=== PATIENT | male | born 1965 | race Two or more races ===

== ENCOUNTER 2020-08-16 08:38 | Inpatient (IN) | payer MEDICAID ==
[~2020-08-16] VITALS: Ht 167.6 cm; Wt 64.8 kg
[2020-08-16 09:05] VITALS: BP 152/80
--- NOTE | 2020-08-16 09:10 | NUR ---
ED Nurse Note: Patient walked in to ER c/o bilateral blurry vision with discharge after unknown powder susbstance got into his eyes 3 days ago, pt had difficulty walking starting yesterday. Patient5 is alcoholik, had 4 beers prior arrival. Fever 100.3 on arrival, tachycardic 111 on arrival. Patient AAO x4, skin is hot to touch.
--- NOTE | 2020-08-16 09:34 | NUR ---
ED Nurse Note: IV line was established on left AC 20 ga, blood collected sent to lab
[2020-08-16 09:50] LABS: HEMATOCRIT 36.5 % (42.0-52.0); HEMOGLOBIN 13.5 G/DL (14.2-18.0); MEAN CORPUSCULAR VOLUME 95 FL (80-99); PLATELET COUNT 78 K/UL (150-450); RED BLOOD COUNT 3.84 M/UL (4.70-6.10); RED CELL DISTRIBUTION WIDTH 11.5 % (11.6-14.8)
[2020-08-16 09:55] LABS: WHITE BLOOD COUNT 22.4 K/UL (4.8-10.8)
[2020-08-16] MEDS ORDERED: cefTRIAXone 2 GM in NS 55 ML IVPB ONE (10:00)
[2020-08-16] MEDS ORDERED: chlordiazePOXIDE 25mg Cap ORAL ONE (10:00)
[2020-08-16 10:08] LABS: ANION GAP 12 mmol/L (5-15); BLOOD UREA NITROGEN 11 mg/dL (7-18); CALCIUM 8.1 MG/DL (8.5-10.1); CARBON DIOXIDE 27 MMOL/L (21-32); CHLORIDE 88 MMOL/L (98-107); POTASSIUM 3.1 MMOL/L (3.5-5.1); SODIUM 127 MMOL/L (136-145)
[2020-08-16 10:11] LABS: ALANINE AMINOTRANSFERASE 61 U/L (12-78); ALBUMIN 3.1 G/DL (3.4-5.0); ALBUMIN/GLOBULIN RATIO 0.6 (1.0-2.7); ALKALINE PHOSPHATASE 130 U/L (46-116); ASPARTATE AMINO TRANSFERASE 158 U/L (15-37); BILIRUBIN,TOTAL 5.1 MG/DL (0.2-1.0)
[2020-08-16 10:25] LABS: BILIRUBIN,DIRECT 3.4 MG/DL (0.0-0.3)
[2020-08-16 10:55] VITALS: BP 148/80
--- NOTE | 2020-08-16 10:56 | NUR ---
ED Nurse Note: Patient is going through alcohol withdrawal, become shaky, anxious, VSS at this time.
--- NOTE | 2020-08-16 10:57 | Emergency Room Report ---
History of Present Illness General Chief Complaint: Eye Problems Source: Patient, Family Member Present Illness HPI Patient is an alcoholic. Patient lives on the streets. Patient has a family. He does not live with the family because he would prefer to be drinking. Patient apparently was not feeling well and return to the family yesterday. Patient was noted to have discharge around the eyes. He was also noted to be slightly febrile appear to be withdrawing from alcohol with some shakes and was was brought to the emergency department for further evaluation. Patient actually drank 4 beers before he arrived. Symptoms are more stable. He denies any chest pain or shortness of breath. However states that he does not feel well. Patient is a poor historian. He does complain of some mild blurry vision because of all of the discharge and crusting around his eyes which could be secondary to conjunctivitis. But he is able to see fingers and does see clearly when we are able to clear his eyes up some. He denies any photophobia. Denies any trauma. No other complaints are noted. Symptoms noted to be moderate to severe. No other modifying factors. No other associated signs and symptoms. No other complaints were noted. Allergies: Coded Allergies: No Known Allergies (Unverified , 08/16/20) COVID-19 Screening Contact w/high risk pt: No Experienced COVID-19 symptoms?: No COVID-19 Testing performed APPLICATIONS TRAINER: No COVID-19 Screening: PUI COVID-19 Patient History Past Medical History: none Past Surgical History: none Social History: Reports: alcohol use - Alcohol abuse. Social History Narrative Patient is homeless. Reviewed Nursing Documentation: PMH: Agreed; PSxH: Agreed Nursing Documentation-PM Past Medical History: No History, Except For Hx Diabetes: Yes - prediabetic, no meds Review of Systems All Other Systems: negative except mentioned in HPI Physical Exam Vital Signs Date Time Temp Pulse Resp B/P (MAP) Pulse Ox O2 Delivery O2 Flow Rate FiO2 08/16/20 08:50 100.2 111 20 152/80 (104) 97 Room Air Sp02 EP Interpretation: reviewed, normal General Appearance: alert, moderate distress, thin Head: atraumatic Eyes: bilateral eye normal inspection - Large amount of discharge consistent with conjunctivitis., bilateral eye PERRL, bilateral eye EOMI, bilateral eye photophobia - Negative for photophobia., bilateral eye visual acuity - Complains of blurry vision but able to read fingers., bilateral eye Scleral Injection - Injected sclera bilaterally. ENT: normal ENT inspection, hearing grossly normal, normal voice Neck: normal inspection, full range of motion, supple, no bony tend Respiratory: normal inspection, lungs clear, normal breath sounds, no respiratory distress, no retraction, no wheezing Cardiovascular #1: no edema, tachycardia Gastrointestinal: normal inspection, normal bowel sounds, non tender, soft, no guarding, no hernia Genitourinary: no CVA tenderness Musculoskeletal: normal inspection, back normal, normal range of motion Neurologic: alert, responsive, speech normal, normal inspection Psychiatric: depressed affect, anxious Skin: no rash Procedures Critical Care Time Critical Care Time Patient had a critical medical condition which untreated could potentially result in life or limb threatening injury. Total critical care time excluding procedures was approximately 45 minutes. Medical Decision Making Diagnostic Impression: Primary Impression: Severe sepsis Additional Impressions: Leukocytosis Alcohol withdrawal Conjunctivitis Fever ER Course Patient presents emergency department today with fever body aches conjunctivitis and alcohol withdrawal. Differential diagnosis is broad and includes those previously stated complaints. Other considerations include sepsis. Given the severity of the patient's presentation I felt this is a highly complex patient. This patient required extensive workup. Patient's laboratory work-up shows elevated white blood cell count elevated lactic acid level and in light of patient's low-grade temperature and this is concerning for infection. However I am uncertain of the source. Therefore we will start broad-spectrum IV antibiotics. This was initiated after blood cultures were obtained. Patient was also given 30 cc/kg fluid bolus. Given the lactic acid level is elevated we will repeat lactic acid level. Focused sepsis exam was performed by myself and completed at 11:00. Case was discussed with Dr. Gentry Marino who is on-call for admissions. Patient will be admitted to the service for further evaluation and treatment. Labs Test 08/16/20 09:25 White Blood Count 22.4 K/UL (4.8-10.8) Red Blood Count 3.84 M/UL (4.70-6.10) Hemoglobin 13.5 G/DL (14.2-18.0) Hematocrit 36.5 % (42.0-52.0) Mean Corpuscular Volume 95 FL (80-99) Mean Corpuscular Hemoglobin 35.2 PG (27.0-31.0) Mean Corpuscular Hemoglobin Concent 37.0 G/DL (32.0-36.0) Red Cell Distribution Width 11.5 % (11.6-14.8) Platelet Count 78 K/UL (150-450) Mean Platelet Volume 10.8 FL (6.5-10.1) Neutrophils (%) (Auto) % (45.0-75.0) Lymphocytes (%) (Auto) % (20.0-45.0) Monocytes (%) (Auto) % (1.0-10.0) Eosinophils (%) (Auto) % (0.0-3.0) Basophils (%) (Auto) % (0.0-2.0) Differential Total Cells Counted 100 Neutrophils % (Manual) 81 % (45-75) Lymphocytes % (Manual) 9 % (20-45) Monocytes % (Manual) 10 % (1-10) Eosinophils % (Manual) 0 % (0-3) Basophils % (Manual) 0 % (0-2) Band Neutrophils 0 % (0-8) Platelet Estimate Decreased Platelet Morphology Normal Red Blood Cell Morphology Normal Sodium Level 127 MMOL/L (136-145) Potassium Level 3.1 MMOL/L (3.5-5.1) Chloride Level 88 MMOL/L (98-107) Carbon Dioxide Level 27 MMOL/L (21-32) Anion Gap 12 mmol/L (5-15) Blood Urea Nitrogen 11 mg/dL (7-18) Creatinine 1.0 MG/DL (0.55-1.30) Estimat Glomerular Filtration Rate > 60 mL/min (>60) Glucose Level 177 MG/DL (74-106) Lactic Acid Level 2.70 mmol/L (0.4-2.0) Calcium Level 8.1 MG/DL (8.5-10.1) Total Bilirubin 5.1 MG/DL (0.2-1.0) Direct Bilirubin 3.4 MG/DL (0.0-0.3) Aspartate Amino Transf (AST/SGOT) 158 U/L (15-37) Alanine Aminotransferase (ALT/SGPT) 61 U/L (12-78) Alkaline Phosphatase 130 U/L (46-116) Total Protein 8.7 G/DL (6.4-8.2) Albumin 3.1 G/DL (3.4-5.0) Globulin 5.6 g/dL Albumin/Globulin Ratio 0.6 (1.0-2.7) EKG Diagnostic Results Rate: normal Rhythm: NSR ST Segments: no acute changes Rhythm Strip Diag. Results EP Interpretation: yes Rate: 90's Rhythm: NSR, no PVC's, no ectopy Chest X-Ray Diagnostic Results Chest X-Ray Diagnostic Results : Chest X-Ray Ordered: Yes # of Views/Limited/Complete: 1 View Indication: Other - Sepsis EP Interpretation: Yes Interpretation: no consolidation, no effusion, no pneumothorax, no acute cardiopulmonary disease Impression: No acute disease Electronically Signed by: Electronically signed by Shimon Mendez MD Last Vital Signs Date Time Temp Pulse Resp B/P (MAP) Pulse Ox O2 Delivery O2 Flow Rate FiO2 08/16/20 09:05 100.2 20 152/80 97 Room Air 08/16/20 08:50 111 Status: improved Disposition: ADMITTED INPATIENT Condition: Serious Scripts No Active Prescriptions or Reported Meds Referrals: NOT CHOSEN IPA/,REFERRING (PCP) Shimon Mendez MD Aug 16, 2020 10:57
--- NOTE | 2020-08-16 11:25 | Diagnostic Imaging Report ---
Indication: Cough Technique: One view of the chest Comparison: none Findings: Lungs and pleural spaces are clear. Heart size is normal. Impression: No acute process
[2020-08-16] MEDS ORDERED: LORazepam Inj 2mg/ml 1ml IV PRN ×2 (11:30→12:04)
[2020-08-16] MEDS ORDERED: Miralax 17gm pkt ORAL PRN (11:30)
[2020-08-16] MEDS ORDERED: Zolpidem 5mg tab ORAL PRN (11:30)
[2020-08-16] MEDS ORDERED: chlordiazePOXIDE 25mg Cap ORAL PRN (11:30)
--- NOTE | 2020-08-16 11:34 | Consultation ---
History of Present Illness General Date patient seen: Aug 16, 2020 Chief Complaint: Eye Problems Present Illness HPI 54 year old male with hx of alcohol dependency, homeless presented to ER with CC of . fever, withdrawing from alcohol with some shakes. Patient actually drank 4 beers before he arrived. Patient is a poor historian. He does complain of some mild blurry vision because of all of the discharge and crusting around his eyes. . Denies any trauma. No other complaints are noted. Allergies: Coded Allergies: No Known Allergies (Unverified , 08/16/20) Medication History No Active Prescriptions or Reported Meds Patient History Healthcare decision maker Resuscitation status Advanced Directive on File Past Medical/Surgical History Past Medical/Surgical History: (1) ETOH abuse Review of Systems All Other Systems: negative except mentioned in HPI Physical Exam General Appearance: WD/WN Lines, tubes and drains: peripheral HEENT: normocephalic Neck: non-tender, supple Respiratory/Chest: chest wall non-tender, normal breath sounds Breasts: no masses Genitourinary/Rectal: normal genital exam Extremities: normal range of motion Last 24 Hour Vital Signs Date Time Temp Pulse Resp B/P (MAP) Pulse Ox O2 Delivery O2 Flow Rate FiO2 08/16/20 10:55 99.9 92 20 148/80 97 Room Air 08/16/20 09:05 100.2 20 152/80 97 Room Air 08/16/20 08:50 100.2 111 20 152/80 (104) 97 Room Air Laboratory Tests Test 08/16/20 09:25 08/16/20 11:11 White Blood Count 22.4 K/UL (4.8-10.8) *H Red Blood Count 3.84 M/UL (4.70-6.10) L Hemoglobin 13.5 G/DL (14.2-18.0) L Hematocrit 36.5 % (42.0-52.0) L Mean Corpuscular Volume 95 FL (80-99) Mean Corpuscular Hemoglobin 35.2 PG (27.0-31.0) H Mean Corpuscular Hemoglobin Concent 37.0 G/DL (32.0-36.0) H Red Cell Distribution Width 11.5 % (11.6-14.8) L Platelet Count 78 K/UL (150-450) L Mean Platelet Volume 10.8 FL (6.5-10.1) H Neutrophils (%) (Auto) % (45.0-75.0) Lymphocytes (%) (Auto) % (20.0-45.0) Monocytes (%) (Auto) % (1.0-10.0) Eosinophils (%) (Auto) % (0.0-3.0) Basophils (%) (Auto) % (0.0-2.0) Differential Total Cells Counted 100 Neutrophils % (Manual) 81 % (45-75) H Lymphocytes % (Manual) 9 % (20-45) L Monocytes % (Manual) 10 % (1-10) Eosinophils % (Manual) 0 % (0-3) Basophils % (Manual) 0 % (0-2) Band Neutrophils 0 % (0-8) Platelet Estimate Decreased L Platelet Morphology Normal Red Blood Cell Morphology Normal Sodium Level 127 MMOL/L (136-145) L Potassium Level 3.1 MMOL/L (3.5-5.1) L Chloride Level 88 MMOL/L (98-107) L Carbon Dioxide Level 27 MMOL/L (21-32) Anion Gap 12 mmol/L (5-15) Blood Urea Nitrogen 11 mg/dL (7-18) Creatinine 1.0 MG/DL (0.55-1.30) Estimat Glomerular Filtration Rate > 60 mL/min (>60) Glucose Level 177 MG/DL (74-106) H Lactic Acid Level 2.70 mmol/L (0.4-2.0) H Pending Calcium Level 8.1 MG/DL (8.5-10.1) L Total Bilirubin 5.1 MG/DL (0.2-1.0) H Direct Bilirubin 3.4 MG/DL (0.0-0.3) H Aspartate Amino Transf (AST/SGOT) 158 U/L (15-37) H Alanine Aminotransferase (ALT/SGPT) 61 U/L (12-78) Alkaline Phosphatase 130 U/L (46-116) H Total Protein 8.7 G/DL (6.4-8.2) H Albumin 3.1 G/DL (3.4-5.0) L Globulin 5.6 g/dL Albumin/Globulin Ratio 0.6 (1.0-2.7) L Serum Alcohol < 3 mg/dL Height (Feet): 5 Height (Inches): 6.00 Weight (Pounds): 150 Medications Current Medications Medications (Trade) Dose Ordered Sig/Shaun Route PRN Reason Start Time Stop Time Status Last Admin Dose Admin Acetaminophen (Tylenol) 650 mg Q4H PRN ORAL fever 08/16/20 11:30 09/15/20 11:29 UNV Chlordiazepoxide (Librium) 25 mg Q6H PRN ORAL Agitation 08/16/20 11:30 08/23/20 11:29 UNV Dextrose (Dextrose 50%) 25 ml Q30M PRN IV Hypoglycemia 08/16/20 11:30 11/14/20 11:29 UNV Dextrose (Dextrose 50%) 50 ml Q30M PRN IV Hypoglycemia 08/16/20 11:30 11/14/20 11:29 UNV Heparin Sodium (Porcine) (Heparin 5000 units/ml) 5,000 units EVERY 12 HOURS SUBQ 08/16/20 21:00 09/30/20 20:59 UNV Lorazepam (Ativan 2mg/ml 1ml) 1 mg EVERY 4 HOURS PRN IV agitation, tachy>100 08/16/20 11:30 08/23/20 11:29 UNV Ondansetron HCl (Zofran) 4 mg Q6H PRN IVP Nausea & Vomiting 08/16/20 11:30 09/15/20 11:29 UNV Polyethylene Glycol (Miralax) 17 gm HSPRN PRN ORAL Constipation 08/16/20 11:30 09/15/20 11:29 UNV Thiamine HCl 100 mg/Folic Acid 1 mg/Magnesium Sulfate 2000 mg/ Multivitamins 10 ml/Potassium Chloride/Sodium Chloride 1,015.2 ml @ 125 mls/ hr Q24H IV 08/16/20 11:30 09/15/20 11:29 UNV Zolpidem Tartrate (Ambien) 5 mg HSPRN PRN ORAL Insomnia 08/16/20 11:30 08/23/20 11:29 UNV Assessment/Plan Problem List: (1) Alcohol withdrawal ICD Codes: F10.239 - Alcohol dependence with withdrawal, unspecified SNOMED: 304731902, 794105988 (2) Fever ICD Codes: R50.9 - Fever, unspecified SNOMED: 943502301 (3) Conjunctivitis ICD Codes: H10.9 - Unspecified conjunctivitis SNOMED: 7703478 Assessment/Plan: iv fluids banana bag Librium and ativan prn ID to see An culture b/o leukocytosis Ty Alexandre MD Aug 16, 2020 11:34
--- NOTE | 2020-08-16 12:08 | NUR ---
ED Nurse Note: Urine sent to lab.
[2020-08-16 12:38] LABS: APPEARANCE,URINE CLEAR; BILIRUBIN, URINE 1+ (NEGATIVE); COLOR,URINE BROWN; GLUCOSE, URINE (UA) NEGATIVE (NEGATIVE); KETONES,URINE NEGATIVE (NEGATIVE); LEUKOCYTE ESTERASE ,URINE 1+ (NEGATIVE); NITRITE,URINE NEGATIVE (NEGATIVE); PH,URINE 5 (4.5-8.0); PROTEIN,URINE 2+ (NEGATIVE); UROBILINOGEN,URINE 4 MG/DL (0.0-1.0)
--- NOTE | 2020-08-16 13:00 | NUR ---
NURSE NOTES:RECEIVED TELEPHONE REPORT FRON ANGEL RIVERA STAFF OF ED DPT. PT WAS ADMITTED THIS AM . PT CAME TO ED DPT ACCOMPANIED WITH DAUGHTER. PT IS HOMELS ABD ADMITTED WITH DX OF SEPSIS,ALCOHOL WITHDRAWAL. PT HAS BEEN SEEN BY DR PINA.Mamadou .PT HAS A HX OF ETOH ABUSE AND PRE-DIABETIC. COVID-19 RAPID DELONTE DONE AND RESULT IS NEGATIVE. A WAITING FOR THE PT TO COME AT [facility].
--- NOTE | 2020-08-16 13:30 | NUR ---
NURSE NOTES: RECEIVED PT VIA [facility] ACCOMPANIED WITH ANGEL RIVERA AND TRANSPORTER STAFF OF ED DPT. PT IS AWAKE AND ALERT ORIENTED X4,DENIES CP OR SOB AT THIS TIME. H.L G# 20 ON RT AC. FULL BODY ASSESSMENT DONE, SKIN INTACT ,GREENISH DISCHARGE ON BILAT EYES NOTED.PT HAS DX OF CONJUNCTIVITIS. PLACED A TELEPHONE CALL TO DR PINA AND MADE AWARE AND NOTIFIED THAT PT IS IN [facility] ROOM 241 BED 1.NO ACUTE DISTRESS NOTED AT THIS TIME . WILL CONT TO MONITOR.
[2020-08-16 14:00] VITALS: BP 134/78
--- NOTE | 2020-08-16 14:17 | NUR ---
ED Nurse Note: Patient was admited to TELE due to severe alcohol withdrawal, weaknes, sevefre conjunctivitis. Patient was transfered to the unit via gurney by ACLS protocol, with all belongings. Patient AAO x4, VSS at this time, skin is warm to touch.
[2020-08-16 16:00] VITALS: BP 130/72
--- NOTE | 2020-08-16 17:14 | History & Physical ---
History and Physical History & Physicial Dictated for Int Med-DR Marino no. [id number] Marquez Trevino MD Aug 16, 2020 17:14
--- NOTE | 2020-08-16 17:30 | NUR ---
NURSE NOTES:Caitlyn CESAR CAME TO SEE THE PT AND MADE AWARE AND NOTIFIED REGARDING PT K+ 3.1 SINCE THIS AM IN ED DPT,BUT PT IS RECEIVING BANANA BAG ALSO PT WITH HIGH TEMP 100.8 ORALLY. PT MEDICATED WITH TYLENOL 650MG P.O PER Caitlyn ORDERS. WILL CONT TO MONITOR.
[2020-08-16] MEDS: Folic Acid 1 MG, Magnesium Sulfate 2,000 MG, Multivitamin - 12 Injection 10 ML in NS w/... IV SCH (17:42)
[2020-08-16] MEDS: Thiamine 100mg in D5W 55ml IVPB SCH (17:43)
[2020-08-16] MEDS: chlordiazePOXIDE 25mg Cap ORAL SCH ×2 (17:44→23:30)
[2020-08-16] MEDS: Tobramycin Op Soln 0.3% 5ml BOTH EYES SCH (17:59)
--- NOTE | 2020-08-16 19:00 | History and Physical Report ---
DATE OF ADMISSION: 08/16/2020 CHIEF COMPLAINT: The patient is a 54-year-old male who presents with a chief complaint of acute alcohol intoxication. HISTORY OF PRESENT ILLNESS: The patient apparently binge drinks. The patient does have a family; however, he has been living on the streets. The patient apparently binge drinks on beer. The patient apparently drank 4 beers prior to presenting to the emergency room. The patient presented to [facility] emergency room complaining of not feeling well. The patient is extremely somnolent secondary to alcohol; however, he states that he has had drainage from both eyes for approximately 2 days. The patient also feels subjective fevers and chills. The patient was admitted for acute alcohol withdrawal, bilateral conjunctivitis, and fever. REVIEW OF SYSTEMS: CONSTITUTIONAL: The patient denies weight loss or weight gain. The patient denies or chills. HEENT: The patient denies ear or throat pain. The patient complains of bilateral eye discharge as above. CARDIOVASCULAR: The patient denies palpitations or chest pain. CHEST: The patient denies wheeze or shortness of breath. ABDOMEN: The patient denies nausea, vomiting, diarrhea, or constipation. GENITOURINARY: The patient denies dysuria or increased frequency of urination. NEUROMUSCULAR: The patient denies seizures or generalized weakness. PAST MEDICAL HISTORY: Significant for alcohol abuse. PAST SURGICAL HISTORY: The patient denies. CURRENT MEDICATIONS: The patient denies. ALLERGIES: No known drug allergies. SOCIAL HISTORY: The patient is single and is currently homeless. The patient denies tobacco use. The patient admits to alcohol use as above. PHYSICAL EXAMINATION: VITAL SIGNS: Temperature 100.2 degrees Fahrenheit, pulse 111, respiratory rate 20, blood pressure 152/80, pulse ox 97% on room air. GENERAL: The patient is well-developed and well-nourished male, who is somnolent but arousable. HEENT: Eyes with crusty discharge bilaterally and conjunctival erythema. NECK: Supple without lymphadenopathy. CHEST: Lungs are clear to auscultation bilaterally without wheezes or rales. CARDIOVASCULAR: Regular rhythm and rate. S1, S2 normal without murmurs, rubs, or gallops. ABDOMEN: Soft, nontender, nondistended. Positive bowel sounds. No evidence of hepatosplenomegaly. Currently, no rebound or guarding noted. EXTREMITIES: Negative for clubbing, cyanosis, or edema. RECTAL/GENITAL: Not performed. NEUROLOGICAL: Cranial nerves II through XII are grossly intact without focal deficits. Motor strength is 5/5 bilaterally. Deep tendon reflexes are 2+ plantar. LABORATORY STUDIES: WBC 22.4, hemoglobin 13.5, hematocrit 36.5 platelets 78,000. Sodium 127, potassium 3.1, chloride 88, CO2 27, BUN 11, creatinine 1.0, glucose 177. Total bilirubin 5.1, direct bilirubin 3.4, AST 158, alkaline phosphatase 130. toxicology revealed serum alcohol level less than 3. Urine drug screen was negative. Chest x-ray was reported as no acute disease. ASSESSMENT: This is a 54-year-old male: 1. Alcohol abuse. 2. Acute alcohol withdrawal. 3. Bilateral conjunctivitis. 4. Elevated liver function tests. TREATMENT: 1. Alcohol dependence/withdrawal. The patient has been placed on Librium and Ativan as needed for alcohol withdrawal symptoms. Gabapentin has been added for withdrawal seizure precaution. 2. Conjunctivitis. The patient has been started on tobramycin eye drops every 6 hours. 3. Elevated liver function tests is probably secondary to chronic alcoholism. Marquez Trevino M.D. DR: Jose JOB#: [id number] CC:
--- NOTE | 2020-08-16 19:05 | NUR ---
NURSE NOTES: Received report from MIGUEL Alejandre.Pt asleep in bed, afebrile and no respiratory distress noted. On RA saturating at 98-99%. With Right AC 20g Iv line intact, patent and asymptomatic.With condom catheter to urine bag in place draining well. Needs were attended. Call light within reach. Bed rails are up. Bed wheels are locked. HOB elevated. Continue plan of care
--- NOTE | 2020-08-16 19:10 | NUR ---
HAND-OFF: Report given to Chris RIVERA
[2020-08-16 20:00] VITALS: BP 104/55
--- NOTE | 2020-08-16 20:00 | NUR ---
TRANSFER TO FLOOR: Patient transferred to 2E, per DR templeton. Report given to MIGUEL Huynh. Belongings and medications given to MIGUEL Huynh. Family and or S/O informed of transfer.
--- NOTE | 2020-08-16 20:39 | NUR ---
NURSE NOTES: Received patient report from MIGUEL VAZQUEZ from SDU. Patient shows no signs of distress or pain at the time. Patient is heavily sleeping, unable to assess neuro but per GEORGE, RN patient is AO x4 german speaking. IV is intact and patent. Running banana bag. Patient is on room air and saturating at 96% with no signs of respiratory distress noted. Bed is in the lowest position, call light is within reach, side rails up x3. Daughter is at bed side. Will continue to monitor.
[2020-08-16] MEDS: Heparin 5000 units/ml inj SUBQ SCH (21:00)
[2020-08-17] VITALS: BP 116/68
[2020-08-17] MEDS: Tobramycin Op Soln 0.3% 5ml BOTH EYES SCH ×4 (00:31→17:49)
[2020-08-17 04:00] VITALS: BP 107/66
[2020-08-17] MEDS: chlordiazePOXIDE 25mg Cap ORAL SCH ×4 (05:55→23:30)
[2020-08-17 07:36] LABS: HEMATOCRIT 33.1 % (42.0-52.0); HEMOGLOBIN 12.2 G/DL (14.2-18.0); MEAN CORPUSCULAR VOLUME 97 FL (80-99); PLATELET COUNT 65 K/UL (150-450); RED BLOOD COUNT 3.41 M/UL (4.70-6.10); RED CELL DISTRIBUTION WIDTH 11.8 % (11.6-14.8); WHITE BLOOD COUNT 16.1 K/UL (4.8-10.8)
[2020-08-17 07:41] LABS: ALANINE AMINOTRANSFERASE 46 U/L (12-78); ALBUMIN 2.3 G/DL (3.4-5.0); ALBUMIN/GLOBULIN RATIO 0.5 (1.0-2.7); ALKALINE PHOSPHATASE 101 U/L (46-116); ANION GAP 9 mmol/L (5-15); ASPARTATE AMINO TRANSFERASE 112 U/L (15-37); BILIRUBIN,TOTAL 4.8 MG/DL (0.2-1.0); BLOOD UREA NITROGEN 10 mg/dL (7-18); CALCIUM 7.5 MG/DL (8.5-10.1); CARBON DIOXIDE 24 MMOL/L (21-32); CHLORIDE 99 MMOL/L (98-107); CREATININE 0.7 MG/DL (0.55-1.30); SODIUM 132 MMOL/L (136-145)
--- NOTE | 2020-08-17 07:45 | NUR ---
NURSE NOTES: Received report from MIGUEL Huynh. Pt is stable and sleeping in bed. Pt has a RAC 20g Sl asymptomatic and intact. Pt skin intact. Bed low and locked, call light in reach and bed alarm on. No s/s or complaint of distress at this time.
--- NOTE | 2020-08-17 07:47 | NUR ---
NURSE HAND-OFF REPORT: Important Events on Shift:[NA] Patient Status: [Full code] Diet: []Regular Pending Orders: [NA] Pending Results/Labs:[NA] Pending MD notification:NA[] Latest Vital Signs: Temperature 100.6 , Pulse 63 , B/P 107 /66 , Respiratory Rate 20 , O2 SAT 98 , Room Air, O2 Flow Rate . Vital Sign Comment: []NA EKG Rhythm: Sinus Rhythm Rhythm change?: N MD Notified?: Rik Marino MD Response: Latest Acosta Fall Score: 45 Fall Risk: High Risk Safety Measures: Call light Within Reach, Bed Alarm Zone 2, Side Rails Side Rails x3, Bed position Low and Locked. Fall Precautions: Yellow Socks Yellow Gown Patient Fall Education Report given to [MIGUEL Gayle].
[2020-08-17 08:00] VITALS: BP 106/58
[2020-08-17] MEDS: Heparin 5000 units/ml inj SUBQ SCH ×2 (08:00→21:00)
--- NOTE | 2020-08-17 08:11 | NUR ---
NURSE NOTES: Plt 65. held heparin. Ned notified, awaiting response.
[2020-08-17] MEDS: cefTRIAXone 1 GM in D5W 55 ML IVPB SCH (10:01)
--- NOTE | 2020-08-17 10:31 | Consultation ---
History of Present Illness General Date patient seen: Aug 17, 2020 Chief Complaint: Eye Problems Reason for Consultation: Sepsis Present Illness HPI Mr. Leos is a 54 yo male with PMHx of EtOH abuse who presented to the ED yesterday with acute alcohol intoxication. He is a homeless male who reports subjective fevers and chills with 4 days of eye discharge. He denies vission problems, N/V/D and abd pain. In the ED he was febrile with WBCs of 22. He was started on ceftraxone and his WBCs are now improving. ID was consulted sepsis PMHx/PSHx None SocHx EtOH abuse FamHx Not contributory Allergies: Coded Allergies: No Known Allergies (Unverified , 08/16/20) Medication History No Active Prescriptions or Reported Meds Patient History Healthcare decision maker Resuscitation status Advanced Directive on File Review of Systems ROS Narrative 12 point ROS negative except as noted in the HPI Physical Exam Last 24 Hour Vital Signs Date Time Temp Pulse Resp B/P (MAP) Pulse Ox O2 Delivery O2 Flow Rate FiO2 08/17/20 09:00 Room Air 08/17/20 08:00 101.8 75 20 106/58 (74) 98 08/17/20 08:00 72 08/17/20 04:00 100.6 77 20 107/66 (80) 98 08/17/20 04:00 63 08/17/20 01:01 100.8 08/17/20 00:00 101.0 69 20 116/68 (84) 98 08/17/20 00:00 63 08/16/20 21:00 Room Air 08/16/20 20:00 70 08/16/20 20:00 97.1 70 20 104/55 (71) 96 08/16/20 18:14 99.5 08/16/20 16:00 91 08/16/20 16:00 100.8 92 22 130/72 (91) 97 08/16/20 14:56 Room Air 08/16/20 14:00 99.7 88 23 134/78 (96) 98 08/16/20 14:00 85 08/16/20 13:30 99.9 92 20 148/80 97 Room Air 08/16/20 10:55 99.9 92 20 148/80 97 Room Air Intake and Output 08/16/20 08/17/20 19:00 07:00 Intake Total 250 ml 200 ml Output Total 700 ml Balance 250 ml -500 ml Intake Oral 250 ml 200 ml Output Urine Total 700 ml # Voids 1 # Bowel Movements 2 2 Laboratory Tests Test 08/16/20 11:11 08/16/20 12:06 08/17/20 06:00 Lactic Acid Level 1.50 mmol/L (0.66-2.22) Urine Color Brown Urine Appearance Clear Urine pH 5 (4.5-8.0) Urine Specific [place] 1.015 (1.005-1.035) Urine Protein 2+ (NEGATIVE) H Urine Glucose (UA) Negative (NEGATIVE) Urine Ketones Negative (NEGATIVE) Urine Blood 4+ (NEGATIVE) H Urine Nitrite Negative (NEGATIVE) Urine Bilirubin 1+ (NEGATIVE) H Urine Ictotest Negative (NEGATIVE) Urine Urobilinogen 4 MG/DL (0.0-1.0) H Urine Leukocyte Esterase 1+ (NEGATIVE) H Urine RBC 2-4 /HPF (0 - 0) H Urine WBC 2-4 /HPF (0 - 0) Urine Squamous Epithelial Cells Occasional /LPF Urine Bacteria Occasional /HPF (NONE) Urine Granular Casts 0-2 /LPF (NONE) H Urine Opiates Screen Negative (NEGATIVE) Urine Barbiturates Screen Negative (NEGATIVE) Phencyclidine (PCP) Screen Negative (NEGATIVE) Urine Amphetamines Screen Negative (NEGATIVE) Urine Benzodiazepines Screen Negative (NEGATIVE) Urine Cocaine Screen Negative (NEGATIVE) Urine Marijuana (THC) Screen Negative (NEGATIVE) White Blood Count 16.1 K/UL (4.8-10.8) H Red Blood Count 3.41 M/UL (4.70-6.10) L Hemoglobin 12.2 G/DL (14.2-18.0) L Hematocrit 33.1 % (42.0-52.0) L Mean Corpuscular Volume 97 FL (80-99) Mean Corpuscular Hemoglobin 35.8 PG (27.0-31.0) H Mean Corpuscular Hemoglobin Concent 36.9 G/DL (32.0-36.0) H Red Cell Distribution Width 11.8 % (11.6-14.8) Platelet Count 65 K/UL (150-450) L Mean Platelet Volume 12.5 FL (6.5-10.1) H Neutrophils (%) (Auto) % (45.0-75.0) Lymphocytes (%) (Auto) % (20.0-45.0) Monocytes (%) (Auto) % (1.0-10.0) Eosinophils (%) (Auto) % (0.0-3.0) Basophils (%) (Auto) % (0.0-2.0) Neutrophils % (Manual) Pending Lymphocytes % (Manual) Pending Platelet Estimate Pending Platelet Morphology Pending Sodium Level 132 MMOL/L (136-145) L Potassium Level 3.0 MMOL/L (3.5-5.1) L Chloride Level 99 MMOL/L (98-107) Carbon Dioxide Level 24 MMOL/L (21-32) Anion Gap 9 mmol/L (5-15) Blood Urea Nitrogen 10 mg/dL (7-18) Creatinine 0.7 MG/DL (0.55-1.30) Estimat Glomerular Filtration Rate > 60 mL/min (>60) Glucose Level 115 MG/DL (74-106) H Calcium Level 7.5 MG/DL (8.5-10.1) L Total Bilirubin 4.8 MG/DL (0.2-1.0) H Direct Bilirubin 3.0 MG/DL (0.0-0.3) H Aspartate Amino Transf (AST/SGOT) 112 U/L (15-37) H Alanine Aminotransferase (ALT/SGPT) 46 U/L (12-78) Alkaline Phosphatase 101 U/L (46-116) Total Protein 6.8 G/DL (6.4-8.2) Albumin 2.3 G/DL (3.4-5.0) L Globulin 4.5 g/dL Albumin/Globulin Ratio 0.5 (1.0-2.7) L Microbiology Date/Time Source Procedure Growth Status 08/16/20 11:11 Nasal Nares - Final Complete 08/16/20 11:11 Nasal Nares - Final Complete Height (Feet): 5 Height (Inches): 6.00 Weight (Pounds): 150 Medications Current Medications Medications (Trade) Dose Ordered Sig/Shaun Route PRN Reason Start Time Stop Time Status Last Admin Dose Admin Acetaminophen (Tylenol) 650 mg Q4H PRN ORAL Temp >100.5 08/16/20 17:00 09/15/20 16:59 08/17/20 10:02 Ceftriaxone Sodium 1 gm/ Dextrose 55 ml @ 110 mls/hr Q24H IVPB 08/17/20 10:00 08/24/20 09:59 08/17/20 10:01 Chlordiazepoxide (Librium) 25 mg Q6H ORAL 08/16/20 17:30 08/23/20 11:29 08/17/20 05:55 Dextrose (Dextrose 50%) 25 ml Q30M PRN IV Hypoglycemia 08/16/20 11:30 11/14/20 11:29 Dextrose (Dextrose 50%) 50 ml Q30M PRN IV Hypoglycemia 08/16/20 11:30 11/14/20 11:29 Folic Acid 1 mg/ Magnesium Sulfate 2000 mg/ Multivitamins 10 ml/Potassium Chloride/Sodium Chloride 1,014.2 ml @ 124.876 mls/hr Q24H IV 08/16/20 15:00 09/15/20 14:59 08/16/20 17:42 Gabapentin (Neurontin) 300 mg THREE TIMES A DAY ORAL 08/16/20 18:00 09/15/20 17:59 08/17/20 08:13 Heparin Sodium (Porcine) (Heparin 5000 units/ml) 5,000 units EVERY 12 HOURS SUBQ 08/16/20 21:00 09/30/20 20:59 Lorazepam (Ativan 2mg/ml 1ml) 1 mg Q4H PRN IV agitation 08/16/20 11:30 08/23/20 11:29 Lorazepam (Ativan 2mg/ml 1ml) 1 mg Q4H PRN IV tachy HR>100 08/16/20 12:04 08/23/20 12:03 Ondansetron HCl (Zofran) 4 mg Q6H PRN IVP Nausea & Vomiting 08/16/20 11:30 09/15/20 11:29 Polyethylene Glycol (Miralax) 17 gm HSPRN PRN ORAL Constipation 08/16/20 11:30 09/15/20 11:29 Thiamine HCl 100 mg/Dextrose 56 ml @ 112 mls/hr Q24H IVPB 08/16/20 15:00 09/15/20 14:59 08/16/20 17:43 Tobramycin Sulfate (Tobramycin Opth Soln) 1 drop Q6HR BOTH EYES 10/1/20 18:00 08/23/20 17:59 08/17/20 05:55 Zolpidem Tartrate (Ambien) 5 mg HSPRN PRN ORAL Insomnia 08/16/20 11:30 08/23/20 11:29 Objective Narrative GEN: NAD on RA HEENT: NCAT, MMM, EOMI, No scleral icterus, Eyes with mild conjunctivitis B/L Neck: Supple no LAD HEART: RRR, S1, S2 PULM: CTAB, No W ABD: Soft NT, ND, +BS EXT: No C/C/E NEURO: A/O x 3 No focal deficits Assessment/Plan Assessment/Plan: 54 yo male with PMHx of EtOH abuse who presented to the ED yesterday with acute alcohol intoxication. B/L Conjuntivitits - EOMI intact no vision problems no significant pain Viral Vs bacterial Sepsis Fever Leukocytosis PLAN - Continue tobramycin Eye drops - Continue Ceftriaxone #2 - Start IV Vancomcyin #1 Pending Cx - f/u Cultures - Monitor CBC and Temps Thank you for this consult. [facility] will continue to follow Ms. Granados with you during her hospitalization. Aden Rice MD Aug 17, 2020 10:31
--- NOTE | 2020-08-17 11:25 | Pulmonology Progress Note ---
Subjective ROS Limited/Unobtainable: Yes Constitutional: Reports: no symptoms Allergies: Coded Allergies: No Known Allergies (Unverified , 08/16/20) Objective Last 24 Hour Vital Signs Date Time Temp Pulse Resp B/P (MAP) Pulse Ox O2 Delivery O2 Flow Rate FiO2 08/17/20 09:00 Room Air 08/17/20 08:00 101.8 75 20 106/58 (74) 98 08/17/20 08:00 72 08/17/20 04:00 100.6 77 20 107/66 (80) 98 08/17/20 04:00 63 08/17/20 01:01 100.8 08/17/20 00:00 101.0 69 20 116/68 (84) 98 08/17/20 00:00 63 08/16/20 21:00 Room Air 08/16/20 20:00 70 08/16/20 20:00 97.1 70 20 104/55 (71) 96 08/16/20 18:14 99.5 08/16/20 16:00 91 08/16/20 16:00 100.8 92 22 130/72 (91) 97 08/16/20 14:56 Room Air 08/16/20 14:00 99.7 88 23 134/78 (96) 98 08/16/20 14:00 85 08/16/20 13:30 99.9 92 20 148/80 97 Room Air Intake and Output 08/16/20 08/17/20 19:00 07:00 Intake Total 250 ml 200 ml Output Total 700 ml Balance 250 ml -500 ml Intake Oral 250 ml 200 ml Output Urine Total 700 ml # Voids 1 # Bowel Movements 2 2 General Appearance: WD/WN Respiratory: chest wall non-tender, lungs clear Cardiovascular: normal peripheral pulses, regularly irregular Abdomen: normal bowel sounds, non distended Genitourinary: normal external genitalia Skin: no lesions Microbiology Date/Time Source Procedure Growth Status 08/16/20 11:11 Nasal Nares - Final Complete 08/16/20 11:11 Nasal Nares - Final Complete 08/16/20 10:25 Nasopharynx SARS-CoV-2 RdRp Gene Assay - Final Complete 08/16/20 00:00 Urine,Clean Catch Urine Culture - Preliminary NO GROWTH Resulted Laboratory Tests 08/16/20 12:06: Urine Color Brown, Urine Appearance Clear, Urine pH 5, Urine Specific [place] 1.015, Urine Protein 2+H, Urine Glucose (UA) Negative, Urine Ketones Negative, Urine Blood 4+H, Urine Nitrite Negative, Urine Bilirubin 1+H, Urine Ictotest Negative, Urine Urobilinogen 4H, Urine Leukocyte Esterase 1+H, Urine RBC 2-4H, Urine WBC 2-4, Urine Squamous Epithelial Cells Occasional, Urine Bacteria Occasi onal, Urine Granular Casts 0-2H, Urine Opiates Screen Negative, Urine Barbiturates Screen Negative, Phencyclidine (PCP) Screen Negative, Urine Amphetamines Screen Negative, Urine Benzodiazepines Screen Negative, Urine Cocaine Screen Negative, Urine Marijuana (THC) Screen Negative 08/17/20 06:00: White Blood Count 16.1H, Red Blood Count 3.41L, Hemoglobin 12.2L, Hematocrit 33.1L, Mean Corpuscular Volume 97, Mean Corpuscular Hemoglobin 35.8H, Mean Corpuscular Hemoglobin Concent 36.9H, Red Cell Distribution Width 11.8, Platelet Count 65L, Mean Platelet Volume 12.5H, Neutrophils (%) (Auto) , Lymphocytes (%) (Auto) , Monocytes (%) (Auto) , Eosinophils (%) (Auto) , Basophils (%) (Auto) , Differential Total Cells Counted 100, Neutrophils % (Manual) 88H, Lymphocytes % (Manual) 2L, Monocytes % (Manual) 8, Eosinophils % (Manual) 1, Basophils % (Manual) 1, Band Neutrophils 0, Platelet Estimate DecreasedL, Platelet Morphology Normal, Red Blood Cell Morphology Normal, Sodium Level 132L, [place] m Level 3.0L, Chloride Level 99, Carbon Dioxide Level 24, Anion Gap 9, Blood Urea Nitrogen 10, Creatinine 0.7, Estimat Glomerular Filtration Rate > 60, Glucose Level 115H, Calcium Level 7.5L, Total Bilirubin 4.8H, Direct Bilirubin 3.0H, Aspartate Amino Transf (AST/SGOT) 112H, Alanine Aminotransferase (ALT/SGPT) 46, Alkaline Phosphatase 101, Total Protein 6.8, Albumin 2.3L, Globulin 4.5, Albumin/Globulin Ratio 0.5L Current Medications Medications (Trade) Dose Ordered Sig/Shaun Route PRN Reason Start Time Stop Time Status Last Admin Dose Admin Acetaminophen (Tylenol) 650 mg Q4H PRN ORAL Temp >100.5 08/16/20 17:00 09/15/20 16:59 08/17/20 10:02 Ceftriaxone Sodium 1 gm/ Dextrose 55 ml @ 110 mls/hr Q24H IVPB 08/17/20 10:00 08/24/20 09:59 08/17/20 10:01 Chlordiazepoxide (Librium) 25 mg Q6H ORAL 08/16/20 17:30 08/23/20 11:29 08/17/20 05:55 Dextrose (Dextrose 50%) 25 ml Q30M PRN IV Hypoglycemia 08/16/20 11:30 11/14/20 11:29 Dextrose (Dextrose 50%) 50 ml Q30M PRN IV Hypoglycemia 08/16/20 11:30 11/14/20 11:29 Folic Acid 1 mg/ Magnesium Sulfate 2000 mg/ Multivitamins 10 ml/Potassium Chloride/Sodium Chloride 1,014.2 ml @ 124.876 mls/hr Q24H IV 08/16/20 15:00 09/15/20 14:59 08/16/20 17:42 Gabapentin (Neurontin) 300 mg THREE TIMES A DAY ORAL 08/16/20 18:00 09/15/20 17:59 08/17/20 08:13 Heparin Sodium (Porcine) (Heparin 5000 units/ml) 5,000 units EVERY 12 HOURS SUBQ 08/16/20 21:00 09/30/20 20:59 Lorazepam (Ativan 2mg/ml 1ml) 1 mg Q4H PRN IV agitation 08/16/20 11:30 08/23/20 11:29 Lorazepam (Ativan 2mg/ml 1ml) 1 mg Q4H PRN IV tachy HR>100 08/16/20 12:04 08/23/20 12:03 Ondansetron HCl (Zofran) 4 mg Q6H PRN IVP Nausea & Vomiting 08/16/20 11:30 09/15/20 11:29 Polyethylene Glycol (Miralax) 17 gm HSPRN PRN ORAL Constipation 08/16/20 11:30 09/15/20 11:29 Thiamine HCl 100 mg/Dextrose 56 ml @ 112 mls/hr Q24H IVPB 08/16/20 15:00 09/15/20 14:59 08/16/20 17:43 Tobramycin Sulfate (Tobramycin Opth Soln) 1 drop Q6HR BOTH EYES 08/16/20 18:00 08/23/20 17:59 08/17/20 05:55 Zolpidem Tartrate (Ambien) 5 mg HSPRN PRN ORAL Insomnia 08/16/20 11:30 08/23/20 11:29 Assessment/Plan Problems: (1) Alcohol withdrawal (2) Fever (3) Conjunctivitis Assessment/Plan feeling better iv fluids banana bag Librium and ativan prn ID to see An culture b/o leukocytosis Ty Alexandre MD Aug 17, 2020 11:25
[2020-08-17 12:00] VITALS: BP 97/54
--- NOTE | 2020-08-17 14:04 | NUR ---
CASE MANAGEMENT:REVIEW WALKED IN TO ER CC; BLURRY VISION. EYE DISCHARGE. DIFFICULTY WALKING. FEVER 100.3 SI: SEPSIS. CONJUNCTIVITIS. ETOH WITHDRAWAL 100.3 11 20 152/80 97% ON RA WBC+22.4 IS: 1L NS BOLUSX2 500CC NS BOLUS IV ROCEPHIN LIBRIUM PO : TO TELEMETRY
[2020-08-17] MEDS: Folic Acid 1 MG, Magnesium Sulfate 2,000 MG, Multivitamin - 12 Injection 10 ML in NS w/... IV SCH (15:16)
[2020-08-17] MEDS: Thiamine 100mg in D5W 55ml IVPB SCH (15:17)
[2020-08-17 16:00] VITALS: BP 101/56
--- NOTE | 2020-08-17 16:20 | Internal Med Progress Note ---
Subjective Physician Name Gentry Marino Attending Physician Gentry Marino MD Current Medications Medications (Trade) Dose Ordered Sig/Shaun Route PRN Reason Start Time Stop Time Status Last Admin Dose Admin Acetaminophen (Tylenol) 650 mg Q4H PRN ORAL Temp >100.5 08/16/20 17:00 09/15/20 16:59 08/17/20 13:55 Ceftriaxone Sodium 1 gm/ Dextrose 55 ml @ 110 mls/hr Q24H IVPB 08/17/20 10:00 08/24/20 09:59 08/17/20 10:01 Chlordiazepoxide (Librium) 25 mg Q6H ORAL 08/16/20 17:30 08/23/20 11:29 08/17/20 11:37 Dextrose (Dextrose 50%) 25 ml Q30M PRN IV Hypoglycemia 08/16/20 11:30 11/14/20 11:29 Dextrose (Dextrose 50%) 50 ml Q30M PRN IV Hypoglycemia 08/16/20 11:30 11/14/20 11:29 Folic Acid 1 mg/ Magnesium Sulfate 2000 mg/ Multivitamins 10 ml/Potassium Chloride/Sodium Chloride 1,014.2 ml @ 124.876 mls/hr Q24H IV 08/16/20 15:00 09/15/20 14:59 08/17/20 15:16 Gabapentin (Neurontin) 300 mg THREE TIMES A DAY ORAL 08/16/20 18:00 09/15/20 17:59 08/17/20 12:23 Heparin Sodium (Porcine) (Heparin 5000 units/ml) 5,000 units EVERY 12 HOURS SUBQ 08/16/20 21:00 09/30/20 20:59 Ibuprofen (Advil) 400 mg ONCE ORAL 08/17/20 14:45 08/17/20 17:00 08/17/20 15:16 Lorazepam (Ativan 2mg/ml 1ml) 1 mg Q4H PRN IV agitation 08/16/20 11:30 08/23/20 11:29 Lorazepam (Ativan 2mg/ml 1ml) 1 mg Q4H PRN IV tachy HR>100 08/16/20 12:04 08/23/20 12:03 Ondansetron HCl (Zofran) 4 mg Q6H PRN IVP Nausea & Vomiting 08/16/20 11:30 09/15/20 11:29 Polyethylene Glycol (Miralax) 17 gm HSPRN PRN ORAL Constipation 08/16/20 11:30 09/15/20 11:29 Thiamine HCl 100 mg/Dextrose 56 ml @ 112 mls/hr Q24H IVPB 08/16/20 15:00 09/15/20 14:59 08/17/20 15:17 Tobramycin Sulfate (Tobramycin Opth Soln) 1 drop Q6HR BOTH EYES 08/16/20 18:00 08/23/20 17:59 08/17/20 12:23 Vancomycin HCl ([facility] pharmacy to dose) 1 ea DAILY PRN MISC Per rx protocol 08/17/20 16:15 09/16/20 16:14 Vancomycin HCl 1 gm/Sodium Chloride 275 ml @ 183.708 mls/hr Q12HR@0600,1800 IVPB 08/17/20 18:00 08/22/20 17:59 Zolpidem Tartrate (Ambien) 5 mg HSPRN PRN ORAL Insomnia 08/16/20 11:30 08/23/20 11:29 Allergies: Coded Allergies: No Known Allergies (Unverified , 08/16/20) Subjective await, alert, responsive, no acute distress. Objective Last Vital Signs Date Time Temp Pulse Resp B/P (MAP) Pulse Ox O2 Delivery O2 Flow Rate FiO2 08/17/20 15:45 98.6 08/17/20 12:00 72 08/17/20 12:00 19 97/54 (68) 97 08/17/20 09:00 Room Air Laboratory Tests Test 08/17/20 06:00 White Blood Count 16.1 K/UL (4.8-10.8) H Red Blood Count 3.41 M/UL (4.70-6.10) L Hemoglobin 12.2 G/DL (14.2-18.0) L Hematocrit 33.1 % (42.0-52.0) L Mean Corpuscular Volume 97 FL (80-99) Mean Corpuscular Hemoglobin 35.8 PG (27.0-31.0) H Mean Corpuscular Hemoglobin Concent 36.9 G/DL (32.0-36.0) H Red Cell Distribution Width 11.8 % (11.6-14.8) Platelet Count 65 K/UL (150-450) L Mean Platelet Volume 12.5 FL (6.5-10.1) H Neutrophils (%) (Auto) % (45.0-75.0) Lymphocytes (%) (Auto) % (20.0-45.0) Monocytes (%) (Auto) % (1.0-10.0) Eosinophils (%) (Auto) % (0.0-3.0) Basophils (%) (Auto) % (0.0-2.0) Differential Total Cells Counted 100 Neutrophils % (Manual) 88 % (45-75) H Lymphocytes % (Manual) 2 % (20-45) L Monocytes % (Manual) 8 % (1-10) Eosinophils % (Manual) 1 % (0-3) Basophils % (Manual) 1 % (0-2) Band Neutrophils 0 % (0-8) Platelet Estimate Decreased L Platelet Morphology Normal Red Blood Cell Morphology Normal Sodium Level 132 MMOL/L (136-145) L Potassium Level 3.0 MMOL/L (3.5-5.1) L Chloride Level 99 MMOL/L (98-107) Carbon Dioxide Level 24 MMOL/L (21-32) Anion Gap 9 mmol/L (5-15) Blood Urea Nitrogen 10 mg/dL (7-18) Creatinine 0.7 MG/DL (0.55-1.30) Estimat Glomerular Filtration Rate > 60 mL/min (>60) Glucose Level 115 MG/DL (74-106) H Calcium Level 7.5 MG/DL (8.5-10.1) L Total Bilirubin 4.8 MG/DL (0.2-1.0) H Direct Bilirubin 3.0 MG/DL (0.0-0.3) H Aspartate Amino Transf (AST/SGOT) 112 U/L (15-37) H Alanine Aminotransferase (ALT/SGPT) 46 U/L (12-78) Alkaline Phosphatase 101 U/L (46-116) Total Protein 6.8 G/DL (6.4-8.2) Albumin 2.3 G/DL (3.4-5.0) L Globulin 4.5 g/dL Albumin/Globulin Ratio 0.5 (1.0-2.7) L Microbiology Date/Time Source Procedure Growth Status 08/16/20 11:11 Nasal Nares - Final Complete 08/16/20 11:11 Nasal Nares - Final Complete 08/16/20 10:25 Nasopharynx SARS-CoV-2 RdRp Gene Assay - Final Complete 08/16/20 00:00 Urine,Clean Catch Urine Culture - Preliminary NO GROWTH Resulted Intake and Output 08/16/20 08/17/20 19:00 07:00 Intake Total 250 ml 200 ml Output Total 700 ml Balance 250 ml -500 ml Intake Oral 250 ml 200 ml Output Urine Total 700 ml # Voids 1 # Bowel Movements 2 2 Objective General: No acute distress, awake and alert HEENT: NCAT, sclera anicteric, PERRL, EOMI. Neck: Supple, no significant jugular venous distention, Lungs: Good inspiratory effort, clear to auscultation bilaterally, no Wheeze or Rales. Heart: Regular rate and rhythm, normal S1/S2, no murmurs/gallops Abdomen: soft, nontender, nondistended. Normoactive bowel sounds. / Rectal: Refused and deferred. Extremities: No Cyanosis , clubbing or edema. Neuro: A&O x 3, Able to move all extremities Skin: warm, no rashes or lesions Psych: Normal mood and affect Assessment/Plan Assessment/Plan 1. Alcohol abuse. 2. Acute alcohol withdrawal. 3. Bilateral conjunctivitis. 4. Elevated liver function tests. TREATMENT: 1. Alcohol dependence/withdrawal. The patient has been placed on Librium and Ativan as needed for alcohol withdrawal symptoms. Gabapentin has been added for withdrawal seizure precaution. 2. Conjunctivitis. The patient has been started on tobramycin eye drops every 6 hours. 3. Elevated liver function tests is probably secondary to chronic alcoholism. Abx: vancomycin IV, Rocephin IV, tobramycin eyedrop Gentry Marino MD Aug 17, 2020 16:20
--- NOTE | 2020-08-17 16:54 | NUR ---
BAR STEWARD NOTE SW attempted to meet w/ pt to discuss homelessness 3x at 12pm, 3pm, and 4pm. PT was resting w/ closed eyes and did not respond to this SW. SW will continue to F/U. Per chart review, there is an address on the facesheet and reported ETOH abuse. RUDS all negative. Emergency contact listed as Yani Torres (child) [phone].
[2020-08-17] MEDS: Vancomycin 1 GM in NS 275 ML IVPB SCH (17:41)
[2020-08-17 20:00] VITALS: BP 90/51
--- NOTE | 2020-08-17 20:02 | NUR ---
NURSE HAND-OFF REPORT: Important Events on Shift: pt fever 101.1, 102.0, not alleviated by Tylenol, PRN for motrin. // Patient Status: fc, stable Diet: regular diet Pending Orders: UA Pending Results/Labs: Pt need a stool collection Pending notification: Latest Vital Signs: Temperature 98.6 , Pulse 64 , B/P 101 /56 , Respiratory Rate 18 , O2 SAT 97 , Room Air, O2 Flow Rate . Vital Sign Comment: EKG Rhythm: Sinus Rhythm Rhythm change?: N Notified?: Rik Marino MD Response: Latest Acosta Fall Score: 45 Fall Risk: High Risk Safety Measures: Call light Within Reach, Bed Alarm Zone 2, Side Rails Side Rails x3, Bed position Low and Locked. Fall Precautions: Yellow Socks Yellow Gown Patient Fall Education Report given to Brittney RIVERA.
--- NOTE | 2020-08-17 20:10 | NUR ---
NURSE NOTES: Patient received from MIGUEL Gayle. Patient is sleeping. He is oriented x 3. Patient has an IV on his Right AC, patent and running. Patient is not showing any signs of distress. Bed is in the lowest position, call light within reach. Will continue to monitor.
[2020-08-18] VITALS: BP 90/54
[2020-08-18] MEDS: Tobramycin Op Soln 0.3% 5ml BOTH EYES SCH ×5 (00:54→23:39)
[2020-08-18 04:00] VITALS: BP 104/60
[2020-08-18] MEDS: Vancomycin 1 GM in NS 275 ML IVPB SCH ×2 (05:58→17:57)
[2020-08-18] MEDS: chlordiazePOXIDE 25mg Cap ORAL SCH (05:59)
[2020-08-18 08:00] VITALS: BP 99/57
--- NOTE | 2020-08-18 08:10 | NUR ---
NURSE HAND-OFF REPORT: Important Events on Shift:[Episode of Bradycardia of 52] Patient Status: [Stable] Diet: [] Pending Orders: [] Pending Results/Labs:[] Pending MD notification:[] Latest Vital Signs: Temperature 97.7 , Pulse 68 , B/P 104 /60 , Respiratory Rate 19 , O2 SAT 95 , Room Air, O2 Flow Rate . Vital Sign Comment: [] EKG Rhythm: Sinus Rhythm Rhythm change?: Y MD Notified?: N -Dr. Ned LOYD Response: Latest Acosta Fall Score: 45 Fall Risk: High Risk Safety Measures: Call light Within Reach, Bed Alarm Zone 2, Side Rails Side Rails x3, Bed position Low and Locked. Fall Precautions: Yellow Socks Yellow Gown Patient Fall Education Report given to [Essence, RN].
--- NOTE | 2020-08-18 08:11 | NUR ---
NURSE NOTES: Received patient in bed asleep. No SOB or acute distress. IV line intact and patent. Condom catheter intact, draining dark orange urine. HOB elevated. Bed locked in low position. Call light within reach. Will continue plan of care.
--- NOTE | 2020-08-18 08:52 | Infectious Diseases Prog Note ---
Assessment/Plan 54 yo male with PMHx of EtOH abuse who presented to the ED yesterday with acute alcohol intoxication. B/L Conjuntivitits - EOMI intact no vision problems no significant pain Viral Vs bacterial Sepsis Fever Leukocytosis PLAN - Continue tobramycin #3/7 Eye drops - Continue Ceftriaxone #3 - Start IV Vancomcyin #2 Pending Cx - f/u Cultures - Monitor CBC and Temps Thank you for this consult. [facility] will continue to follow Ms. Granados with you during her hospitalization. Subjective Allergies: Coded Allergies: No Known Allergies (Unverified , 08/16/20) Single low grade temps No labs back yet Conjunctivitis improving Objective Last 24 Hour Vital Signs Date Time Temp Pulse Resp B/P (MAP) Pulse Ox O2 Delivery O2 Flow Rate FiO2 08/18/20 08:00 100.6 67 20 99/57 (71) 94 08/18/20 04:00 68 08/18/20 04:00 97.7 70 19 104/60 (75) 95 08/18/20 00:00 53 08/18/20 00:00 96.8 69 20 90/54 (66) 95 08/17/20 21:00 Room Air 08/17/20 20:00 52 08/17/20 20:00 97.1 70 20 90/51 (64) 99 08/17/20 16:00 98.6 64 18 101/56 (71) 97 08/17/20 16:00 84 08/17/20 15:45 98.6 08/17/20 14:25 100.0 08/17/20 12:00 72 08/17/20 12:00 101.7 76 19 97/54 (68) 97 08/17/20 10:30 101.2 08/17/20 09:00 Room Air Height (Feet): 5 Height (Inches): 6.00 Weight (Pounds): 150 GEN: NAD on RA HEENT: NCAT, MMM, EOMI, No scleral icterus, Eyes with mild conjunctivitis B/L CHEST Equal rise and fall B/L ABD: Soft NT Microbiology Date/Time Source Procedure Growth Status 08/17/20 06:00 Urine,Clean Catch Urine Culture - Preliminary NO GROWTH AFTER 24 HOURS Resulted 08/16/20 11:56 Rectum VRE Culture - Final NO VANCOMYCIN RESISTANT ENTEROCOCCUS ... Complete 08/16/20 11:56 Nasal Nares MRSA Culture - Final NO METHICILLIN RESISTANT STAPH AUREUS... Complete 08/16/20 11:11 Nasal Nares - Final Complete 08/16/20 11:11 Nasal Nares - Final Complete 08/16/20 10:25 Nasopharynx SARS-CoV-2 RdRp Gene Assay - Final Complete 08/16/20 09:25 Blood Blood Culture - Preliminary NO GROWTH AFTER 24 HOURS Resulted 08/16/20 09:05 Blood Blood Culture - Preliminary NO GROWTH AFTER 24 HOURS Resulted 08/16/20 00:00 Urine,Clean Catch Urine Culture - Preliminary NO GROWTH AFTER 24 HOURS Resulted Laboratory Tests Test 08/17/20 17:57 POC Whole Blood Glucose 126 MG/DL (74-106) H Current Medications Medications (Trade) Dose Ordered Sig/Shaun Route PRN Reason Start Time Stop Time Status Last Admin Dose Admin Acetaminophen (Tylenol) 650 mg Q4H PRN ORAL Temp >100.5 08/16/20 17:00 09/15/20 16:59 08/18/20 08:47 Ceftriaxone Sodium 1 gm/ Dextrose 55 ml @ 110 mls/hr Q24H IVPB 08/17/20 10:00 08/24/20 09:59 08/17/20 10:01 Chlordiazepoxide (Librium) 25 mg Q6H ORAL 08/16/20 17:30 08/23/20 11:29 08/18/20 05:59 Dextrose (Dextrose 50%) 25 ml Q30M PRN IV Hypoglycemia 08/16/20 11:30 11/14/20 11:29 Dextrose (Dextrose 50%) 50 ml Q30M PRN IV Hypoglycemia 08/16/20 11:30 11/14/20 11:29 Folic Acid 1 mg/ Magnesium Sulfate 2000 mg/ Multivitamins 10 ml/Potassium Chloride/Sodium Chloride 1,014.2 ml @ 124.876 mls/hr Q24H IV 08/16/20 15:00 09/15/20 14:59 08/17/20 15:16 Gabapentin (Neurontin) 300 mg THREE TIMES A DAY ORAL 08/16/20 18:00 09/15/20 17:59 08/18/20 08:46 Heparin Sodium (Porcine) (Heparin 5000 units/ml) 5,000 units EVERY 12 HOURS SUBQ 08/16/20 21:00 09/30/20 20:59 Lorazepam (Ativan 2mg/ml 1ml) 1 mg Q4H PRN IV agitation 08/16/20 11:30 08/23/20 11:29 Lorazepam (Ativan 2mg/ml 1ml) 1 mg Q4H PRN IV tachy HR>100 08/16/20 12:04 08/23/20 12:03 Ondansetron HCl (Zofran) 4 mg Q6H PRN IVP Nausea & Vomiting 08/16/20 11:30 09/15/20 11:29 Polyethylene Glycol (Miralax) 17 gm HSPRN PRN ORAL Constipation 08/16/20 11:30 09/15/20 11:29 Thiamine HCl 100 mg/Dextrose 56 ml @ 112 mls/hr Q24H IVPB 08/16/20 15:00 09/15/20 14:59 08/17/20 15:17 Tobramycin Sulfate (Tobramycin Opth Soln) 1 drop Q6HR BOTH EYES 08/16/20 18:00 08/23/20 17:59 08/18/20 05:58 Vancomycin HCl ([facility] pharmacy to dose) 1 ea DAILY PRN MISC Per rx protocol 08/17/20 16:15 09/16/20 16:14 Vancomycin HCl 1 gm/Sodium Chloride 275 ml @ 183.708 mls/hr Q12HR@0600,1800 IVPB 08/17/20 18:00 08/22/20 17:59 08/18/20 05:58 Zolpidem Tartrate (Ambien) 5 mg HSPRN PRN ORAL Insomnia 08/16/20 11:30 08/23/20 11:29 Aden Rice MD Aug 18, 2020 08:52
--- NOTE | 2020-08-18 08:52 | NUR ---
NURSE NOTES: Ice pack administered.
[2020-08-18] MEDS: Heparin 5000 units/ml inj SUBQ SCH ×2 (09:00→20:46)
[2020-08-18 09:13] LABS: HEMOGLOBIN 11.7 G/DL (14.2-18.0); MEAN CORPUSCULAR VOLUME 100 FL (80-99); PLATELET COUNT 52 K/UL (150-450); RED BLOOD COUNT 3.32 M/UL (4.70-6.10)
[2020-08-18 09:30] LABS: AMMONIA 23 umol/L (11-32)
[2020-08-18 10:02] LABS: ALANINE AMINOTRANSFERASE 46 U/L (12-78); ALBUMIN 2.1 G/DL (3.4-5.0); ALBUMIN/GLOBULIN RATIO 0.5 (1.0-2.7); ALKALINE PHOSPHATASE 98 U/L (46-116); ANION GAP 9 mmol/L (5-15); ASPARTATE AMINO TRANSFERASE 106 U/L (15-37); BILIRUBIN,TOTAL 5.5 MG/DL (0.2-1.0); BLOOD UREA NITROGEN 10 mg/dL (7-18); CALCIUM 7.4 MG/DL (8.5-10.1); CARBON DIOXIDE 24 MMOL/L (21-32); CHLORIDE 102 MMOL/L (98-107); CHOLESTEROL < 50 MG/DL (< 200); CREATININE 0.6 MG/DL (0.55-1.30); FERRITIN 1315 NG/ML (8-388); GAMMA GLUTAMYL TRANSPEPTIDASE 745 U/L (5-85); HDL CHOLESTEROL 7 MG/DL (40-60); PHOSPHORUS 1.9 MG/DL (2.5-4.9); POTASSIUM 3.4 MMOL/L (3.5-5.1); SODIUM 134 MMOL/L (136-145); TRIGLYCERIDES 114 MG/DL (30-150)
[2020-08-18 10:32] LABS: % IRON SATURATION 131 % (15-50); IRON 119 ug/dL (50-175); TOTAL IRON BINDING CAPACITY 91 ug/dL (250-450)
[2020-08-18] MEDS: cefTRIAXone 1 GM in D5W 55 ML IVPB SCH (10:38)
--- NOTE | 2020-08-18 11:30 | NUR ---
NURSE NOTES: Pt transferred from tele via bed. Received report from MIGUEL Lowry. All belongings were accounted. Pt awake, alert and oriented, [place] Leonean speaking. No acute distress noted. Denies any pain at this time. Skin intact. IV line intact and patent. Condom catheter intact, draining dark orange urine. Bed locked in low position. Call light within reach. Will continue plan of care.
--- NOTE | 2020-08-18 11:36 | NUR ---
NURSE NOTES: [id number], report given to Vianca. Belongings accounted for. Still febrile at 102.6F.
--- NOTE | 2020-08-18 11:43 | Internal Med Progress Note ---
Subjective Date of Service: Aug 18, 2020 Physician Name Marquez Trevino Attending Physician Gentry Marino MD Current Medications Medications (Trade) Dose Ordered Sig/Shaun Route PRN Reason Start Time Stop Time Status Last Admin Dose Admin Acetaminophen (Tylenol) 650 mg Q4H PRN ORAL Temp >100.5 08/16/20 17:00 09/15/20 16:59 08/18/20 08:47 Ceftriaxone Sodium 1 gm/ Dextrose 55 ml @ 110 mls/hr Q24H IVPB 08/17/20 10:00 08/24/20 09:59 08/18/20 10:38 Chlordiazepoxide (Librium) 25 mg Q6H PRN ORAL For Anxiety 08/18/20 11:45 08/23/20 11:29 UNV Dextrose (Dextrose 50%) 25 ml Q30M PRN IV Hypoglycemia 08/16/20 11:30 11/14/20 11:29 Dextrose (Dextrose 50%) 50 ml Q30M PRN IV Hypoglycemia 08/16/20 11:30 11/14/20 11:29 Folic Acid 1 mg/ Magnesium Sulfate 2000 mg/ Multivitamins 10 ml/Potassium Chloride/Sodium Chloride 1,014.2 ml @ 124.876 mls/hr Q24H IV 08/16/20 15:00 09/15/20 14:59 08/17/20 15:16 Gabapentin (Neurontin) 300 mg THREE TIMES A DAY ORAL 08/16/20 18:00 09/15/20 17:59 08/18/20 08:46 Heparin Sodium (Porcine) (Heparin 5000 units/ml) 5,000 units EVERY 12 HOURS SUBQ 08/16/20 21:00 09/30/20 20:59 Lorazepam (Ativan 2mg/ml 1ml) 1 mg Q4H PRN IV agitation 08/16/20 11:30 08/23/20 11:29 Lorazepam (Ativan 2mg/ml 1ml) 1 mg Q4H PRN IV tachy HR>100 08/16/20 12:04 08/23/20 12:03 Ondansetron HCl (Zofran) 4 mg Q6H PRN IVP Nausea & Vomiting 08/16/20 11:30 09/15/20 11:29 Polyethylene Glycol (Miralax) 17 gm HSPRN PRN ORAL Constipation 08/16/20 11:30 09/15/20 11:29 Thiamine HCl 100 mg/Dextrose 56 ml @ 112 mls/hr Q24H IVPB 08/16/20 15:00 09/15/20 14:59 08/17/20 15:17 Tobramycin Sulfate (Tobramycin Opth Soln) 1 drop Q6HR BOTH EYES 08/16/20 18:00 08/23/20 17:59 08/18/20 05:58 Vancomycin HCl (Vanco pharmacy to dose) 1 ea DAILY PRN MISC Per rx protocol 08/17/20 16:15 09/16/20 16:14 Vancomycin HCl 1 gm/Sodium Chloride 275 ml @ 183.708 mls/hr Q12HR@0600,1800 IVPB 08/17/20 18:00 08/22/20 17:59 08/18/20 05:58 Zolpidem Tartrate (Ambien) 5 mg HSPRN PRN ORAL Insomnia 08/16/20 11:30 08/23/20 11:29 Allergies: Coded Allergies: No Known Allergies (Unverified , 08/16/20) ROS Limited/Unobtainable: No Constitutional: Reports: no symptoms HEENT: Reports: eye pain Cardiovascular: Reports: no symptoms Respiratory: Reports: no symptoms Gastrointestinal/Abdominal: Reports: no symptoms Genitourinary: Reports: no symptoms Neurologic/Psychiatric: Reports: no symptoms Subjective 54 YO M admitted with alcohol intoxication. Now alcohol withdrawal and conjunctivitis. Cover for Int Johnathon-DR Marino Objective Last Vital Signs Date Time Temp Pulse Resp B/P (MAP) Pulse Ox O2 Delivery O2 Flow Rate FiO2 08/18/20 08:00 100.6 67 20 99/57 (71) 94 08/17/20 21:00 Room Air Laboratory Tests Test 08/17/20 17:57 08/18/20 08:15 POC Whole Blood Glucose 126 MG/DL (74-106) H White Blood Count 11.0 K/UL (4.8-10.8) H Red Blood Count 3.32 M/UL (4.70-6.10) L Hemoglobin 11.7 G/DL (14.2-18.0) L Hematocrit 33.0 % (42.0-52.0) L Mean Corpuscular Volume 100 FL (80-99) H Mean Corpuscular Hemoglobin 35.2 PG (27.0-31.0) H Mean Corpuscular Hemoglobin Concent 35.3 G/DL (32.0-36.0) Red Cell Distribution Width 12.0 % (11.6-14.8) Platelet Count 52 K/UL (150-450) L Mean Platelet Volume 14.8 FL (6.5-10.1) H Neutrophils (%) (Auto) % (45.0-75.0) Lymphocytes (%) (Auto) % (20.0-45.0) Monocytes (%) (Auto) % (1.0-10.0) Eosinophils (%) (Auto) % (0.0-3.0) Basophils (%) (Auto) % (0.0-2.0) Differential Total Cells Counted 100 Neutrophils % (Manual) 77 % (45-75) H Lymphocytes % (Manual) 6 % (20-45) L Monocytes % (Manual) 10 % (1-10) Eosinophils % (Manual) 2 % (0-3) Basophils % (Manual) 0 % (0-2) Band Neutrophils 5 % (0-8) Nucleated Red Blood Cells 1 /100 WBC Platelet Estimate Decreased L Platelet Morphology Normal Macrocytosis 1+ Sodium Level 134 MMOL/L (136-145) L Potassium Level 3.4 MMOL/L (3.5-5.1) L Chloride Level 102 MMOL/L (98-107) Carbon Dioxide Level 24 MMOL/L (21-32) Anion Gap 9 mmol/L (5-15) Blood Urea Nitrogen 10 mg/dL (7-18) Creatinine 0.6 MG/DL (0.55-1.30) Estimat Glomerular Filtration Rate > 60 mL/min (>60) Glucose Level 94 MG/DL (74-106) Hemoglobin A1c 6.7 % (4.3-6.0) H Uric Acid 2.7 MG/DL (2.6-7.2) Calcium Level 7.4 MG/DL (8.5-10.1) L Phosphorus Level 1.9 MG/DL (2.5-4.9) L Magnesium Level 2.3 MG/DL (1.8-2.4) Iron Level 119 ug/dL (50-175) Total Iron Binding Capacity 91 ug/dL (250-450) L Percent Iron Saturation 131 % (15-50) H Unsaturated Iron Binding -28 ug/dL (112-346) L Ferritin 1315 NG/ML (8-388) H Total Bilirubin 5.5 MG/DL (0.2-1.0) H Direct Bilirubin 4.0 MG/DL (0.0-0.3) H Gamma Glutamyl Transpeptidase 745 U/L (5-85) H Aspartate Amino Transf (AST/SGOT) 106 U/L (15-37) H Alanine Aminotransferase (ALT/SGPT) 46 U/L (12-78) Alkaline Phosphatase 98 U/L (46-116) Ammonia 23 umol/L (11-32) C-Reactive Protein, Quantitative 2.5 mg/dL (0.00-0.90) H Pro-B-Type Natriuretic Peptide 358 pg/mL (0-125) H Total Protein 6.5 G/DL (6.4-8.2) Albumin 2.1 G/DL (3.4-5.0) L Globulin 4.4 g/dL Albumin/Globulin Ratio 0.5 (1.0-2.7) L Triglycerides Level 114 MG/DL (30-150) Cholesterol Level < 50 MG/DL (< 200) LDL Cholesterol 26 mg/dL (<100) HDL Cholesterol 7 MG/DL (40-60) L Cholesterol/HDL Ratio 7.1 (3.3-4.4) H Vitamin B12 Level > 2000 PG/ML (193-986) H Folate 17.4 NG/ML (8.6-58.9) Thyroid Stimulating Hormone (TSH) 6.296 uiU/mL (0.358-3.740) Microbiology Date/Time Source Procedure Growth Status 08/17/20 06:00 Urine,Clean Catch Urine Culture - Preliminary NO GROWTH AFTER 24 HOURS Resulted 08/16/20 11:56 Rectum VRE Culture - Final NO VANCOMYCIN RESISTANT ENTEROCOCCUS ... Complete 08/16/20 11:56 Nasal Nares MRSA Culture - Final NO METHICILLIN RESISTANT STAPH AUREUS... Complete 08/16/20 11:11 Nasal Nares - Final Complete 08/16/20 11:11 Nasal Nares - Final Complete 08/16/20 10:25 Nasopharynx SARS-CoV-2 RdRp Gene Assay - Final Complete 08/16/20 09:25 Blood Blood Culture - Preliminary NO GROWTH AFTER 24 HOURS Resulted 08/16/20 09:05 Blood Blood Culture - Preliminary NO GROWTH AFTER 24 HOURS Resulted 08/16/20 00:00 Urine,Clean Catch Urine Culture - Preliminary NO GROWTH AFTER 24 HOURS Resulted Intake and Output 08/17/20 08/18/20 19:00 07:00 Intake Total 1400 ml 250 ml Output Total 600 ml Balance 800 ml 250 ml Intake Oral 600 ml 250 ml Other 800 ml Output Urine Total 600 ml # Bowel Movements 3 2 Objective PHYSICAL EXAMINATION: GENERAL: The patient is well-developed and well-nourished male, who is somnolent but arousable. HEENT: Eyes with crusty discharge bilaterally and conjunctival erythema. NECK: Supple without lymphadenopathy. CHEST: Lungs are clear to auscultation bilaterally without wheezes or rales. CARDIOVASCULAR: Regular rhythm and rate. S1, S2 normal without murmurs, rubs, or gallops. ABDOMEN: Soft, nontender, nondistended. Positive bowel sounds. No evidence of hepatosplenomegaly. Currently, no rebound or guarding noted. EXTREMITIES: Negative for clubbing, cyanosis, or edema. RECTAL/GENITAL: Not performed. NEUROLOGICAL: Cranial nerves II through XII are grossly intact without focal deficits. Motor strength is 5/5 bilaterally. Deep tendon reflexes are 2+ plantar. Assessment/Plan Assessment/Plan ASSESSMENT: This is a 54-year-old male: 1. Alcohol abuse. 2. Acute alcohol withdrawal. 3. Bilateral conjunctivitis. 4. Elevated liver function tests. 5. Low grade fever TREATMENT: 1. Alcohol dependence/withdrawal. The patient has been placed on Librium and Ativan as needed for alcohol withdrawal symptoms. Gabapentin has been added for withdrawal seizure precaution. 2. Conjunctivitis. The patient has been started on tobramycin eye drops every 6 hours. 3. Elevated liver function tests is probably secondary to chronic alcoholism. 4. Urine and blood culture = no growth; Continue vanco and ceftriaxone per ID=Dr Rice. Marquez Trevino MD Aug 18, 2020 11:43
[2020-08-18] MEDS ORDERED: chlordiazePOXIDE 25mg Cap ORAL PRN (11:45)
[2020-08-18 12:00] VITALS: BP 93/58
[2020-08-18] MEDS ORDERED: NS 275ml ONE (12:53)
--- NOTE | 2020-08-18 13:49 | Consultation ---
Consult Note Consult Note I am asked to evaluate the patient for fluid and electrolyte management Allergies: No Known Allergies (Unverified , 08/16/20) COVID-19 Screening Contact w/high risk pt: No Experienced COVID-19 symptoms?: No COVID-19 Testing performed WAD IMPREGNATOR: No COVID-19 Screening: PUI COVID-19 Social History: Reports: alcohol use - Alcohol abuse. Social History Narrative Patient is homeless. Past Medical History: No History, Except For Hx Diabetes: Yes - prediabetic, no meds HISTORY OF PRESENT ILLNESS: The patient apparently binge drinks. The patient does have a family; however, he has been living on the streets. The patient apparently binge drinks on beer. The patient apparently drank 4 beers prior to presenting to the emergency room. The patient presented to [facility] emergency room complaining of not feeling well. The patient is extremely somnolent secondary to alcohol; however, he states that he has had drainage from both eyes for approximately 2 days. The patient also feels subjective fevers and chills. The patient was admitted for acute alcohol withdrawal, bilateral conjunctivitis, and fever. VITAL SIGNS: Temperature 100.2 degrees Fahrenheit, pulse 111, respiratory rate 20, blood pressure 152/80, pulse ox 97% on room air. GENERAL: The patient is well-nourished male, who is somnolent but arousable. HEENT: Eyes with crusty discharge bilaterally and conjunctival erythema. NECK: Supple without lymphadenopathy. CHEST: Lungs are clear to auscultation bilaterally without wheezes or rales. CARDIOVASCULAR: Regular rhythm and rate. Tachycardic at times. S1, S2 normal without murmurs, rubs, or gallops. ABDOMEN: Soft, nontender, somewhat distended. Positive bowel sounds. No evidence of hepatosplenomegaly. Currently, no rebound or guarding noted. EXTREMITIES: Negative for clubbing, cyanosis, or edema. RECTAL/GENITAL: Not performed. . Assessment/Plan Imp: Abnormal electrolytes Alcohol withdrawal Alcoholic liver disease Fever, sepsis Plan: IV supplements of electrolyte deficits Thiamine Hydration Per orders Yves Otero MD Aug 18, 2020 13:49
[2020-08-18] MEDS ORDERED: Potassium Phosphate 21 MM in NS 275 ML IV ONE (15:00)
--- NOTE | 2020-08-18 15:02 | Pulmonology Progress Note ---
Subjective ROS Limited/Unobtainable: No Constitutional: Reports: no symptoms HEENT: Repors: no symptoms Respiratory: Reports: no symptoms Allergies: Coded Allergies: No Known Allergies (Unverified , 08/16/20) Objective Last 24 Hour Vital Signs Date Time Temp Pulse Resp B/P (MAP) Pulse Ox O2 Delivery O2 Flow Rate FiO2 08/18/20 12:00 98.6 77 18 93/58 (70) 98 08/18/20 09:17 102.6 08/18/20 09:00 Room Air 08/18/20 08:00 100.6 67 20 99/57 (71) 94 08/18/20 08:00 65 08/18/20 04:00 68 08/18/20 04:00 97.7 70 19 104/60 (75) 95 08/18/20 00:00 53 08/18/20 00:00 96.8 69 20 90/54 (66) 95 08/17/20 21:00 Room Air 08/17/20 20:00 52 08/17/20 20:00 97.1 70 20 90/51 (64) 99 08/17/20 16:00 98.6 64 18 101/56 (71) 97 08/17/20 16:00 84 08/17/20 15:45 98.6 Intake and Output 08/17/20 08/18/20 19:00 07:00 Intake Total 1400 ml 250 ml Output Total 600 ml Balance 800 ml 250 ml Intake Oral 600 ml 250 ml Other 800 ml Output Urine Total 600 ml # Bowel Movements 3 2 General Appearance: WD/WN Respiratory: chest wall non-tender, lungs clear Cardiovascular: normal peripheral pulses, regularly irregular Abdomen: normal bowel sounds, non distended Genitourinary: normal external genitalia Skin: no lesions Microbiology Date/Time Source Procedure Growth Status 08/17/20 06:00 Urine,Clean Catch Urine Culture - Preliminary NO GROWTH AFTER 24 HOURS Resulted 08/16/20 11:56 Rectum VRE Culture - Final NO VANCOMYCIN RESISTANT ENTEROCOCCUS ... Complete 08/16/20 11:56 Nasal Nares MRSA Culture - Final NO METHICILLIN RESISTANT STAPH AUREUS... Complete 08/16/20 11:11 Nasal Nares - Final Complete 08/16/20 11:11 Nasal Nares - Final Complete 08/16/20 10:25 Nasopharynx SARS-CoV-2 RdRp Gene Assay - Final Complete 08/16/20 09:25 Blood Blood Culture - Preliminary NO GROWTH AFTER 24 HOURS Resulted 08/16/20 09:05 Blood Blood Culture - Preliminary NO GROWTH AFTER 24 HOURS Resulted 08/16/20 00:00 Urine,Clean Catch Urine Culture - Preliminary NO GROWTH AFTER 24 HOURS Resulted Laboratory Tests 08/17/20 17:57: POC Whole Blood Glucose 126H 08/18/20 08:15: White Blood Count 11.0H, Red Blood Count 3.32L, Hemoglobin 11.7L, Hematocrit 33.0L, Mean Corpuscular Volume 100H, Mean Corpuscular Hemoglobin 35.2H, Mean Cor puscular Hemoglobin Concent 35.3, Red Cell Distribution Width 12.0, Platelet Count 52L, Mean Platelet Volume 14.8H, Neutrophils (%) (Auto) , Lymphocytes (%) (Auto) , Monocytes (%) (Auto) , Eosinophils (%) (Auto) , Basophils (%) (Auto) , Differential Total Cells Counted 100, Neutrophils % (Manual) 77H, Lymphocytes % (Manual) 6L, Monocytes % (Manual) 10, Eosinophils % (Manual) 2, Basophils % (Manual) 0, Band Neutrophils 5, Nucleated Red Blood Cells 1, Platelet Estimate DecreasedL, Platelet Morphology Normal, Macrocytosis 1+, Sodium Level 134L, Potassium Level 3.4L, Chloride Level 102, Carbon Dioxide Level 24, Anion Gap 9, Blood Urea Nitrogen 10, Creatinine 0.6, Estimat Glomerular Filtration Rate > 60, Glucose Level 94, Hemoglobin A1c 6.7H, Uric Acid 2.7, Calcium Level 7.4L, Phosphorus Level 1.9L, Magnesium Level 2.3, Iron Level 119, Total Iron Binding Capacity 91L, Percent Iron Saturation 131H, Unsaturated Iron Binding -28L, Ferritin 1315H, Total Bilirubin 5.5H, Direct Bilirubin 4.0H, Gamma Glutamyl Transpeptidase 745H, Aspartate Amino Transf (AST/SGOT) 106H, Alanine Aminotransferase (ALT/SGPT) 46, Alkaline Phosphatase 98, Ammonia 23, C-Reactive Protein, Quantitative 2.5H, Pro-B-Type Natriuretic Peptide 358H, Total Protein 6.5, Albumin 2.1L, Globulin 4.4, Albumin/Globulin Ratio 0.5L, Triglycerides Level 114, Cholesterol Level < 50, LDL Cholesterol 26, HDL Cholesterol 7L, Cholesterol/HDL Ratio 7.1H, Vitamin B12 Level > 2000H, Folate 17.4, Thyroid Stimulating Hormone (TSH) 6.296H Current Medications Medications (Trade) Dose Ordered Sig/Shaun Route PRN Reason Start Time Stop Time Status Last Admin Dose Admin Acetaminophen (Tylenol) 650 mg Q4H PRN ORAL Temp >100.5 08/16/20 17:00 09/15/20 16:59 08/18/20 08:47 Ceftriaxone Sodium 1 gm/ Dextrose 55 ml @ 110 mls/hr Q24H IVPB 08/17/20 10:00 08/24/20 09:59 08/18/20 10:38 Chlordiazepoxide (Librium) 25 mg Q6H PRN ORAL For Anxiety 08/18/20 11:45 08/23/20 11:29 Dextrose (Dextrose 50%) 25 ml Q30M PRN IV Hypoglycemia 08/16/20 11:30 11/14/20 11:29 Dextrose (Dextrose 50%) 50 ml Q30M PRN IV Hypoglycemia 08/16/20 11:30 11/14/20 11:29 Dextrose/ Electrolytes 1,000 ml @ 75 mls/hr [id number] IV 08/18/20 15:00 09/17/20 14:59 Heparin Sodium (Porcine) (Heparin 5000 units/ml) 5,000 units EVERY 12 HOURS SUBQ 08/16/20 21:00 09/30/20 20:59 Lorazepam (Ativan 2mg/ml 1ml) 1 mg Q4H PRN IV agitation 08/16/20 11:30 08/23/20 11:29 Lorazepam (Ativan 2mg/ml 1ml) 1 mg Q4H PRN IV tachy HR>100 08/16/20 12:04 08/23/20 12:03 Ondansetron HCl (Zofran) 4 mg Q6H PRN IVP Nausea & Vomiting 08/16/20 11:30 09/15/20 11:29 Polyethylene Glycol (Miralax) 17 gm HSPRN PRN ORAL Constipation 08/16/20 11:30 09/15/20 11:29 Potassium Phosphate 21 mm/ Sodium Chloride 282 ml @ 47 mls/hr ONCE ONCE IV 08/18/20 15:00 08/18/20 20:59 Thiamine HCl 100 mg/Dextrose 56 ml @ 112 mls/hr Q24H IVPB 08/16/20 15:00 09/15/20 14:59 08/17/20 15:17 Tobramycin Sulfate (Tobramycin Opth Soln) 1 drop Q6HR BOTH EYES 08/16/20 18:00 08/23/20 17:59 08/18/20 12:00 Vancomycin HCl (Vanco pharmacy to dose) 1 ea DAILY PRN MISC Per rx protocol 08/17/20 16:15 09/16/20 16:14 Vancomycin HCl 1 gm/Sodium Chloride 275 ml @ 183.708 mls/hr Q12HR@0600,1800 IVPB 08/17/20 18:00 08/22/20 17:59 08/18/20 05:58 Zolpidem Tartrate (Ambien) 5 mg HSPRN PRN ORAL Insomnia 08/16/20 11:30 08/23/20 11:29 Assessment/Plan Problems: (1) Alcohol withdrawal (2) Fever (3) Conjunctivitis Assessment/Plan eating well feeling better iv fluids banana bag Librium and ativan prn all cultures negative An culture b/o leukocytosis Ty Alexandre MD Aug 18, 2020 15:02
[2020-08-18] MEDS: Thiamine 100mg in D5W 55ml IVPB SCH (15:23)
[2020-08-18 16:00] VITALS: BP 111/57
--- NOTE | 2020-08-18 19:16 | NUR ---
NURSE HAND-OFF: Important Events on Shift:[Transfer] Patient Status: [stable] Diet: [CCHO] Pending Orders: [] Pending Results/Labs:[] Pending MD notification:[] Latest Vital Signs: Temperature 99.0 , Pulse 72 , B/P 111 /57 , Respiratory Rate 18 , O2 SAT 98 , Room Air, O2 Flow Rate . Vital Sign Comment: [stable] Latest Acosta Fall Score: 45 Fall Risk: High Risk Safety Measures: Call light Within Reach, Bed Alarm Zone 2, Side Rails Side Rails x3, Bed position Low and Locked. Fall Precautions: Yellow Socks Yellow Gown Patient Fall Education Report given to [Fransico,RN].
--- NOTE | 2020-08-18 19:20 | NUR ---
NURSE NOTES: Received report from MIGUEL Coley. Patient asleep.
[2020-08-18 20:00] VITALS: BP 97/59
--- NOTE | 2020-08-18 21:49 | NUR ---
NURSE NOTES: Patient lethargic and sleeping. Able to arouse by name. Patient primarily speaks Divehi and little bit of Polish. Breathing unlabored on room air without distress or discomfort. Denies pain at this time. IV noted on right antecubital intact and patent. Condom cath placed per patient preference due to physical weakness to ambulate to the restroom. Bed placed at the lowest with HOB elevated. Bed alarm, brake, and siderails on for patient safety. Call light placed within reach. Will continue to monitor.
[2020-08-19] VITALS (7 sets, daily range): BP systolic 99–125; BP diastolic 60–73
--- NOTE | 2020-08-19 02:33 | NUR ---
NURSE NOTES: Confirmed order for vancomycin trough scheduled at 0500 with laboratory.
[2020-08-19] MEDS: Tobramycin Op Soln 0.3% 5ml BOTH EYES SCH ×4 (05:14→23:26)
[2020-08-19 05:47] LABS: HEMATOCRIT 32.3 % (42.0-52.0); HEMOGLOBIN 11.4 G/DL (14.2-18.0); MEAN CORPUSCULAR VOLUME 100 FL (80-99); PLATELET COUNT 63 K/UL (150-450); RED BLOOD COUNT 3.24 M/UL (4.70-6.10); WHITE BLOOD COUNT 10.2 K/UL (4.8-10.8)
[2020-08-19 06:16] LABS: ALANINE AMINOTRANSFERASE 49 U/L (12-78); ALBUMIN 2.1 G/DL (3.4-5.0); ALBUMIN/GLOBULIN RATIO 0.5 (1.0-2.7); ALKALINE PHOSPHATASE 110 U/L (46-116); ANION GAP 4 mmol/L (5-15); ASPARTATE AMINO TRANSFERASE 103 U/L (15-37); BILIRUBIN,TOTAL 4.3 MG/DL (0.2-1.0); BLOOD UREA NITROGEN 7 mg/dL (7-18); CALCIUM 7.3 MG/DL (8.5-10.1); CARBON DIOXIDE 27 MMOL/L (21-32); CHLORIDE 101 MMOL/L (98-107); CHOLESTEROL < 50 MG/DL (< 200); CREATININE 0.7 MG/DL (0.55-1.30); HDL CHOLESTEROL 7 MG/DL (40-60); POTASSIUM 3.5 MMOL/L (3.5-5.1); SODIUM 131 MMOL/L (136-145); TRIGLYCERIDES 96 MG/DL (30-150)
--- NOTE | 2020-08-19 06:39 | NUR ---
NURSE NOTES: Patient's total output is 50 mls. Bladder scan showed 71 mls. No bladder distention noted during the assessment. Patient denies discomfort or pain. Patient states that he does not feel like urinating at this time. Patient's morning lab BUN is 7 and creatinine is 0.7. Reached Dr. Otero regarding the patient's condition. Left a message. Awaiting for a call back for any new orders. Will continue to monitor.
[2020-08-19 06:43] LABS: BILIRUBIN,DIRECT 3.4 MG/DL (0.0-0.3)
--- NOTE | 2020-08-19 06:50 | NUR ---
NURSE NOTES: Spoke with Nadia pharmacist from [facility] [place] regarding patient's vancomycin trough level. Given order to keep the 0600 dosage as is and adjustment will be made for future doses. Will carry out the order as given by the pharmacist.
[2020-08-19] MEDS: Vancomycin 1 GM in NS 275 ML IVPB SCH (06:56)
--- NOTE | 2020-08-19 07:29 | NUR ---
NURSE HAND-OFF: Important Events on Shift:Urine output measuring 50mls and bladder scan showed 71mls of residual til 0600. Informed receiving RN. When rounding with receiving RN after report, patient urinated 700 mls urine through condom cath. Patient Status:Stable Diet:CCHO (Medium) Pending Orders:None Pending Results/Labs:None Pending MD notification:Reached about the urine output and low sodium level prior to patient urinating 700mls. Left a message. Awaiting for any new orders for patient's condition. Urine output event resolved. Latest Vital Signs: Temperature 97.4 , Pulse 64 , B/P 99 /62 , Respiratory Rate 21 , O2 SAT 95 , Room Air, O2 Flow Rate . Vital Sign Comment: Stable. One episode of fever in the beginning of the shift. Provided pharamacological and nonpharamacological management. Currently afebrile and stable. Latest Acosta Fall Score: 45 Fall Risk: High Risk Safety Measures: Call light Within Reach, Bed Alarm Zone 2, Side Rails Side Rails x3, Bed position Low and Locked. Fall Precautions: Yellow Socks Yellow Gown Patient Fall Education Report given to MIGUEL Coley.
--- NOTE | 2020-08-19 07:34 | NUR ---
NURSE NOTES: Received report from Minserasmo, RN. Pt awake in bed on RA, alert and oriented, Palestinian speaking. No respiratory distress noted. Denies any pain at this time. Endorsed by night nurse urine output 50cc. During round, 700cc urine output , dark orange in condom cath urine bag. IV intact and patent. Call light within reach. Will continue to monitor.
[2020-08-19] MEDS: Heparin 5000 units/ml inj SUBQ SCH ×2 (08:17→20:21)
[2020-08-19] MEDS: cefTRIAXone 1 GM in D5W 55 ML IVPB SCH (09:09)
[2020-08-19] MEDS ORDERED: Potassium Phosphate 20 MM in NS 275 ML IV ONE (11:00)
--- NOTE | 2020-08-19 11:58 | Nephrology Progress Note ---
Assessment/Plan Problem List: (1) Electrolyte imbalance (2) Dehydration (3) Alcohol withdrawal (4) Leukocytosis (5) Fever Assessment Abnormal electrolytes Alcohol withdrawal Alcoholic liver disease Fever, sepsis Plan IV supplements of electrolyte deficits Thiamine Hydration Per orders Subjective ROS Limited/Unobtainable: No Constitutional: Reports: malaise Objective Objective Last 24 Hour Vital Signs Date Time Temp Pulse Resp B/P (MAP) Pulse Ox O2 Delivery O2 Flow Rate FiO2 08/19/20 09:00 Room Air 08/19/20 08:00 98.4 66 14 105/60 (75) 99 08/19/20 04:00 97.4 64 21 99/62 (74) 95 08/19/20 00:00 99.1 77 21 99/61 (74) 96 08/18/20 21:00 Room Air 08/18/20 20:46 99.4 08/18/20 20:00 101.1 81 21 97/59 (72) 96 08/18/20 16:00 99.0 72 18 111/57 (75) 98 08/18/20 12:00 98.6 77 18 93/58 (70) 98 Intake and Output 08/18/20 08/19/20 19:00 07:00 Intake Total 740 ml 1866.292 ml Output Total 700 ml 50 ml Balance 40 ml 1816.292 ml Intake Oral 740 ml 800 ml IV Total 1066.292 ml Output Urine Total 700 ml 50 ml # Voids 1 # Bowel Movements 1 Laboratory Tests 08/19/20 04:50: White Blood Count 10.2, Red Blood Count 3.24L, Hemoglobin 11.4L, Hematocrit 32.3 L, Mean Corpuscular Volume 100H, Mean Corpuscular Hemoglobin 35.2H, Mean Cor puscular Hemoglobin Concent 35.3, Red Cell Distribution Width 12.0, Platelet Count 63L, Mean Platelet Volume 11.5H, Neutrophils (%) (Auto) , Lymphocytes (%) (Auto) , Monocytes (%) (Auto) , Eosinophils (%) (Auto) , Basophils (%) (Auto) , Neutrophils % (Manual) [Pending], Lymphocytes % (Manual) [Pending], Platelet Estimate [Pending], Platelet Morphology [Pending], Sodium Level 131L, Potassium Level 3.5, Chloride Level 101, Carbon Dioxide Level 27, Anion Gap 4L, Blood Urea Nitrogen 7, Creatinine 0.7, Estimat Glomerular Filtration Rate > 60, Glucose Level 152H, Uric Acid 2.4L, Calcium Level 7.3L, Phosphorus Level 2.0L, Magnesium Level 1.9, Total Bilirubin 4.3H, Direct Bilirubin 3.4H, Gamma Glutamyl Transpeptidase 689H, Aspartate Amino Transf (AST/SGOT) 103H, Alanine Aminotransferase (ALT/SGPT) 49, Alkaline Phosphatase 110, Ammonia 19, C-Reactive Protein, Quantitative 2.6H, Pro-B-Type Natriuretic Peptide 217H, Total Protein 6.5, Albumin 2.1L, Globulin 4.4, Albumin/Globulin Ratio 0.5L, Triglycerides Level 96, Cholesterol Level < 50, LDL Cholesterol 28, HDL Cholesterol 7L, Cholesterol/HDL Ratio 7.1H, Vancomycin Level Trough 6.3 Height (Feet): 5 Height (Inches): 6.00 Weight (Pounds): 150 General Appearance: no apparent distress Yves Otero MD Aug 19, 2020 11:58
--- NOTE | 2020-08-19 13:05 | Pulmonology Progress Note ---
Subjective ROS Limited/Unobtainable: No Constitutional: Reports: no symptoms HEENT: Repors: no symptoms Respiratory: Reports: no symptoms Allergies: Coded Allergies: No Known Allergies (Unverified , 08/16/20) Objective Last 24 Hour Vital Signs Date Time Temp Pulse Resp B/P (MAP) Pulse Ox O2 Delivery O2 Flow Rate FiO2 08/19/20 12:00 98.5 68 14 125/73 (90) 98 08/19/20 09:00 Room Air 08/19/20 08:00 98.4 66 14 105/60 (75) 99 08/19/20 04:00 97.4 64 21 99/62 (74) 95 08/19/20 00:00 99.1 77 21 99/61 (74) 96 08/18/20 21:00 Room Air 08/18/20 20:46 99.4 08/18/20 20:00 101.1 81 21 97/59 (72) 96 08/18/20 16:00 99.0 72 18 111/57 (75) 98 Intake and Output 08/18/20 08/19/20 19:00 07:00 Intake Total 740 ml 1866.292 ml Output Total 700 ml 50 ml Balance 40 ml 1816.292 ml Intake Oral 740 ml 800 ml IV Total 1066.292 ml Output Urine Total 700 ml 50 ml # Voids 1 # Bowel Movements 1 General Appearance: WD/WN Respiratory: chest wall non-tender, lungs clear Cardiovascular: normal peripheral pulses, regularly irregular Abdomen: normal bowel sounds, non distended Genitourinary: normal external genitalia Skin: no lesions Microbiology Date/Time Source Procedure Growth Status 08/17/20 06:00 Urine,Clean Catch Urine Culture - Preliminary NO GROWTH AFTER 24 HOURS Resulted Laboratory Tests 08/19/20 04:50: White Blood Count 10.2, Red Blood Count 3.24L, Hemoglobin 11.4L, Hematocrit 32.3L, Mean Corpuscular Volume 100H, Mean Corpuscular Hemoglobin 35.2H, Mean Corpuscular Hemoglobin Concent 35.3, Red Cell Distribution Width 12.0, Platelet Count 63L, Mean Platelet Volume 11.5H, Neutrophils (%) (Auto) , Lymphocytes (%) (Auto) , Monocytes (%) (Auto) , Eosinophils (%) (Auto) , Basophils (%) (Auto) , Neutrophils % (Manual) [Pending], Lymphocytes % (Manual) [Pending], Platelet Estimate [Pending], Platelet Morphology [Pending], Sodium Level 131L, Potassium Level 3.5, Chloride Level 101, Carbon Dioxide Level 27, Anion Gap 4L, Blood Urea Nitrogen 7, Creatinine 0.7, Estimat Glomerular Filtration Rate > 60, Glucose Level 152H, Uric Acid 2.4L, Calcium Level 7.3L, Phosphorus Level 2.0L, Magnesium Level 1.9, Total Bilirubin 4.3H, Direct Bilirubin 3.4H, Gamma Glutamyl Transpeptidase 689H, Aspartate Amino Transf (AST/SGOT) 103H, Alanine Aminotransferase (ALT/SGPT) 49, Alkaline Phosphatase 110, Ammonia 19, C-Reactive Protein, Quantitative 2.6H, Pro-B-Type Natriuretic Peptide 217H, Total Protein 6.5, Albumin 2.1L, Globulin 4.4, Albumin/Globulin Ratio 0.5L, Triglycerides Level 96, Cholesterol Level < 50, LDL Cholesterol 28, HDL Cholesterol 7L, Cholesterol/HDL Ratio 7.1H, Vancomycin Level Trough 6.3 Current Medications Medications (Trade) Dose Ordered Sig/Shaun Route PRN Reason Start Time Stop Time Status Last Admin Dose Admin Acetaminophen (Tylenol) 650 mg Q4H PRN ORAL Temp >100.5 08/16/20 17:00 09/15/20 16:59 08/18/20 19:55 Ceftriaxone Sodium 1 gm/ Dextrose 55 ml @ 110 mls/hr Q24H IVPB 08/17/20 10:00 08/24/20 09:59 08/19/20 09:09 Chlordiazepoxide (Librium) 25 mg Q6H PRN ORAL For Anxiety 08/18/20 11:45 08/23/20 11:29 Dextrose (Dextrose 50%) 25 ml Q30M PRN IV Hypoglycemia 08/16/20 11:30 11/14/20 11:29 Dextrose (Dextrose 50%) 50 ml Q30M PRN IV Hypoglycemia 08/16/20 11:30 11/14/20 11:29 Heparin Sodium (Porcine) (Heparin 5000 units/ml) 5,000 units EVERY 12 HOURS SUBQ 08/16/20 21:00 09/30/20 20:59 Lorazepam (Ativan 2mg/ml 1ml) 1 mg Q4H PRN IV agitation 08/16/20 11:30 08/23/20 11:29 Lorazepam (Ativan 2mg/ml 1ml) 1 mg Q4H PRN IV tachy HR>100 08/16/20 12:04 08/23/20 12:03 Ondansetron HCl (Zofran) 4 mg Q6H PRN IVP Nausea & Vomiting 08/16/20 11:30 09/15/20 11:29 Polyethylene Glycol (Miralax) 17 gm HSPRN PRN ORAL Constipation 08/16/20 11:30 09/15/20 11:29 Potassium Phosphate 20 mm/ Sodium Chloride 281.6667 ml @ 46.944 m... ONCE ONCE IV 08/19/20 11:00 08/19/20 16:59 08/19/20 11:09 Thiamine HCl 100 mg/Dextrose 56 ml @ 112 mls/hr Q24H IVPB 08/16/20 15:00 09/15/20 14:59 08/18/20 15:23 Tobramycin Sulfate (Tobramycin Opth Soln) 1 drop Q6HR BOTH EYES 08/16/20 18:00 08/23/20 17:59 08/19/20 12:04 Vancomycin HCl (Vanco pharmacy to dose) 1 ea DAILY PRN MISC Per rx protocol 08/17/20 16:15 09/16/20 16:14 Vancomycin/Sodium Chloride 275 ml @ 183.333 mls/hr Q8HR IVPB 08/19/20 14:00 08/24/20 13:59 Zolpidem Tartrate (Ambien) 5 mg HSPRN PRN ORAL Insomnia 08/16/20 11:30 08/23/20 11:29 Assessment/Plan Problems: (1) Alcohol withdrawal (2) Fever (3) Conjunctivitis Assessment/Plan afebrile wbc within normal level eating well feeling better iv fluids banana bag Librium and ativan prn all cultures negative An culture b/o leukocytosis Ty Alexandre MD Aug 19, 2020 13:05
[2020-08-19] MEDS: Vancomycin 1.25gm/NS Premix IVPB SCH ×2 (14:43→21:28)
[2020-08-19] MEDS: Thiamine 100mg in D5W 55ml IVPB SCH (15:00)
--- NOTE | 2020-08-19 16:00 | NUR ---
NURSE NOTES: Spoke to pt's daughter, Nicolette. Informed that daughter will take pt to her house when pt is discharged. Dr. Trevino aware. Daughter wanted to be notified when discharge order given. Will endorsed to the next shift.
--- NOTE | 2020-08-19 16:02 | NUR ---
PT Note PT eval completed, treatment initiated. Patient's daughter was present all throughout eval/tx. Patient has muscle weakness with poor standing/sitting balance, requiring extensive assist in mobility and gait. Patient needs physical therapy to increase his muscle strength and balance to improve his safety in mobility and gait. Addendum: 08/19/20 at 1603 by MARCELINA NAM PT Amended: Links added.
--- NOTE | 2020-08-19 17:34 | Internal Med Progress Note ---
Subjective Date of Service: Aug 19, 2020 Physician Name BelindaMarquez Attending Physician Gentry Marino MD Current Medications Medications (Trade) Dose Ordered Sig/Shaun Route PRN Reason Start Time Stop Time Status Last Admin Dose Admin Acetaminophen (Tylenol) 650 mg Q4H PRN ORAL Temp >100.5 08/16/20 17:00 09/15/20 16:59 08/18/20 19:55 Ceftriaxone Sodium 1 gm/ Dextrose 55 ml @ 110 mls/hr Q24H IVPB 08/17/20 10:00 08/24/20 09:59 08/19/20 09:09 Chlordiazepoxide (Librium) 25 mg Q6H PRN ORAL For Anxiety 08/18/20 11:45 08/23/20 11:29 Dextrose (Dextrose 50%) 25 ml Q30M PRN IV Hypoglycemia 08/16/20 11:30 11/14/20 11:29 Dextrose (Dextrose 50%) 50 ml Q30M PRN IV Hypoglycemia 08/16/20 11:30 11/14/20 11:29 Heparin Sodium (Porcine) (Heparin 5000 units/ml) 5,000 units EVERY 12 HOURS SUBQ 08/16/20 21:00 09/30/20 20:59 Lorazepam (Ativan 2mg/ml 1ml) 1 mg Q4H PRN IV agitation 08/16/20 11:30 08/23/20 11:29 Lorazepam (Ativan 2mg/ml 1ml) 1 mg Q4H PRN IV tachy HR>100 08/16/20 12:04 08/23/20 12:03 Ondansetron HCl (Zofran) 4 mg Q6H PRN IVP Nausea & Vomiting 08/16/20 11:30 09/15/20 11:29 Polyethylene Glycol (Miralax) 17 gm HSPRN PRN ORAL Constipation 08/16/20 11:30 09/15/20 11:29 Thiamine HCl 100 mg/Dextrose 56 ml @ 112 mls/hr Q24H IVPB 08/16/20 15:00 09/15/20 14:59 08/19/20 15:00 Tobramycin Sulfate (Tobramycin Opth Soln) 1 drop Q6HR BOTH EYES 08/16/20 18:00 08/23/20 17:59 08/19/20 12:04 Vancomycin HCl (Vanco pharmacy to dose) 1 ea DAILY PRN MISC Per rx protocol 08/17/20 16:15 09/16/20 16:14 Vancomycin/Sodium Chloride 275 ml @ 183.333 mls/hr Q8HR IVPB 08/19/20 14:00 08/24/20 13:59 08/19/20 14:43 Zolpidem Tartrate (Ambien) 5 mg HSPRN PRN ORAL Insomnia 08/16/20 11:30 08/23/20 11:29 Allergies: Coded Allergies: No Known Allergies (Unverified , 08/16/20) ROS Limited/Unobtainable: No Constitutional: Reports: no symptoms HEENT: Reports: no symptoms Cardiovascular: Reports: no symptoms Respiratory: Reports: no symptoms Gastrointestinal/Abdominal: Reports: no symptoms Genitourinary: Reports: no symptoms Neurologic/Psychiatric: Reports: no symptoms Subjective 54 YO M admitted with alcohol intoxication. Now alcohol withdrawal and conjun ctivitis. Cover for Int Johnathon-DR Marino Objective Last Vital Signs Date Time Temp Pulse Resp B/P (MAP) Pulse Ox O2 Delivery O2 Flow Rate FiO2 08/19/20 16:00 98.6 72 16 117/69 (85) 98 08/19/20 09:00 Room Air Laboratory Tests Test 08/19/20 04:50 White Blood Count 10.2 K/UL (4.8-10.8) Red Blood Count 3.24 M/UL (4.70-6.10) L Hemoglobin 11.4 G/DL (14.2-18.0) L Hematocrit 32.3 % (42.0-52.0) L Mean Corpuscular Volume 100 FL (80-99) H Mean Corpuscular Hemoglobin 35.2 PG (27.0-31.0) H Mean Corpuscular Hemoglobin Concent 35.3 G/DL (32.0-36.0) Red Cell Distribution Width 12.0 % (11.6-14.8) Platelet Count 63 K/UL (150-450) L Mean Platelet Volume 11.5 FL (6.5-10.1) H Neutrophils (%) (Auto) % (45.0-75.0) Lymphocytes (%) (Auto) % (20.0-45.0) Monocytes (%) (Auto) % (1.0-10.0) Eosinophils (%) (Auto) % (0.0-3.0) Basophils (%) (Auto) % (0.0-2.0) Differential Total Cells Counted 100 Neutrophils % (Manual) 69 % (45-75) Lymphocytes % (Manual) 10 % (20-45) L Monocytes % (Manual) 13 % (1-10) H Eosinophils % (Manual) 6 % (0-3) H Basophils % (Manual) 2 % (0-2) Band Neutrophils 0 % (0-8) Platelet Estimate Decreased L Platelet Morphology Normal Hypochromasia 1+ Anisocytosis 1+ Sodium Level 131 MMOL/L (136-145) L Potassium Level 3.5 MMOL/L (3.5-5.1) Chloride Level 101 MMOL/L (98-107) Carbon Dioxide Level 27 MMOL/L (21-32) Anion Gap 4 mmol/L (5-15) L Blood Urea Nitrogen 7 mg/dL (7-18) Creatinine 0.7 MG/DL (0.55-1.30) Estimat Glomerular Filtration Rate > 60 mL/min (>60) Glucose Level 152 MG/DL (74-106) H Uric Acid 2.4 MG/DL (2.6-7.2) L Calcium Level 7.3 MG/DL (8.5-10.1) L Phosphorus Level 2.0 MG/DL (2.5-4.9) L Magnesium Level 1.9 MG/DL (1.8-2.4) Total Bilirubin 4.3 MG/DL (0.2-1.0) H Direct Bilirubin 3.4 MG/DL (0.0-0.3) H Gamma Glutamyl Transpeptidase 689 U/L (5-85) H Aspartate Amino Transf (AST/SGOT) 103 U/L (15-37) H Alanine Aminotransferase (ALT/SGPT) 49 U/L (12-78) Alkaline Phosphatase 110 U/L (46-116) Ammonia 19 umol/L (11-32) C-Reactive Protein, Quantitative 2.6 mg/dL (0.00-0.90) H Pro-B-Type Natriuretic Peptide 217 pg/mL (0-125) H Total Protein 6.5 G/DL (6.4-8.2) Albumin 2.1 G/DL (3.4-5.0) L Globulin 4.4 g/dL Albumin/Globulin Ratio 0.5 (1.0-2.7) L Triglycerides Level 96 MG/DL (30-150) Cholesterol Level < 50 MG/DL (< 200) LDL Cholesterol 28 mg/dL (<100) HDL Cholesterol 7 MG/DL (40-60) L Cholesterol/HDL Ratio 7.1 (3.3-4.4) H Vancomycin Level Trough 6.3 ug/mL (5.0-12.0) Microbiology Date/Time Source Procedure Growth Status 08/17/20 06:00 Urine,Clean Catch Urine Culture - Preliminary NO GROWTH AFTER 24 HOURS Resulted Intake and Output 08/18/20 08/19/20 19:00 07:00 Intake Total 740 ml 1866.292 ml Output Total 700 ml 50 ml Balance 40 ml 1816.292 ml Intake Oral 740 ml 800 ml IV Total 1066.292 ml Output Urine Total 700 ml 50 ml # Voids 1 # Bowel Movements 1 Objective PHYSICAL EXAMINATION: GENERAL: The patient is well-developed and well-nourished male, who is somnolent but arousable. HEENT: Eyes with crusty discharge bilaterally and conjunctival erythema. NECK: Supple without lymphadenopathy. CHEST: Lungs are clear to auscultation bilaterally without wheezes or rales. CARDIOVASCULAR: Regular rhythm and rate. S1, S2 normal without murmurs, rubs, or gallops. ABDOMEN: Soft, nontender, nondistended. Positive bowel sounds. No evidence of hepatosplenomegaly. Currently, no rebound or guarding noted. EXTREMITIES: Negative for clubbing, cyanosis, or edema. RECTAL/GENITAL: Not performed. NEUROLOGICAL: Cranial nerves II through XII are grossly intact without focal deficits. Motor strength is 5/5 bilaterally. Deep tendon reflexes are 2+ plantar. Assessment/Plan Assessment/Plan ASSESSMENT: This is a 54-year-old male: 1. Alcohol abuse. 2. Acute alcohol withdrawal. 3. Bilateral conjunctivitis. 4. Elevated liver function tests. 5. Low grade fever TREATMENT: 1. Alcohol dependence/withdrawal. The patient has been placed on Librium and Ativan as needed for alcohol withdrawal symptoms. Gabapentin has been added for withdrawal seizure precaution. 2. Conjunctivitis. The patient has been started on tobramycin eye drops every 6 hours. 3. Elevated liver function tests is probably secondary to chronic alcoholism. 4. Urine and blood culture = no growth; Continue vanco and ceftriaxone per ID=Dr Rice. Marquez Trevino MD Aug 19, 2020 17:34
--- NOTE | 2020-08-19 19:21 | NUR ---
NURSE HAND-OFF: Important Events on Shift:[PT eval. DC IVF, IV ATB given] Patient Status: [stable] Diet: [CCHO] Pending Orders: [] Pending Results/Labs:[] Pending MD notification:[] Latest Vital Signs: Temperature 98.6 , Pulse 72 , B/P 117 /69 , Respiratory Rate 16 , O2 SAT 98 , Room Air, O2 Flow Rate . Vital Sign Comment: [stable] Latest Acosta Fall Score: 45 Fall Risk: High Risk Safety Measures: Call light Within Reach, Bed Alarm Zone 2, Side Rails Side Rails x3, Bed position Low and Locked. Fall Precautions: Yellow Socks Yellow Gown Patient Fall Education Report given to [MIGUEL [place]].
[2020-08-20 04:00] VITALS: BP 111/69
[2020-08-20] MEDS: Vancomycin 1.25gm/NS Premix IVPB SCH (05:19)
[2020-08-20] MEDS: Tobramycin Op Soln 0.3% 5ml BOTH EYES SCH ×4 (05:20→23:00)
--- NOTE | 2020-08-20 05:38 | NUR ---
NURSE HAND-OFF: Important Events on Shift: No significant changes noted this shift. No incidents of falls, injuries, trauma, new skin issues or ETOH withdrawal symptoms reported. No complaints of pain, SOB or any distress. patient is withdrawn but cooperative. condom cath on; tea-colored urine noted but with good UOP. all due meds given; sleeping at this time; stable. will continue to monitor. Diet: see orderschart Pending Orders: AML including vanco trough today at 1300 Pending Results/Labs: as stated above Pending MD notification: nne Latest Vital Signs: Temperature 98.6 , Pulse 68 , B/P 111 /69 , Respiratory Rate 16 , O2 SAT 99 , Room Air, O2 Flow Rate . Vital Sign Comment: ENL Latest Acosta Fall Score: 45 Fall Risk: High Risk Safety Measures: Call light Within Reach, Bed Alarm Zone 2, Side Rails Side Rails x3, Bed position Low and Locked. Fall Precautions: hourly rounding, frequent reorientation Yellow Socks:yes Yellow Gown:yes Patient Fall Education;Yes Report given to: Addendum: 08/20/20 at 0640 by MIKE MORALES additional nurse's notes: patient with very poor appetite. less than 25% consumed; encouraged to eat and increase fluid intake; needs constant reinforcement.
[2020-08-20 06:10] LABS: HEMATOCRIT 31.4 % (42.0-52.0); HEMOGLOBIN 11.3 G/DL (14.2-18.0); MEAN CORPUSCULAR VOLUME 99 FL (80-99); PLATELET COUNT 87 K/UL (150-450); RED BLOOD COUNT 3.16 M/UL (4.70-6.10); RED CELL DISTRIBUTION WIDTH 11.7 % (11.6-14.8); WHITE BLOOD COUNT 11.5 K/UL (4.8-10.8)
[2020-08-20 06:31] LABS: ALBUMIN 1.9 G/DL (3.4-5.0); ALBUMIN/GLOBULIN RATIO 0.4 (1.0-2.7); ALKALINE PHOSPHATASE 113 U/L (46-116); ANION GAP 7 mmol/L (5-15); ASPARTATE AMINO TRANSFERASE 107 U/L (15-37); BILIRUBIN,TOTAL 4.1 MG/DL (0.2-1.0); BLOOD UREA NITROGEN 5 mg/dL (7-18); CALCIUM 7.4 MG/DL (8.5-10.1); CARBON DIOXIDE 24 MMOL/L (21-32); CHLORIDE 103 MMOL/L (98-107); CREATININE 0.6 MG/DL (0.55-1.30); PHOSPHORUS 2.3 MG/DL (2.5-4.9); POTASSIUM 3.2 MMOL/L (3.5-5.1); SODIUM 134 MMOL/L (136-145)
[2020-08-20 06:34] LABS: BILIRUBIN,DIRECT 2.9 MG/DL (0.0-0.3)
--- NOTE | 2020-08-20 07:30 | NUR ---
NURSE NOTES: Patient is in bed awake and able to verbalize needs. Stable. Denies pain or SOB. Breathing is even and unlabored. No s/s withdrawal noted at this time. All safety measures provided. Patient is in bed in locked and lowest position with call light within reach. All needs met at this time. Will continue to monitor.
[2020-08-20 08:00] VITALS: BP 135/79
[2020-08-20] MEDS: Heparin 5000 units/ml inj SUBQ SCH ×2 (08:48→20:00)
[2020-08-20] MEDS: cefTRIAXone 1 GM in D5W 55 ML IVPB SCH (09:07)
--- NOTE | 2020-08-20 10:13 | NUR ---
NURSE NOTES: Patient is sitting up in chair, call light within reach. All safety measures provided.
[2020-08-20 10:15] LABS: ALANINE AMINOTRANSFERASE 49 U/L (12-78)
--- NOTE | 2020-08-20 10:32 | Nephrology Progress Note ---
Assessment/Plan Problem List: (1) Electrolyte imbalance (2) Dehydration (3) Alcohol withdrawal (4) Leukocytosis (5) Fever Assessment Abnormal electrolytes Alcohol withdrawal Alcoholic liver disease Fever, sepsis Plan August 20: Labs reviewed. Electrolyte abnormalities addressed. Continue as is. IV supplements of electrolyte deficits Thiamine Hydration Per orders Subjective ROS Limited/Unobtainable: No Constitutional: Reports: malaise Objective Objective Last 24 Hour Vital Signs Date Time Temp Pulse Resp B/P (MAP) Pulse Ox O2 Delivery O2 Flow Rate FiO2 08/20/20 08:35 Room Air 08/20/20 08:00 97.6 62 16 135/79 (97) 99 08/20/20 04:00 98.6 68 16 111/69 (83) 99 08/19/20 23:25 98.4 69 17 121/72 (88) 98 08/19/20 20:24 Room Air 08/19/20 19:39 99.4 73 18 114/65 (81) 99 08/19/20 16:00 98.6 72 16 117/69 (85) 98 08/19/20 12:00 98.5 68 14 125/73 (90) 98 Intake and Output 08/19/20 08/20/20 19:00 07:00 Intake Total 800 ml 670.00 ml Output Total 1300 ml 1000 ml Balance -500 ml -330.00 ml Intake Oral 800 ml 120 ml IV Total 550.00 ml Output Urine Total 1300 ml 1000 ml Laboratory Tests 08/20/20 04:50: White Blood Count 11.5H, Red Blood Count 3.16L, Hemoglobin 11.3L, Hematocrit 31.4L, Mean Corpuscular Volume 99, Mean Corpuscular Hemoglobin 35.7H, Mean C orpuscular Hemoglobin Concent 36.0, Red Cell Distribution Width 11.7, Platelet Count 87L, Mean Platelet Volume 12.9H, Neutrophils (%) (Auto) , Lymphocytes (%) (Auto) , Monocytes (%) (Auto) , Eosinophils (%) (Auto) , Basophils (%) (Auto) , Sodium Level 134L, Potassium Level 3.2L, Chloride Level 103, Carbon Dioxide Level 24, Anion Gap 7, Blood Urea Nitrogen 5L, Creatinine 0.6, Estimat Glomerular Filtration Rate > 60, Glucose Level 114H, Uric Acid 2.6, Calcium Level 7.4L, Phosphorus Level 2.3L, Magnesium Level 1.6L, Total Bilirubin 4.1H, Direct Bilirubin 2.9H, Aspartate Amino Transf (AST/SGOT) 107H, Alanine Aminotransferase (ALT/SGPT) 49, Alkaline Phosphatase 113, C-Reactive Protein, Quantitative 2.4H, Total Protein 6.3L, Albumin 1.9L, Globulin 4.4, Albumin/Globulin Ratio 0.4L Height (Feet): 5 Height (Inches): 6.00 Weight (Pounds): 150 General Appearance: no apparent distress Cardiovascular: normal rate Respiratory/Chest: decreased breath sounds Abdomen: distended Yves Otero MD Aug 20, 2020 10:32
--- NOTE | 2020-08-20 10:51 | NUR ---
Social Work This SW received a consult due to substance abuse. This SW met with patient to provide education and support, encouraging patient to abstain from alcohol. Patient stating, "I sometimes just drink three beers." Patient informed regarding his risks (and what has caused this hospitalization). 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 This SW also spoke with daughter, Alma ([phone]) who explains patient has been homeless for over three years, [place] [address]. Daughter explains patient will be living with her at the following address: [address] [place] [id number] Family will transport to home and will monitor patients drinking patterns. Daughter expressed concerns patient is depressed. Mental Health and Substance abuse resources provided to patient, who will give to his daughter as well. Daughter explains patient will follow up with [facility] [employer], where she works (due to patient is undocumented, does not qualify for full scope [facility]). 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, was independent overall with ADLS and ambulation prior. P.T following for strengthening here as well.
--- NOTE | 2020-08-20 10:55 | Pulmonology Progress Note ---
Subjective ROS Limited/Unobtainable: No Constitutional: Reports: no symptoms HEENT: Repors: no symptoms Respiratory: Reports: no symptoms Allergies: Coded Allergies: No Known Allergies (Unverified , 08/16/20) Objective Last 24 Hour Vital Signs Date Time Temp Pulse Resp B/P (MAP) Pulse Ox O2 Delivery O2 Flow Rate FiO2 08/20/20 08:35 Room Air 08/20/20 08:00 97.6 62 16 135/79 (97) 99 08/20/20 04:00 98.6 68 16 111/69 (83) 99 08/19/20 23:25 98.4 69 17 121/72 (88) 98 08/19/20 20:24 Room Air 08/19/20 19:39 99.4 73 18 114/65 (81) 99 08/19/20 16:00 98.6 72 16 117/69 (85) 98 08/19/20 12:00 98.5 68 14 125/73 (90) 98 Intake and Output 08/19/20 08/20/20 19:00 07:00 Intake Total 800 ml 670.00 ml Output Total 1300 ml 1000 ml Balance -500 ml -330.00 ml Intake Oral 800 ml 120 ml IV Total 550.00 ml Output Urine Total 1300 ml 1000 ml General Appearance: WD/WN Respiratory: chest wall non-tender, lungs clear Cardiovascular: normal peripheral pulses, regularly irregular Abdomen: normal bowel sounds, non distended Genitourinary: normal external genitalia Skin: no lesions Lymphatic: no neck adenopathy Laboratory Tests 08/20/20 04:50: White Blood Count 11.5H, Red Blood Count 3.16L, Hemoglobin 11.3L, Hematocrit 31.4L, Mean Corpuscular Volume 99, Mean Corpuscular Hemoglobin 35.7H, Mean Corpuscular Hemoglobin Concent 36.0, Red Cell Distribution Width 11.7, Platelet Count 87L, Mean Platelet Volume 12.9H, Neutrophils (%) (Auto) , Lymphocytes (%) (Auto) , Monocytes (%) (Auto) , Eosinophils (%) (Auto) , Basophils (%) (Auto) , Sodium Level 134L, Potassium Level 3.2L, Chloride Level 103, Carbon Dioxide Level 24, Anion Gap 7, Blood Urea Nitrogen 5L, Creatinine 0.6, Estimat Glomerular Filtration Rate > 60, Glucose Level 114H, Uric Acid 2.6, Calcium Level 7.4L, Phosphorus Level 2.3L, Magnesium Level 1.6L, Total Bilirubin 4.1H, Direct Bilirubin 2.9H, Aspartate Amino Transf (AST/SGOT) 107H, Alanine Aminotra nsferase (ALT/SGPT) 49, Alkaline Phosphatase 113, C-Reactive Protein, Quantitative 2.4H, Total Protein 6.3L, Albumin 1.9L, Globulin 4.4, Albumin/Globulin Ratio 0.4L Current Medications Medications (Trade) Dose Ordered Sig/Shaun Route PRN Reason Start Time Stop Time Status Last Admin Dose Admin Acetaminophen (Tylenol) 650 mg Q4H PRN ORAL Temp >100.5 08/16/20 17:00 09/15/20 16:59 08/18/20 19:55 Ceftriaxone Sodium 1 gm/ Dextrose 55 ml @ 110 mls/hr Q24H IVPB 08/17/20 10:00 08/24/20 09:59 08/20/20 09:07 Chlordiazepoxide (Librium) 25 mg Q6H PRN ORAL For Anxiety 08/18/20 11:45 08/23/20 11:29 Dextrose (Dextrose 50%) 25 ml Q30M PRN IV Hypoglycemia 08/16/20 11:30 11/14/20 11:29 Dextrose (Dextrose 50%) 50 ml Q30M PRN IV Hypoglycemia 08/16/20 11:30 11/14/20 11:29 Heparin Sodium (Porcine) (Heparin 5000 units/ml) 5,000 units EVERY 12 HOURS SUBQ 08/16/20 21:00 09/30/20 20:59 Lorazepam (Ativan 2mg/ml 1ml) 1 mg Q4H PRN IV agitation 08/16/20 11:30 08/23/20 11:29 Lorazepam (Ativan 2mg/ml 1ml) 1 mg Q4H PRN IV tachy HR>100 08/16/20 12:04 08/23/20 12:03 Magnesium Sulfate 100 ml @ 100 mls/hr Q1H IVPB 08/20/20 10:00 08/20/20 13:59 08/20/20 10:05 Ondansetron HCl (Zofran) 4 mg Q6H PRN IVP Nausea & Vomiting 08/16/20 11:30 09/15/20 11:29 Polyethylene Glycol (Miralax) 17 gm HSPRN PRN ORAL Constipation 08/16/20 11:30 09/15/20 11:29 Potassium Phosphate 20 mm/ Sodium Chloride 281.6667 ml @ 46.944 m... ONCE ONCE IV 08/20/20 13:00 08/20/20 18:59 Thiamine HCl 100 mg/Dextrose 56 ml @ 112 mls/hr Q24H IVPB 08/16/20 15:00 09/15/20 14:59 08/19/20 15:00 Tobramycin Sulfate (Tobramycin Opth Soln) 1 drop Q6HR BOTH EYES 08/16/20 18:00 08/23/20 17:59 08/20/20 05:20 Vancomycin HCl (Vanco pharmacy to dose) 1 ea DAILY PRN MISC Per rx protocol 08/17/20 16:15 09/16/20 16:14 Vancomycin/Sodium Chloride 275 ml @ 183.333 mls/hr Q8HR IVPB 08/19/20 14:00 08/24/20 13:59 08/20/20 05:19 Zolpidem Tartrate (Ambien) 5 mg HSPRN PRN ORAL Insomnia 08/16/20 11:30 08/23/20 11:29 Assessment/Plan Problems: (1) Fever (2) Alcohol withdrawal (3) 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
--- NOTE | 2020-08-20 11:07 | NUR ---
CASE MANAGEMENT:REVIEW 08/18/20 SI;ETOH WITHDRAWAL. BILATERAL CONJUNCTIVITIS. ELEVATED LFT. 102.6 81 21 93/58 96% ON RA WBC 11.0 NA 134 K+ 3.4 CA 7.4 IRON 91 T-BILI 5.5 D-BILI 4.0 GGT 745 AST 106 CRP 2.5 ALB 2.1 IS;THIAMINE IV Q24 TOBRAMYCIN OPTH Q6 ROCEPHIN IV Q24 VANCOMYCIN IV Q8 MED SURG STATUS CASE MANAGEMENT:REVIEW 08/19/20 SI;ETOH WITHDRAWAL. BILATERAL CONJUNCTIVITIS. ELEVATED LFT. 98.6 77 21 99/61 95% ON RA NA 131 BG 152 CA 7.3 T-BILI 4.3 D-BILI 3.4 ALB 2.1 IS;ROCEPHIN IV Q24 TOBRAMYCIN OPTH Q6 VANCOMYCIN IV Q8 THIAMINE IV Q24 MED SURG STATUS CASE MANAGEMENT:REVIEW 08/20/20 SI;ETOH WITHDRAWAL. BILATERAL CONJUNCTIVITIS. ELEVATED LFT. 98.6 68 17 135/79 98% ON RA WBC 11.5 NA 134 K+ 3.2 CA 7.4 MAG 1.6 T-BILI 4.1 D-BILI 2.9 CRP 2.4 ALB 1.9 IS;ROCEPHIN IV Q24 TOBRAMYCIN OPTH Q6 VANCOMYCIN IV Q8 THIAMINE IV Q24 MAG SULFATE IV K PHOSPHATE IV MED SURG STATUS DCP;PATIENT IS HOMELESS PER DAUGHTER, PATIENT WILL LIVE WITH HER [place]
[2020-08-20 12:00] VITALS: BP 119/76
[2020-08-20] MEDS ORDERED: Potassium Phosphate 20 MM in NS 275 ML IV ONE (13:00)
--- NOTE | 2020-08-20 14:31 | Infectious Diseases Prog Note ---
Assessment/Plan 54 yo male with PMHx of EtOH abuse who presented to the ED yesterday with acute alcohol intoxication. COVID19 neg x1 (08/16 rapid COVID PCR neg) B/L Conjuntivitits - EOMI intact no vision problems no significant pain Viral Vs bacterial Sepsis Fever; improving Leukocytosis; improving -08/17 Bcx NTD, ucx neg -/ u/a neg; ucx neg Bcx NTD CXR neg Elevated AST/GGT- suspect probably to underlying liver disease and ETOH withdrawal- r/o infectious or other hepatobiliary disease Direct hyperbilirubinemia -UDS, alcohole level neg PLAN - Continue tobramycin #5/7 Eye drops - Continue empiric Ceftriaxone #5 for now pending Abd US - Dc IV Vancomcyin #4 Pending Cx - f/u Cultures - Monitor CBC and Temps -HIV ab screen, acute hep panel, Abd US Thank you for this consult. [facility] will continue to follow Ms. Granados with you during her hospitalization. Subjective Allergies: Coded Allergies: No Known Allergies (Unverified , 08/16/20) afebrile >36hrs mild leukocytosis Bcx NTD Objective Last 24 Hour Vital Signs Date Time Temp Pulse Resp B/P (MAP) Pulse Ox O2 Delivery O2 Flow Rate FiO2 08/20/20 12:00 97.6 74 17 119/76 (90) 99 08/20/20 08:35 Room Air 08/20/20 08:00 97.6 62 16 135/79 (97) 99 08/20/20 04:00 98.6 68 16 111/69 (83) 99 08/19/20 23:25 98.4 69 17 121/72 (88) 98 08/19/20 20:24 Room Air 08/19/20 19:39 99.4 73 18 114/65 (81) 99 08/19/20 16:00 98.6 72 16 117/69 (85) 98 Height (Feet): 5 Height (Inches): 6.00 Weight (Pounds): 150 GEN: NAD on RA HEENT: NCAT, MMM, EOMI, No scleral icterus, Eyes with mild conjunctivitis B/L CHEST Equal rise and fall B/L ABD: Soft NT Laboratory Tests Test 08/20/20 04:50 08/20/20 13:00 White Blood Count 11.5 K/UL (4.8-10.8) H Red Blood Count 3.16 M/UL (4.70-6.10) L Hemoglobin 11.3 G/DL (14.2-18.0) L Hematocrit 31.4 % (42.0-52.0) L Mean Corpuscular Volume 99 FL (80-99) Mean Corpuscular Hemoglobin 35.7 PG (27.0-31.0) H Mean Corpuscular Hemoglobin Concent 36.0 G/DL (32.0-36.0) Red Cell Distribution Width 11.7 % (11.6-14.8) Platelet Count 87 K/UL (150-450) L Mean Platelet Volume 12.9 FL (6.5-10.1) H Neutrophils (%) (Auto) % (45.0-75.0) Lymphocytes (%) (Auto) % (20.0-45.0) Monocytes (%) (Auto) % (1.0-10.0) Eosinophils (%) (Auto) % (0.0-3.0) Basophils (%) (Auto) % (0.0-2.0) Sodium Level 134 MMOL/L (136-145) L Potassium Level 3.2 MMOL/L (3.5-5.1) L Chloride Level 103 MMOL/L (98-107) Carbon Dioxide Level 24 MMOL/L (21-32) Anion Gap 7 mmol/L (5-15) Blood Urea Nitrogen 5 mg/dL (7-18) L Creatinine 0.6 MG/DL (0.55-1.30) Estimat Glomerular Filtration Rate > 60 mL/min (>60) Glucose Level 114 MG/DL (74-106) H Uric Acid 2.6 MG/DL (2.6-7.2) Calcium Level 7.4 MG/DL (8.5-10.1) L Phosphorus Level 2.3 MG/DL (2.5-4.9) L Magnesium Level 1.6 MG/DL (1.8-2.4) L Total Bilirubin 4.1 MG/DL (0.2-1.0) H Direct Bilirubin 2.9 MG/DL (0.0-0.3) H Aspartate Amino Transf (AST/SGOT) 107 U/L (15-37) H Alanine Aminotransferase (ALT/SGPT) 49 U/L (12-78) Alkaline Phosphatase 113 U/L (46-116) C-Reactive Protein, Quantitative 2.4 mg/dL (0.00-0.90) H Total Protein 6.3 G/DL (6.4-8.2) L Albumin 1.9 G/DL (3.4-5.0) L Globulin 4.4 g/dL Albumin/Globulin Ratio 0.4 (1.0-2.7) L Vancomycin Level Trough 17.4 ug/mL (5.0-12.0) H Current Medications Medications (Trade) Dose Ordered Sig/Shaun Route PRN Reason Start Time Stop Time Status Last Admin Dose Admin Acetaminophen (Tylenol) 650 mg Q4H PRN ORAL Temp >100.5 08/16/20 17:00 09/15/20 16:59 08/18/20 19:55 Ceftriaxone Sodium 1 gm/ Dextrose 55 ml @ 110 mls/hr Q24H IVPB 08/17/20 10:00 08/24/20 09:59 08/20/20 09:07 Chlordiazepoxide (Librium) 25 mg Q6H PRN ORAL For Anxiety 08/18/20 11:45 08/23/20 11:29 Dextrose (Dextrose 50%) 25 ml Q30M PRN IV Hypoglycemia 08/16/20 11:30 11/14/20 11:29 Dextrose (Dextrose 50%) 50 ml Q30M PRN IV Hypoglycemia 08/16/20 11:30 11/14/20 11:29 Heparin Sodium (Porcine) (Heparin 5000 units/ml) 5,000 units EVERY 12 HOURS SUBQ 08/16/20 21:00 09/30/20 20:59 Lorazepam (Ativan 2mg/ml 1ml) 1 mg Q4H PRN IV agitation 08/16/20 11:30 08/23/20 11:29 Lorazepam (Ativan 2mg/ml 1ml) 1 mg Q4H PRN IV tachy HR>100 08/16/20 12:04 08/23/20 12:03 Ondansetron HCl (Zofran) 4 mg Q6H PRN IVP Nausea & Vomiting 08/16/20 11:30 09/15/20 11:29 Polyethylene Glycol (Miralax) 17 gm HSPRN PRN ORAL Constipation 08/16/20 11:30 09/15/20 11:29 Potassium Phosphate 20 mm/ Sodium Chloride 281.6667 ml @ 46.944 m... ONCE ONCE IV 08/20/20 13:00 08/20/20 18:59 08/20/20 13:15 Thiamine HCl 100 mg/Dextrose 56 ml @ 112 mls/hr Q24H IVPB 08/16/20 15:00 09/15/20 14:59 08/19/20 15:00 Tobramycin Sulfate (Tobramycin Opth Soln) 1 drop Q6HR BOTH EYES 08/16/20 18:00 08/23/20 17:59 08/20/20 12:20 Vancomycin HCl (Vanco pharmacy to dose) 1 ea DAILY PRN MISC Per rx protocol 08/17/20 16:15 09/16/20 16:14 Vancomycin/Sodium Chloride 275 ml @ 183.333 mls/hr Q8HR IVPB 08/19/20 14:00 08/24/20 13:59 08/20/20 05:19 Zolpidem Tartrate (Ambien) 5 mg HSPRN PRN ORAL Insomnia 08/16/20 11:30 08/23/20 11:29 Carolina Vargas M.D. Aug 20, 2020 14:31
[2020-08-20] MEDS: Thiamine 100mg in D5W 55ml IVPB SCH (15:28)
[2020-08-20 16:00] VITALS: BP 141/79
--- NOTE | 2020-08-20 18:35 | Internal Med Progress Note ---
Subjective Date of Service: Aug 20, 2020 Physician Name Marquez Trevino Attending Physician Gentry Marino MD Current Medications Medications (Trade) Dose Ordered Sig/Shaun Route PRN Reason Start Time Stop Time Status Last Admin Dose Admin Acetaminophen (Tylenol) 650 mg Q4H PRN ORAL Temp >100.5 08/16/20 17:00 09/15/20 16:59 08/18/20 19:55 Ceftriaxone Sodium 1 gm/ Dextrose 55 ml @ 110 mls/hr Q24H IVPB 08/17/20 10:00 08/24/20 09:59 08/20/20 09:07 Chlordiazepoxide (Librium) 25 mg Q6H PRN ORAL For Anxiety 08/18/20 11:45 08/23/20 11:29 Dextrose (Dextrose 50%) 25 ml Q30M PRN IV Hypoglycemia 08/16/20 11:30 11/14/20 11:29 Dextrose (Dextrose 50%) 50 ml Q30M PRN IV Hypoglycemia 08/16/20 11:30 11/14/20 11:29 Heparin Sodium (Porcine) (Heparin 5000 units/ml) 5,000 units EVERY 12 HOURS SUBQ 08/16/20 21:00 09/30/20 20:59 Lorazepam (Ativan 2mg/ml 1ml) 1 mg Q4H PRN IV agitation 08/16/20 11:30 08/23/20 11:29 Lorazepam (Ativan 2mg/ml 1ml) 1 mg Q4H PRN IV tachy HR>100 08/16/20 12:04 08/23/20 12:03 Ondansetron HCl (Zofran) 4 mg Q6H PRN IVP Nausea & Vomiting 08/16/20 11:30 09/15/20 11:29 Polyethylene Glycol (Miralax) 17 gm HSPRN PRN ORAL Constipation 08/16/20 11:30 09/15/20 11:29 Potassium Phosphate 20 mm/ Sodium Chloride 281.6667 ml @ 46.944 m... ONCE ONCE IV 08/20/20 13:00 08/20/20 18:59 08/20/20 13:15 Thiamine HCl 100 mg/Dextrose 56 ml @ 112 mls/hr Q24H IVPB 08/16/20 15:00 09/15/20 14:59 08/20/20 15:28 Tobramycin Sulfate (Tobramycin Opth Soln) 1 drop Q6HR BOTH EYES 08/16/20 18:00 08/23/20 17:59 08/20/20 17:31 Zolpidem Tartrate (Ambien) 5 mg HSPRN PRN ORAL Insomnia 08/16/20 11:30 08/23/20 11:29 Allergies: Coded Allergies: No Known Allergies (Unverified , 08/16/20) ROS Limited/Unobtainable: No Constitutional: Reports: no symptoms HEENT: Reports: no symptoms Cardiovascular: Reports: no symptoms Respiratory: Reports: no symptoms Gastrointestinal/Abdominal: Reports: no symptoms Genitourinary: Reports: no symptoms Neurologic/Psychiatric: Reports: no symptoms Subjective 54 YO M admitted with alcohol intoxication. Now alcohol withdrawal and conjunctivitis. Cover for Int Johnathon-DR Marino Objective Last Vital Signs Date Time Temp Pulse Resp B/P (MAP) Pulse Ox O2 Delivery O2 Flow Rate FiO2 08/20/20 16:00 98.0 72 18 141/79 (99) 98 08/20/20 08:35 Room Air Laboratory Tests Test 08/20/20 04:50 08/20/20 13:00 White Blood Count 11.5 K/UL (4.8-10.8) H Red Blood Count 3.16 M/UL (4.70-6.10) L Hemoglobin 11.3 G/DL (14.2-18.0) L Hematocrit 31.4 % (42.0-52.0) L Mean Corpuscular Volume 99 FL (80-99) Mean Corpuscular Hemoglobin 35.7 PG (27.0-31.0) H Mean Corpuscular Hemoglobin Concent 36.0 G/DL (32.0-36.0) Red Cell Distribution Width 11.7 % (11.6-14.8) Platelet Count 87 K/UL (150-450) L Mean Platelet Volume 12.9 FL (6.5-10.1) H Neutrophils (%) (Auto) % (45.0-75.0) Lymphocytes (%) (Auto) % (20.0-45.0) Monocytes (%) (Auto) % (1.0-10.0) Eosinophils (%) (Auto) % (0.0-3.0) Basophils (%) (Auto) % (0.0-2.0) Sodium Level 134 MMOL/L (136-145) L Potassium Level 3.2 MMOL/L (3.5-5.1) L Chloride Level 103 MMOL/L (98-107) Carbon Dioxide Level 24 MMOL/L (21-32) Anion Gap 7 mmol/L (5-15) Blood Urea Nitrogen 5 mg/dL (7-18) L Creatinine 0.6 MG/DL (0.55-1.30) Estimat Glomerular Filtration Rate > 60 mL/min (>60) Glucose Level 114 MG/DL (74-106) H Uric Acid 2.6 MG/DL (2.6-7.2) Calcium Level 7.4 MG/DL (8.5-10.1) L Phosphorus Level 2.3 MG/DL (2.5-4.9) L Magnesium Level 1.6 MG/DL (1.8-2.4) L Total Bilirubin 4.1 MG/DL (0.2-1.0) H Direct Bilirubin 2.9 MG/DL (0.0-0.3) H Aspartate Amino Transf (AST/SGOT) 107 U/L (15-37) H Alanine Aminotransferase (ALT/SGPT) 49 U/L (12-78) Alkaline Phosphatase 113 U/L (46-116) C-Reactive Protein, Quantitative 2.4 mg/dL (0.00-0.90) H Total Protein 6.3 G/DL (6.4-8.2) L Albumin 1.9 G/DL (3.4-5.0) L Globulin 4.4 g/dL Albumin/Globulin Ratio 0.4 (1.0-2.7) L Vancomycin Level Trough 17.4 ug/mL (5.0-12.0) H Intake and Output 08/19/20 08/20/20 19:00 07:00 Intake Total 800 ml 670.00 ml Output Total 1300 ml 1000 ml Balance -500 ml -330.00 ml Intake Oral 800 ml 120 ml IV Total 550.00 ml Output Urine Total 1300 ml 1000 ml Objective PHYSICAL EXAMINATION: GENERAL: The patient is well-developed and well-nourished male, who is somnolent but arousable. HEENT: Eyes with crusty discharge bilaterally and conjunctival erythema. NECK: Supple without lymphadenopathy. CHEST: Lungs are clear to auscultation bilaterally without wheezes or rales. CARDIOVASCULAR: Regular rhythm and rate. S1, S2 normal without murmurs, rubs, or gallops. ABDOMEN: Soft, nontender, nondistended. Positive bowel sounds. No evidence of hepatosplenomegaly. Currently, no rebound or guarding noted. EXTREMITIES: Negative for clubbing, cyanosis, or edema. RECTAL/GENITAL: Not performed. NEUROLOGICAL: Cranial nerves II through XII are grossly intact without focal deficits. Motor strength is 5/5 bilaterally. Deep tendon reflexes are 2+ plantar. Assessment/Plan Assessment/Plan ASSESSMENT: This is a 54-year-old male: 1. Alcohol abuse. 2. Acute alcohol withdrawal. 3. Bilateral conjunctivitis. 4. Elevated liver function tests. 5. Low grade fever TREATMENT: 1. Alcohol dependence/withdrawal. The patient has been placed on Librium and Ativan as needed for alcohol withdrawal symptoms. Gabapentin has been added for withdrawal seizure precaution. 2. Conjunctivitis. The patient has been started on tobramycin eye drops every 6 hours. 3. Elevated liver function tests is probably secondary to chronic alcoholism. 4. Urine and blood culture = no growth; Continue vanco and ceftriaxone per ID=Dr Rice. 6. Discharge planning Marquez Trevino MD Aug 20, 2020 18:35
--- NOTE | 2020-08-20 19:27 | NUR ---
NURSE HAND-OFF: Important Events on Shift:antibiotic therapy, electrolyte replacement, ambulate with PT Patient Status: stable Diet: ccho med Pending Orders: n/a Pending Results/Labs:n/a Pending MD notification:n/a Latest Vital Signs: Temperature 98.0 , Pulse 72 , B/P 141 /79 , Respiratory Rate 18 , O2 SAT 98 , Room Air, O2 Flow Rate . Vital Sign Comment: n/a Latest Acosta Fall Score: 45 Fall Risk: High Risk Safety Measures: Call light Within Reach, Side Rails x2, Bed position Low and Locked. Fall Precautions: Yellow Socks Yellow Gown Patient Fall Education Report given to Lois RIVERA.
--- NOTE | 2020-08-20 19:30 | NUR ---
NURSE NOTES: Received report & pt from MIGUEL Maier. Pt in bed, a&ox4, in room air. No s/s of acute distress & no c/o pain at this time. Condom cath intact & draining to gravity. IV site intact. Pt NPO @ midnight & made pt aware; verbalized understanding. Plan of care discussed.
[2020-08-20 20:00] VITALS: BP 113/69
[2020-08-21 03:28] VITALS: BP 114/67
[2020-08-21] MEDS: Tobramycin Op Soln 0.3% 5ml BOTH EYES SCH ×4 (05:09→23:08)
[2020-08-21 06:28] LABS: BASOPHILS % (AUTO) 2.7 % (0.0-2.0); EOSINOPHILS % (AUTO) 4.5 % (0.0-3.0); HEMATOCRIT 32.2 % (42.0-52.0); HEMOGLOBIN 11.3 G/DL (14.2-18.0); LYMPHOCYTES % (AUTO) 16.3 % (20.0-45.0); MEAN CORPUSCULAR VOLUME 101 FL (80-99); MONOCYTES % (AUTO) 14.2 % (1.0-10.0); NEUTROPHILS % (AUTO) 62.4 % (45.0-75.0); PLATELET COUNT 114 K/UL (150-450); RED CELL DISTRIBUTION WIDTH 11.7 % (11.6-14.8); WHITE BLOOD COUNT 10.9 K/UL (4.8-10.8)
--- NOTE | 2020-08-21 06:28 | NUR ---
NURSE HAND-OFF: Important Events on Shift:none Patient Status: stable Diet: npo since midnight Pending Orders: US Abd Pending Results/Labs:none Pending MD notification:none Latest Vital Signs: Temperature 98.0 , Pulse 61 , B/P 114 /67 , Respiratory Rate 16 , O2 SAT 96 , Room Air, O2 Flow Rate . Vital Sign Comment: none Latest Acosta Fall Score: 45 Fall Risk: High Risk Safety Measures: Call light Within Reach, Bed Alarm Zone 2, Side Rails Side Rails x3, Bed position Low and Locked. Fall Precautions: Yellow Socks Yellow Gown Patient Fall Education Report given to . Addendum: 08/21/20 at 0707 by Lois Rodarte RN Report given to MIGUEL Maier.
[2020-08-21 06:47] LABS: ANION GAP 6 mmol/L (5-15); BLOOD UREA NITROGEN 3 mg/dL (7-18); CALCIUM 7.7 MG/DL (8.5-10.1); CARBON DIOXIDE 26 MMOL/L (21-32); CHLORIDE 103 MMOL/L (98-107); CREATININE 0.6 MG/DL (0.55-1.30); SODIUM 135 MMOL/L (136-145)
--- NOTE | 2020-08-21 07:21 | NUR ---
NURSE NOTES: Patient is in bed asleep. Stable. Breathing is even and unlabored. No visible signs of distress noted. Patient is in bed in locked and lowest position with call light within reach. All safety measures provided. Will continue to monitor.
[2020-08-21 08:00] VITALS: BP 123/72
--- NOTE | 2020-08-21 08:45 | NUR ---
NURSE NOTES: US being done at bedside.
[2020-08-21] MEDS: cefTRIAXone 1 GM in D5W 55 ML IVPB SCH (09:28)
[2020-08-21] MEDS: Heparin 5000 units/ml inj SUBQ SCH ×2 (09:29→20:31)
--- NOTE | 2020-08-21 09:57 | NUR ---
CASE MANAGEMENT:REVIEW SI;ETOH WITHDRAWAL. BILATERAL CONJUNCTIVITIS. ELEVATED LFT. 98.3 56 18 123/72 96% ON RA WBC 10.9 PLT 114 NA 135 K+ 3.0 CA 7.7 IS;ROCEPHIN IV Q24 HEPARIN SUBQ Q12 TOBRAMYCIN OPT BOTH EYES Q6 THIAMINE IV Q24 MED SURG STATUS DCP;PATIENT REPORTS HOMELESSNESS PER NOTES, PATIENT WILL DC TO [facility]
[2020-08-21 12:00] VITALS: BP 119/63
--- NOTE | 2020-08-21 12:23 | Infectious Diseases Prog Note ---
Assessment/Plan 54 yo male with PMHx of EtOH abuse who presented to the ED yesterday with acute alcohol intoxication. COVID19 neg x1 (08/16 rapid COVID PCR neg) B/L Conjuntivitits - EOMI intact no vision problems no significant pain Viral Vs bacterial Sepsis Fever; SP Leukocytosis; resolving -08/17 Bcx NTD, ucx neg -08/16 u/a neg; ucx neg Bcx NTD CXR neg Elevated AST/GGT; improving- suspect probably to underlying liver disease and ETOH withdrawal- r/o infectious or other hepatobiliary disease Direct hyperbilirubinemia -Abd US: p -UDS, alcohol level neg -HIV ab screen neg PLAN - Continue tobramycin #6/7 Eye drops - Continue empiric Ceftriaxone #6 for now pending Abd US - 08/20 SP IV Vancomycin #4 - f/u Cultures - Monitor CBC and Temps -f/u acute hep panel, Abd US Thank you for this consult. [facility] will continue to follow Ms. Granados with you during her hospitalization. Subjective Allergies: Coded Allergies: No Known Allergies (Unverified , 08/16/20) afebrile >48hrs mild leukocytosis improving LFts improving Bcx NTD Objective Last 24 Hour Vital Signs Date Time Temp Pulse Resp B/P (MAP) Pulse Ox O2 Delivery O2 Flow Rate FiO2 08/21/20 08:00 98.0 56 16 123/72 (89) 99 08/21/20 07:41 Room Air 08/21/20 03:28 98.0 61 16 114/67 (83) 96 08/20/20 20:45 Room Air 08/20/20 20:00 98.3 74 18 113/69 (84) 97 08/20/20 16:00 98.0 72 18 141/79 (99) 98 Height (Feet): 5 Height (Inches): 6.00 Weight (Pounds): 150 GEN: NAD on RA HEENT: NCAT, MMM, EOMI, No scleral icterus, Eyes with mild conjunctivitis B/L CHEST Equal rise and fall B/L ABD: Soft NT Laboratory Tests Test 08/20/20 13:00 08/21/20 05:00 Vancomycin Level Trough 17.4 ug/mL (5.0-12.0) H White Blood Count 10.9 K/UL (4.8-10.8) H Red Blood Count 3.20 M/UL (4.70-6.10) L Hemoglobin 11.3 G/DL (14.2-18.0) L Hematocrit 32.2 % (42.0-52.0) L Mean Corpuscular Volume 101 FL (80-99) H Mean Corpuscular Hemoglobin 35.4 PG (27.0-31.0) H Mean Corpuscular Hemoglobin Concent 35.2 G/DL (32.0-36.0) Red Cell Distribution Width 11.7 % (11.6-14.8) Platelet Count 114 K/UL (150-450) L Mean Platelet Volume 11.4 FL (6.5-10.1) H Neutrophils (%) (Auto) 62.4 % (45.0-75.0) Lymphocytes (%) (Auto) 16.3 % (20.0-45.0) L Monocytes (%) (Auto) 14.2 % (1.0-10.0) H Eosinophils (%) (Auto) 4.5 % (0.0-3.0) H Basophils (%) (Auto) 2.7 % (0.0-2.0) H Sodium Level 135 MMOL/L (136-145) L Potassium Level 3.0 MMOL/L (3.5-5.1) L Chloride Level 103 MMOL/L (98-107) Carbon Dioxide Level 26 MMOL/L (21-32) Anion Gap 6 mmol/L (5-15) Blood Urea Nitrogen 3 mg/dL (7-18) L Creatinine 0.6 MG/DL (0.55-1.30) Estimat Glomerular Filtration Rate > 60 mL/min (>60) Glucose Level 122 MG/DL (74-106) H Calcium Level 7.7 MG/DL (8.5-10.1) L Hepatitis A IgM Antibody Pending Hepatitis B Surface Antigen Pending Hepatitis B Core IgM Antibody Pending Hepatitis C Antibody Pending HIV (1&2) Antibody Rapid Negative (NEGATIVE) Current Medications Medications (Trade) Dose Ordered Sig/Shaun Route PRN Reason Start Time Stop Time Status Last Admin Dose Admin Acetaminophen (Tylenol) 650 mg Q4H PRN ORAL Temp >100.5 08/16/20 17:00 09/15/20 16:59 08/20/20 21:32 Ceftriaxone Sodium 1 gm/ Dextrose 55 ml @ 110 mls/hr Q24H IVPB 08/17/20 10:00 08/24/20 09:59 08/21/20 09:28 Chlordiazepoxide (Librium) 25 mg Q6H PRN ORAL For Anxiety 08/18/20 11:45 08/23/20 11:29 Dextrose (Dextrose 50%) 25 ml Q30M PRN IV Hypoglycemia 08/16/20 11:30 11/14/20 11:29 Dextrose (Dextrose 50%) 50 ml Q30M PRN IV Hypoglycemia 08/16/20 11:30 11/14/20 11:29 Heparin Sodium (Porcine) (Heparin 5000 units/ml) 5,000 units EVERY 12 HOURS SUBQ 08/16/20 21:00 09/30/20 20:59 08/21/20 09:29 Lorazepam (Ativan 2mg/ml 1ml) 1 mg Q4H PRN IV agitation 08/16/20 11:30 08/23/20 11:29 Lorazepam (Ativan 2mg/ml 1ml) 1 mg Q4H PRN IV tachy HR>100 08/16/20 12:04 08/23/20 12:03 Ondansetron HCl (Zofran) 4 mg Q6H PRN IVP Nausea & Vomiting 08/16/20 11:30 09/15/20 11:29 Polyethylene Glycol (Miralax) 17 gm HSPRN PRN ORAL Constipation 08/16/20 11:30 09/15/20 11:29 Potassium Chloride (K-Dur) 40 meq TWICE A DAY ORAL 08/21/20 12:15 11/19/20 12:14 Thiamine HCl 100 mg/Dextrose 56 ml @ 112 mls/hr Q24H IVPB 08/16/20 15:00 09/15/20 14:59 08/20/20 15:28 Tobramycin Sulfate (Tobramycin Opth Soln) 1 drop Q6HR BOTH EYES 08/16/20 18:00 08/23/20 17:59 08/21/20 11:48 Zolpidem Tartrate (Ambien) 5 mg HSPRN PRN ORAL Insomnia 08/16/20 11:30 08/23/20 11:29 Carolina Vargas M.D. Aug 21, 2020 12:23
--- NOTE | 2020-08-21 13:24 | Nephrology Progress Note ---
Assessment/Plan Problem List: (1) Electrolyte imbalance (2) Dehydration (3) Alcohol withdrawal (4) Leukocytosis (5) Fever Assessment Abnormal electrolytes Alcohol withdrawal Alcoholic liver disease Fever, sepsis Plan August 21: Labs reviewed. Electrolyte abnormalities addressed. Most of the medication via p.o. Remains on ceftriaxone. Continue to monitor renal parameters. August 20: Labs reviewed. Electrolyte abnormalities addressed. Continue as is. IV supplements of electrolyte deficits Thiamine Hydration Per orders Subjective ROS Limited/Unobtainable: No Constitutional: Reports: malaise Objective Objective Last 24 Hour Vital Signs Date Time Temp Pulse Resp B/P (MAP) Pulse Ox O2 Delivery O2 Flow Rate FiO2 08/21/20 12:00 97.2 70 18 119/63 (81) 98 08/21/20 08:00 98.0 56 16 123/72 (89) 99 08/21/20 07:41 Room Air 08/21/20 03:28 98.0 61 16 114/67 (83) 96 08/20/20 20:45 Room Air 08/20/20 20:00 98.3 74 18 113/69 (84) 97 08/20/20 16:00 98.0 72 18 141/79 (99) 98 Intake and Output 08/20/20 08/21/20 19:00 07:00 Intake Total 120 ml Output Total 900 ml 800 ml Balance -900 ml -680 ml Intake Oral 120 ml Output Urine Total 900 ml 800 ml # Voids 1 Current Medications Medications (Trade) Dose Ordered Sig/Shaun Route PRN Reason Start Time Stop Time Status Last Admin Dose Admin Acetaminophen (Tylenol) 650 mg Q4H PRN ORAL Temp >100.5 08/16/20 17:00 09/15/20 16:59 08/20/20 21:32 Ceftriaxone Sodium 1 gm/ Dextrose 55 ml @ 110 mls/hr Q24H IVPB 08/17/20 10:00 08/24/20 09:59 08/21/20 09:28 Chlordiazepoxide (Librium) 25 mg Q6H PRN ORAL For Anxiety 08/18/20 11:45 08/23/20 11:29 Dextrose (Dextrose 50%) 25 ml Q30M PRN IV Hypoglycemia 08/16/20 11:30 11/14/20 11:29 Dextrose (Dextrose 50%) 50 ml Q30M PRN IV Hypoglycemia 08/16/20 11:30 11/14/20 11:29 Heparin Sodium (Porcine) (Heparin 5000 units/ml) 5,000 units EVERY 12 HOURS SUBQ 08/16/20 21:00 09/30/20 20:59 08/21/20 09:29 Lorazepam (Ativan 2mg/ml 1ml) 1 mg Q4H PRN IV agitation 08/16/20 11:30 08/23/20 11:29 Lorazepam (Ativan 2mg/ml 1ml) 1 mg Q4H PRN IV tachy HR>100 08/16/20 12:04 08/23/20 12:03 Ondansetron HCl (Zofran) 4 mg Q6H PRN IVP Nausea & Vomiting 08/16/20 11:30 09/15/20 11:29 Polyethylene Glycol (Miralax) 17 gm HSPRN PRN ORAL Constipation 08/16/20 11:30 09/15/20 11:29 Potassium Chloride (K-Dur) 40 meq TWICE A DAY ORAL 08/21/20 12:15 11/19/20 12:14 08/21/20 12:22 Thiamine HCl (Vitamin B1) 100 mg DAILY ORAL 08/22/20 09:00 09/21/20 08:59 Tobramycin Sulfate (Tobramycin Opth Soln) 1 drop Q6HR BOTH EYES 08/16/20 18:00 08/23/20 17:59 08/21/20 11:48 Zolpidem Tartrate (Ambien) 5 mg HSPRN PRN ORAL Insomnia 08/16/20 11:30 08/23/20 11:29 Laboratory Tests 08/21/20 05:00: White Blood Count 10.9H, Red Blood Count 3.20L, Hemoglobin 11.3L, Hematocrit 32.2L, Mean Corpuscular Volume 101H, Mean Corpuscular Hemoglobin 35.4H, Mean Corpuscular Hemoglobin Concent 35.2, Red Cell Distribution Width 11.7, Platelet Count 114L, Mean Platelet Volume 11.4H, Neutrophils (%) (Auto) 62.4, Lymphocytes (%) (Auto) 16.3L, Monocytes (%) (Auto) 14.2H, Eosinophils (%) (Auto) 4.5H, Basophils (%) (Auto) 2.7H, Sodium Level 135L, Potassium Level 3.0L, Chloride Level 103, Carbon Dioxide Level 26, Anion Gap 6, Blood Urea Nitrogen 3L, Creatinine 0.6, Estimat Glomerular Filtration Rate > 60, Glucose Level 122H, Calcium Level 7.7L, Hepatitis A IgM Antibody [Pending], Hepatitis B Surface Antigen [Pending], Hepatitis B Core IgM Antibody [Pending], Hepatitis C Antibody [Pending], HIV (1&2) Antibody Rapid Negative Height (Feet): 5 Height (Inches): 6.00 Weight (Pounds): 150 Cardiovascular: normal rate Respiratory/Chest: decreased breath sounds Abdomen: soft Yves Otero MD Aug 21, 2020 13:24
--- NOTE | 2020-08-21 13:48 | Diagnostic Imaging Report ---
Indication: Abnormal liver function tests Technique: Maurer-scale and duplex images of the upper abdomen were obtained Comparison: Findings: Gallbladder demonstrates sludge and possible small stones. No wall thickening. There is some free fluid in the mac hepatis as well as around the spleen. Sonographic Dinero's sign is negative. Common bile duct measures 5 mm in diameter. No intrahepatic biliary ductal dilatation. Liver demonstrates normal echogenicity. There is a small right lobe hepatic cyst. Liver is somewhat enlarged.. It does demonstrate some surface nodularity Portal vein and hepatic veins are patent. Pancreas is unremarkable. Spleen is unremarkable. Left kidney measures 13.5 cm in length. Right kidney measures 12.4 cm length. Both kidneys demonstrate normal echogenicity. There is no hydronephrosis. No focal abnormality . Non-aneurysmal abdominal aorta . Impression: Gallbladder sludge and possible small stones. Negative for dilated bile ducts Mild hepatic surface nodularity, could indicate early cirrhotic change Trace ascites Incidental finding right lobe liver cyst
[2020-08-21 16:00] VITALS: BP 108/69
--- NOTE | 2020-08-21 17:20 | Cardiology Report ---
APPROVED REPORT EKG Measurement Heart [id number] <Conclusion> Normal sinus rhythm Prolonged QT Abnormal ECG
--- NOTE | 2020-08-21 17:25 | Internal Med Progress Note ---
Subjective Date of Service: Aug 21, 2020 Physician Name Marquez Trevino Attending Physician Gentry Marino MD Current Medications Medications (Trade) Dose Ordered Sig/Shaun Route PRN Reason Start Time Stop Time Status Last Admin Dose Admin Acetaminophen (Tylenol) 650 mg Q4H PRN ORAL Temp >100.5 08/16/20 17:00 09/15/20 16:59 08/20/20 21:32 Ceftriaxone Sodium 1 gm/ Dextrose 55 ml @ 110 mls/hr Q24H IVPB 08/17/20 10:00 08/24/20 09:59 08/21/20 09:28 Chlordiazepoxide (Librium) 25 mg Q6H PRN ORAL For Anxiety 08/18/20 11:45 08/23/20 11:29 Dextrose (Dextrose 50%) 25 ml Q30M PRN IV Hypoglycemia 08/16/20 11:30 11/14/20 11:29 Dextrose (Dextrose 50%) 50 ml Q30M PRN IV Hypoglycemia 08/16/20 11:30 11/14/20 11:29 Heparin Sodium (Porcine) (Heparin 5000 units/ml) 5,000 units EVERY 12 HOURS SUBQ 08/16/20 21:00 09/30/20 20:59 08/21/20 09:29 Lorazepam (Ativan 2mg/ml 1ml) 1 mg Q4H PRN IV agitation 08/16/20 11:30 08/23/20 11:29 Lorazepam (Ativan 2mg/ml 1ml) 1 mg Q4H PRN IV tachy HR>100 08/16/20 12:04 08/23/20 12:03 Ondansetron HCl (Zofran) 4 mg Q6H PRN IVP Nausea & Vomiting 08/16/20 11:30 09/15/20 11:29 Polyethylene Glycol (Miralax) 17 gm HSPRN PRN ORAL Constipation 08/16/20 11:30 09/15/20 11:29 Potassium Chloride (K-Dur) 40 meq TWICE A DAY ORAL 08/21/20 12:15 11/19/20 12:14 08/21/20 12:22 Thiamine HCl (Vitamin B1) 100 mg DAILY ORAL 08/22/20 09:00 09/21/20 08:59 Tobramycin Sulfate (Tobramycin Opth Soln) 1 drop Q6HR BOTH EYES 08/16/20 18:00 08/23/20 17:59 08/21/20 11:48 Zolpidem Tartrate (Ambien) 5 mg HSPRN PRN ORAL Insomnia 08/16/20 11:30 08/23/20 11:29 Allergies: Coded Allergies: No Known Allergies (Unverified , 08/16/20) ROS Limited/Unobtainable: No Constitutional: Reports: no symptoms HEENT: Reports: no symptoms Cardiovascular: Reports: no symptoms Respiratory: Reports: no symptoms Gastrointestinal/Abdominal: Reports: no symptoms Genitourinary: Reports: no symptoms Neurologic/Psychiatric: Reports: no symptoms Subjective 54 YO M admitted with alcohol intoxication. Now alcohol withdrawal and conjunctivitis. Cover for Int Med-DR Marino Objective Last Vital Signs Date Time Temp Pulse Resp B/P (MAP) Pulse Ox O2 Delivery O2 Flow Rate FiO2 08/21/20 16:00 97.7 68 18 108/69 (82) 98 08/21/20 07:41 Room Air Laboratory Tests Test 08/21/20 05:00 White Blood Count 10.9 K/UL (4.8-10.8) H Red Blood Count 3.20 M/UL (4.70-6.10) L Hemoglobin 11.3 G/DL (14.2-18.0) L Hematocrit 32.2 % (42.0-52.0) L Mean Corpuscular Volume 101 FL (80-99) H Mean Corpuscular Hemoglobin 35.4 PG (27.0-31.0) H Mean Corpuscular Hemoglobin Concent 35.2 G/DL (32.0-36.0) Red Cell Distribution Width 11.7 % (11.6-14.8) Platelet Count 114 K/UL (150-450) L Mean Platelet Volume 11.4 FL (6.5-10.1) H Neutrophils (%) (Auto) 62.4 % (45.0-75.0) Lymphocytes (%) (Auto) 16.3 % (20.0-45.0) L Monocytes (%) (Auto) 14.2 % (1.0-10.0) H Eosinophils (%) (Auto) 4.5 % (0.0-3.0) H Basophils (%) (Auto) 2.7 % (0.0-2.0) H Sodium Level 135 MMOL/L (136-145) L Potassium Level 3.0 MMOL/L (3.5-5.1) L Chloride Level 103 MMOL/L (98-107) Carbon Dioxide Level 26 MMOL/L (21-32) Anion Gap 6 mmol/L (5-15) Blood Urea Nitrogen 3 mg/dL (7-18) L Creatinine 0.6 MG/DL (0.55-1.30) Estimat Glomerular Filtration Rate > 60 mL/min (>60) Glucose Level 122 MG/DL (74-106) H Calcium Level 7.7 MG/DL (8.5-10.1) L Hepatitis A IgM Antibody Pending Hepatitis B Surface Antigen Pending Hepatitis B Core IgM Antibody Pending Hepatitis C Antibody Pending HIV (1&2) Antibody Rapid Negative (NEGATIVE) Intake and Output 08/20/20 08/21/20 19:00 07:00 Intake Total 120 ml Output Total 900 ml 800 ml Balance -900 ml -680 ml Intake Oral 120 ml Output Urine Total 900 ml 800 ml # Voids 1 Objective PHYSICAL EXAMINATION: GENERAL: The patient is well-developed and well-nourished male, who is somnolent but arousable. HEENT: Eyes with crusty discharge bilaterally and conjunctival erythema. NECK: Supple without lymphadenopathy. CHEST: Lungs are clear to auscultation bilaterally without wheezes or rales. CARDIOVASCULAR: Regular rhythm and rate. S1, S2 normal without murmurs, rubs, or gallops. ABDOMEN: Soft, nontender, nondistended. Positive bowel sounds. No evidence of hepatosplenomegaly. Currently, no rebound or guarding noted. EXTREMITIES: Negative for clubbing, cyanosis, or edema. RECTAL/GENITAL: Not performed. NEUROLOGICAL: Cranial nerves II through XII are grossly intact without focal deficits. Motor strength is 5/5 bilaterally. Deep tendon reflexes are 2+ plantar. Assessment/Plan Assessment/Plan ASSESSMENT: This is a 54-year-old male: 1. Alcohol abuse. 2. Acute alcohol withdrawal. 3. Bilateral conjunctivitis. 4. Elevated liver function tests. 5. Low grade fever TREATMENT: 1. Alcohol dependence/withdrawal. The patient has been placed on Librium and Ativan as needed for alcohol withdrawal symptoms. Gabapentin has been added for withdrawal seizure precaution. 2. Conjunctivitis. The patient has been started on tobramycin eye drops every 6 hours. 3. Elevated liver function tests is probably secondary to chronic alcoholism. 4. Urine and blood culture = no growth; Continue vanco and ceftriaxone per ID=Dr Rice. 6. Discharge planning-home with family-see soc work note Marquez Trevino MD Aug 21, 2020 17:25
--- NOTE | 2020-08-21 19:28 | NUR ---
NURSE HAND-OFF: Important Events on Shift: antibiotics, ambulate with PT, out of bed Patient Status: stable Diet: ccho medium Pending Orders: n/a Pending Results/Labs:n/a Pending MD notification:n/a Latest Vital Signs: Temperature 97.7 , Pulse 68 , B/P 108 /69 , Respiratory Rate 18 , O2 SAT 98 , Room Air, O2 Flow Rate . Vital Sign Comment: n/a Latest Acosta Fall Score: 45 Fall Risk: High Risk Safety Measures: Call light Within Reach, Side Rails x2, Bed position Low and Locked. Fall Precautions: Yellow Socks Yellow Gown Patient Fall Education Report given to Jono RIVERA.
--- NOTE | 2020-08-21 19:37 | NUR ---
NURSE NOTES: received pt and report from MIGUEL Maier. pt alert and oriented x 4 with no acute s/s of distress and no c/o pain. IV noted and saline locked. plan of care discussed.
[2020-08-21 20:00] VITALS: BP 110/68
[2020-08-22] VITALS: BP 129/76
--- NOTE | 2020-08-22 00:15 | NUR ---
NURSE NOTES: patient denies any pain at this time. he is in no acute distress and vitals have been stable to this point. patient is currently asleep.
[2020-08-22 04:00] VITALS: BP 124/75
[2020-08-22] MEDS: Tobramycin Op Soln 0.3% 5ml BOTH EYES SCH ×3 (05:28→18:23)
[2020-08-22 05:37] LABS: BASOPHILS % (AUTO) 3.9 % (0.0-2.0); EOSINOPHILS % (AUTO) 4.3 % (0.0-3.0); HEMATOCRIT 31.6 % (42.0-52.0); HEMOGLOBIN 11.3 G/DL (14.2-18.0); LYMPHOCYTES % (AUTO) 17.8 % (20.0-45.0); MEAN CORPUSCULAR VOLUME 101 FL (80-99); MONOCYTES % (AUTO) 15.9 % (1.0-10.0); PLATELET COUNT 157 K/UL (150-450); RED BLOOD COUNT 3.13 M/UL (4.70-6.10); RED CELL DISTRIBUTION WIDTH 12.4 % (11.6-14.8); WHITE BLOOD COUNT 11.4 K/UL (4.8-10.8)
[2020-08-22 06:01] LABS: ALANINE AMINOTRANSFERASE 48 U/L (12-78); ALBUMIN/GLOBULIN RATIO 0.4 (1.0-2.7); ALKALINE PHOSPHATASE 129 U/L (46-116); ANION GAP 9 mmol/L (5-15); ASPARTATE AMINO TRANSFERASE 96 U/L (15-37); BILIRUBIN,TOTAL 3.3 MG/DL (0.2-1.0); BLOOD UREA NITROGEN 5 mg/dL (7-18); CALCIUM 7.8 MG/DL (8.5-10.1); CARBON DIOXIDE 25 MMOL/L (21-32); CHLORIDE 103 MMOL/L (98-107); CREATININE 0.7 MG/DL (0.55-1.30); PHOSPHORUS 2.9 MG/DL (2.5-4.9); POTASSIUM 3.7 MMOL/L (3.5-5.1); SODIUM 137 MMOL/L (136-145)
[2020-08-22 06:06] LABS: BILIRUBIN,DIRECT 2.6 MG/DL (0.0-0.3)
--- NOTE | 2020-08-22 07:29 | NUR ---
NURSE HAND-OFF: Important Events on Shift: monitor lab values Patient Status: stable Diet: consistent carb diet Pending Orders: NA Pending Results/Labs:NA Pending MD notification:NA Latest Vital Signs: Temperature 98.6 , Pulse 67 , B/P 124 /75 , Respiratory Rate 16 , O2 SAT 97 , Room Air, O2 Flow Rate . Vital Sign Comment: stable over the shift Latest Acosta Fall Score: 45 Fall Risk: High Risk Safety Measures: Call light Within Reach, Bed Alarm Zone 2, Side Rails Side Rails x2, Bed position Low and Locked. Fall Precautions: Yellow Socks Yellow Gown Patient Fall Education Report given to MIGUEL Hardy.
--- NOTE | 2020-08-22 07:45 | NUR ---
NURSE NOTES: Pt lying in bed w/bed in lowest position and call light within reach. Pt A&Ox3, VSS, and in no apparent distress. IV site intact/asymptomatic & H/L'd and skin intact. Pt has no complaints at this time and is scheduled to go home soon. Will continue to monitor.
[2020-08-22 08:00] VITALS: BP 106/68
[2020-08-22] MEDS: Heparin 5000 units/ml inj SUBQ SCH (08:12)
[2020-08-22] MEDS ORDERED: Thiamine 100mg tab ORAL SCH (09:00)
--- NOTE | 2020-08-22 09:32 | NUR ---
RD ASSESSMENT & RECOMMENDATIONS SEE CARE ACTIVITY FOR COMPLETE ASSESSMENT DAILY ESTIMATED NEEDS: Needs based on Liver dz, 67.4kg 25-30 kcals/kg total kcals 1-1.5 g protein/kg 67-101 g total protein 25-30 mL/kg total fluid mLs NUTRITION DIAGNOSIS: Altered nutrition related lab values r/t clinical status, h/o alcohol abuse, as evidenced by A1C 6.7, elev T bili (3.3) and elev LFT's. CURRENT DIET: CCHO MED PO DIET RECOMMENDATIONS: LOW NA DIET ADDITIONAL RECOMMENDATIONS: 1) Add CCHO diet w/ po intake over 50% 2) Add GLUCERNA 1 tetra w/ meals (250 kcal/10g pro each) 3) Consider GYMNASIUM TEACHER eval for appropriate texture and improved acceptance 4) Bowel regimen, last bm noted 08/18 5) thierry, niss + accuchecks
--- NOTE | 2020-08-22 09:34 | Nephrology Progress Note ---
Assessment/Plan Problem List: (1) Electrolyte imbalance (2) Dehydration (3) Alcohol withdrawal (4) Leukocytosis (5) Fever Assessment Abnormal electrolytes Alcohol withdrawal Alcoholic liver disease Fever, sepsis Plan August 22: Labs reviewed. Electrolytes within normal limit. Stable from renal standpoint of view. August 21: Labs reviewed. Electrolyte abnormalities addressed. Most of the medication via p.o. Remains on ceftriaxone. Continue to monitor renal parameters. August 20: Labs reviewed. Electrolyte abnormalities addressed. Continue as is. IV supplements of electrolyte deficits Thiamine Hydration Per orders Subjective ROS Limited/Unobtainable: No Constitutional: Reports: malaise Objective Objective Last 24 Hour Vital Signs Date Time Temp Pulse Resp B/P (MAP) Pulse Ox O2 Delivery O2 Flow Rate FiO2 08/22/20 08:00 98.3 78 16 106/68 (81) 98 08/22/20 04:00 98.6 67 16 124/75 (91) 97 08/22/20 00:00 98.5 62 14 129/76 (93) 96 08/21/20 21:00 Room Air 08/21/20 20:00 98.2 75 16 110/68 (82) 98 08/21/20 16:00 97.7 68 18 108/69 (82) 98 08/21/20 12:00 97.2 70 18 119/63 (81) 98 Intake and Output 08/21/20 08/22/20 18:59 06:59 Intake Total 500 ml 600 ml Output Total 1500 ml 700 ml Balance -1000 ml -100 ml Intake Oral 500 ml 600 ml Output Urine Total 1500 ml 700 ml Laboratory Tests 08/22/20 05:21: White Blood Count 11.4H, Red Blood Count 3.13L, Hemoglobin 11.3L, Hematocrit 31.6L, Mean Corpuscular Volume 101H, Mean Corpuscular Hemoglobin 36.0H, Mean Corpuscular Hemoglobin Concent 35.8, Red Cell Distribution Width 12.4, Platelet Count 157, Mean Platelet Volume 11.0H, Neutrophils (%) (Auto) 58.0, Lymphocytes (%) (Auto) 17.8L, Monocytes (%) (Auto) 15.9H, Eosinophils (%) (Auto) 4.3H, Basophils (%) (Auto) 3.9H, Sodium Level 137, Potassium Level 3.7, Chloride Level 103, Carbon Dioxide Level 25, Anion Gap 9, Blood Urea Nitrogen 5L, Creatinine 0.7, Estimat Glomerular Filtration Rate > 60, Glucose Level 111H, Calcium Level 7.8L, Phosphorus Level 2.9, Magnesium Level 1.8, Total Bilirubin 3.3H, Direct Bilirubin 2.6H, Aspartate Amino Transf (AST/SGOT) 96H, Alanine Aminotransferase (ALT/SGPT) 48, Alkaline Phosphatase 129H, C-Reactive Protein, Quantitative 2.7H, Total Protein 6.7, Albumin 2.0L, Globulin 4.7, Albumin/Globulin Ratio 0.4L Height (Feet): 5 Height (Inches): 6.00 Weight (Pounds): 150 General Appearance: no apparent distress Respiratory/Chest: lungs clear Abdomen: soft, distended Objective No change Yves Otero MD Aug 22, 2020 09:34
[2020-08-22] MEDS: cefTRIAXone 1 GM in D5W 55 ML IVPB SCH (10:47)
--- NOTE | 2020-08-22 11:20 | Infectious Diseases Prog Note ---
Assessment/Plan 54 yo male with PMHx of EtOH abuse who presented to the ED yesterday with acute alcohol intoxication. COVID19 neg x1 (08/16 rapid COVID PCR neg) B/L Conjuntivitits - EOMI intact no vision problems no significant pain; mild- resolving Viral Vs bacterial Sepsis Fever; SP Leukocytosis; resolving -08/17 Bcx NTD, ucx neg -10/ u/a neg; ucx neg Bcx NTD CXR neg Elevated AST/GGT; improving- suspect probably to underlying liver disease and ETOH withdrawal- r/o infectious or other hepatobiliary disease Direct hyperbilirubinemia -Abd US: Gallbladder sludge and possible small stones. Negative for dilated bile ducts. Mild hepatic surface nodularity, could indicate early cirrhotic change Trace ascites. Incidental finding right lobe liver cyst -UDS, alcohol level neg -HIV ab screen, acute hepatitis panel neg PLAN - Continue tobramycin #7/ Eye drops -Dc empiric Ceftriaxone #7 - 10 SP IV Vancomycin #4 - f/u Cultures - Monitor CBC and Temps Thank you for this consult. [facility] will continue to follow Ms. Granados with you during her hospitalization. Subjective Allergies: Coded Allergies: No Known Allergies (Unverified , 08/16/20) afebrile >72rs mild leukocytosis improving LFts improving Bcx NTD Objective Last 24 Hour Vital Signs Date Time Temp Pulse Resp B/P (MAP) Pulse Ox O2 Delivery O2 Flow Rate FiO2 08/22/20 08:00 98.3 78 16 106/68 (81) 98 08/22/20 04:00 98.6 67 16 124/75 (91) 97 08/22/20 00:00 98.5 62 14 129/76 (93) 96 08/21/20 21:00 Room Air 08/21/20 20:00 98.2 75 16 110/68 (82) 98 08/21/20 16:00 97.7 68 18 108/69 (82) 98 08/21/20 12:00 97.2 70 18 119/63 (81) 98 Height (Feet): 5 Height (Inches): 6.00 Weight (Pounds): 150 GEN: NAD on RA HEENT: NCAT, MMM, EOMI, No scleral icterus, Eyes with mild conjunctivitis B/L - resolving CHEST Equal rise and fall B/L ABD: Soft NT Laboratory Tests Test 08/22/20 05:21 White Blood Count 11.4 K/UL (4.8-10.8) H Red Blood Count 3.13 M/UL (4.70-6.10) L Hemoglobin 11.3 G/DL (14.2-18.0) L Hematocrit 31.6 % (42.0-52.0) L Mean Corpuscular Volume 101 FL (80-99) H Mean Corpuscular Hemoglobin 36.0 PG (27.0-31.0) H Mean Corpuscular Hemoglobin Concent 35.8 G/DL (32.0-36.0) Red Cell Distribution Width 12.4 % (11.6-14.8) Platelet Count 157 K/UL (150-450) Mean Platelet Volume 11.0 FL (6.5-10.1) H Neutrophils (%) (Auto) 58.0 % (45.0-75.0) Lymphocytes (%) (Auto) 17.8 % (20.0-45.0) L Monocytes (%) (Auto) 15.9 % (1.0-10.0) H Eosinophils (%) (Auto) 4.3 % (0.0-3.0) H Basophils (%) (Auto) 3.9 % (0.0-2.0) H Sodium Level 137 MMOL/L (136-145) Potassium Level 3.7 MMOL/L (3.5-5.1) Chloride Level 103 MMOL/L (98-107) Carbon Dioxide Level 25 MMOL/L (21-32) Anion Gap 9 mmol/L (5-15) Blood Urea Nitrogen 5 mg/dL (7-18) L Creatinine 0.7 MG/DL (0.55-1.30) Estimat Glomerular Filtration Rate > 60 mL/min (>60) Glucose Level 111 MG/DL (74-106) H Calcium Level 7.8 MG/DL (8.5-10.1) L Phosphorus Level 2.9 MG/DL (2.5-4.9) Magnesium Level 1.8 MG/DL (1.8-2.4) Total Bilirubin 3.3 MG/DL (0.2-1.0) H Direct Bilirubin 2.6 MG/DL (0.0-0.3) H Aspartate Amino Transf (AST/SGOT) 96 U/L (15-37) H Alanine Aminotransferase (ALT/SGPT) 48 U/L (12-78) Alkaline Phosphatase 129 U/L (46-116) H C-Reactive Protein, Quantitative 2.7 mg/dL (0.00-0.90) H Total Protein 6.7 G/DL (6.4-8.2) Albumin 2.0 G/DL (3.4-5.0) L Globulin 4.7 g/dL Albumin/Globulin Ratio 0.4 (1.0-2.7) L Current Medications Medications (Trade) Dose Ordered Sig/Shaun Route PRN Reason Start Time Stop Time Status Last Admin Dose Admin Acetaminophen (Tylenol) 650 mg Q4H PRN ORAL Temp >100.5 08/16/20 17:00 09/15/20 16:59 08/20/20 21:32 Ceftriaxone Sodium 1 gm/ Dextrose 55 ml @ 110 mls/hr Q24H IVPB 08/17/20 10:00 08/24/20 09:59 08/22/20 10:47 Chlordiazepoxide (Librium) 25 mg Q6H PRN ORAL For Anxiety 08/18/20 11:45 08/23/20 11:29 Dextrose (Dextrose 50%) 25 ml Q30M PRN IV Hypoglycemia 08/16/20 11:30 11/14/20 11:29 Dextrose (Dextrose 50%) 50 ml Q30M PRN IV Hypoglycemia 08/16/20 11:30 11/14/20 11:29 Heparin Sodium (Porcine) (Heparin 5000 units/ml) 5,000 units EVERY 12 HOURS SUBQ 08/16/20 21:00 09/30/20 20:59 08/22/20 08:12 Lorazepam (Ativan 2mg/ml 1ml) 1 mg Q4H PRN IV agitation 08/16/20 11:30 08/23/20 11:29 Lorazepam (Ativan 2mg/ml 1ml) 1 mg Q4H PRN IV tachy HR>100 08/16/20 12:04 08/23/20 12:03 Ondansetron HCl (Zofran) 4 mg Q6H PRN IVP Nausea & Vomiting 08/16/20 11:30 09/15/20 11:29 Polyethylene Glycol (Miralax) 17 gm HSPRN PRN ORAL Constipation 08/16/20 11:30 09/15/20 11:29 Potassium Chloride (K-Dur) 40 meq TWICE A DAY ORAL 08/21/20 12:15 11/19/20 12:14 08/22/20 08:12 Thiamine HCl (Vitamin B1) 100 mg DAILY ORAL 08/22/20 09:00 09/21/20 08:59 08/22/20 08:13 Tobramycin Sulfate (Tobramycin Opth Soln) 1 drop Q6HR BOTH EYES 08/16/20 18:00 08/23/20 17:59 08/22/20 05:28 Zolpidem Tartrate (Ambien) 5 mg HSPRN PRN ORAL Insomnia 08/16/20 11:30 08/23/20 11:29 Carolina Vargas M.D. Aug 22, 2020 11:20
[2020-08-22 11:52] VITALS: BP 133/67
--- NOTE | 2020-08-22 12:03 | Pulmonology Progress Note ---
Subjective ROS Limited/Unobtainable: No Constitutional: Reports: no symptoms HEENT: Repors: no symptoms Respiratory: Reports: no symptoms Allergies: Coded Allergies: No Known Allergies (Unverified , 08/16/20) Objective Last 24 Hour Vital Signs Date Time Temp Pulse Resp B/P (MAP) Pulse Ox O2 Delivery O2 Flow Rate FiO2 08/22/20 11:52 98.6 62 16 133/67 (89) 99 08/22/20 08:00 98.3 78 16 106/68 (81) 98 08/22/20 04:00 98.6 67 16 124/75 (91) 97 08/22/20 00:00 98.5 62 14 129/76 (93) 96 08/21/20 21:00 Room Air 08/21/20 20:00 98.2 75 16 110/68 (82) 98 08/21/20 16:00 97.7 68 18 108/69 (82) 98 Intake and Output 08/21/20 08/22/20 19:00 07:00 Intake Total 500 ml 600 ml Output Total 1500 ml 700 ml Balance -1000 ml -100 ml Intake Oral 500 ml 600 ml Output Urine Total 1500 ml 700 ml General Appearance: WD/WN Respiratory: chest wall non-tender, lungs clear Cardiovascular: normal peripheral pulses, regularly irregular Abdomen: normal bowel sounds, non distended Genitourinary: normal external genitalia Skin: no lesions Lymphatic: no neck adenopathy Laboratory Tests 08/22/20 05:21: White Blood Count 11.4H, Red Blood Count 3.13L, Hemoglobin 11.3L, Hematocrit 31.6L, Mean Corpuscular Volume 101H, Mean Corpuscular Hemoglobin 36.0H, Mean Corpuscular Hemoglobin Concent 35.8, Red Cell Distribution Width 12.4, Platelet Count 157, Mean Platelet Volume 11.0H, Neutrophils (%) (Auto) 58.0, Lymphocytes (%) (Auto) 17.8L, Monocytes (%) (Auto) 15.9H, Eosinophils (%) (Auto) 4.3H, Basophils (%) (Auto) 3.9H, Sodium Level 137, Potassium Level 3.7, Chloride Level 103, Carbon Dioxide Level 25, Anion Gap 9, Blood Urea Nitrogen 5L, Creatinine 0.7, Estimat Glomerular Filtration Rate > 60, Glucose Level 111H, Calcium Level 7.8L, Phosphorus Level 2.9, Magnesium Level 1.8, Total Bilirubin 3.3H, Direct Bilirubin 2.6H, Aspartate Amino Transf (AST/SGOT) 96H, Alanine Aminotransferase (ALT/SGPT) 48, Alkaline Phosphatase 129H, C-Reactive Protein, Quantitative 2.7H, Total Protein 6.7, Albumin 2.0L, Globulin 4.7, Albumin/Globulin Ratio 0.4L Current Medications Medications (Trade) Dose Ordered Sig/Shaun Route PRN Reason Start Time Stop Time Status Last Admin Dose Admin Acetaminophen (Tylenol) 650 mg Q4H PRN ORAL Temp >100.5 08/16/20 17:00 09/15/20 16:59 08/20/20 21:32 Chlordiazepoxide (Librium) 25 mg Q6H PRN ORAL For Anxiety 08/18/20 11:45 08/23/20 11:29 Dextrose (Dextrose 50%) 25 ml Q30M PRN IV Hypoglycemia 08/16/20 11:30 11/14/20 11:29 Dextrose (Dextrose 50%) 50 ml Q30M PRN IV Hypoglycemia 08/16/20 11:30 11/14/20 11:29 Heparin Sodium (Porcine) (Heparin 5000 units/ml) 5,000 units EVERY 12 HOURS SUBQ 08/16/20 21:00 09/30/20 20:59 08/22/20 08:12 Lorazepam (Ativan 2mg/ml 1ml) 1 mg Q4H PRN IV agitation 08/16/20 11:30 08/23/20 11:29 Lorazepam (Ativan 2mg/ml 1ml) 1 mg Q4H PRN IV tachy HR>100 08/16/20 12:04 08/23/20 12:03 Ondansetron HCl (Zofran) 4 mg Q6H PRN IVP Nausea & Vomiting 08/16/20 11:30 09/15/20 11:29 Polyethylene Glycol (Miralax) 17 gm HSPRN PRN ORAL Constipation 08/16/20 11:30 09/15/20 11:29 Potassium Chloride (K-Dur) 40 meq TWICE A DAY ORAL 08/21/20 12:15 11/19/20 12:14 08/22/20 08:12 Thiamine HCl (Vitamin B1) 100 mg DAILY ORAL 08/22/20 09:00 09/21/20 08:59 08/22/20 08:13 Tobramycin Sulfate (Tobramycin Opth Soln) 1 drop Q6HR BOTH EYES 08/16/20 18:00 08/23/20 17:59 08/22/20 12:00 Zolpidem Tartrate (Ambien) 5 mg HSPRN PRN ORAL Insomnia 08/16/20 11:30 08/23/20 11:29 Assessment/Plan Problems: (1) Fever (2) Alcohol withdrawal (3) 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
--- NOTE | 2020-08-22 12:18 | Internal Med Progress Note ---
Subjective Date of Service: Aug 22, 2020 Physician Name Marquez Trevino Attending Physician Gentry Marino MD Current Medications Medications (Trade) Dose Ordered Sig/Shaun Route PRN Reason Start Time Stop Time Status Last Admin Dose Admin Acetaminophen (Tylenol) 650 mg Q4H PRN ORAL Temp >100.5 08/16/20 17:00 09/15/20 16:59 08/20/20 21:32 Chlordiazepoxide (Librium) 25 mg Q6H PRN ORAL For Anxiety 08/18/20 11:45 08/23/20 11:29 Dextrose (Dextrose 50%) 25 ml Q30M PRN IV Hypoglycemia 08/16/20 11:30 11/14/20 11:29 Dextrose (Dextrose 50%) 50 ml Q30M PRN IV Hypoglycemia 08/16/20 11:30 11/14/20 11:29 Heparin Sodium (Porcine) (Heparin 5000 units/ml) 5,000 units EVERY 12 HOURS SUBQ 08/16/20 21:00 09/30/20 20:59 08/22/20 08:12 Lorazepam (Ativan 2mg/ml 1ml) 1 mg Q4H PRN IV agitation 08/16/20 11:30 08/23/20 11:29 Lorazepam (Ativan 2mg/ml 1ml) 1 mg Q4H PRN IV tachy HR>100 08/16/20 12:04 08/23/20 12:03 Ondansetron HCl (Zofran) 4 mg Q6H PRN IVP Nausea & Vomiting 08/16/20 11:30 09/15/20 11:29 Polyethylene Glycol (Miralax) 17 gm HSPRN PRN ORAL Constipation 08/16/20 11:30 09/15/20 11:29 Potassium Chloride (K-Dur) 40 meq TWICE A DAY ORAL 08/21/20 12:15 11/19/20 12:14 08/22/20 08:12 Thiamine HCl (Vitamin B1) 100 mg DAILY ORAL 08/22/20 09:00 09/21/20 08:59 08/22/20 08:13 Tobramycin Sulfate (Tobramycin Opth Soln) 1 drop Q6HR BOTH EYES 08/16/20 18:00 08/23/20 17:59 08/22/20 12:00 Zolpidem Tartrate (Ambien) 5 mg HSPRN PRN ORAL Insomnia 08/16/20 11:30 08/23/20 11:29 Allergies: Coded Allergies: No Known Allergies (Unverified , 08/16/20) ROS Limited/Unobtainable: No Constitutional: Reports: no symptoms HEENT: Reports: no symptoms Cardiovascular: Reports: no symptoms Respiratory: Reports: no symptoms Gastrointestinal/Abdominal: Reports: no symptoms Genitourinary: Reports: no symptoms Neurologic/Psychiatric: Reports: no symptoms Subjective 54 YO M admitted with alcohol intoxication. Now alcohol withdrawal and conjunct ivitis. Cover for Int Johnathon-DR Marino Objective Last Vital Signs Date Time Temp Pulse Resp B/P (MAP) Pulse Ox O2 Delivery O2 Flow Rate FiO2 08/22/20 11:52 98.6 62 16 133/67 (89) 99 08/21/20 21:00 Room Air Laboratory Tests Test 08/22/20 05:21 White Blood Count 11.4 K/UL (4.8-10.8) H Red Blood Count 3.13 M/UL (4.70-6.10) L Hemoglobin 11.3 G/DL (14.2-18.0) L Hematocrit 31.6 % (42.0-52.0) L Mean Corpuscular Volume 101 FL (80-99) H Mean Corpuscular Hemoglobin 36.0 PG (27.0-31.0) H Mean Corpuscular Hemoglobin Concent 35.8 G/DL (32.0-36.0) Red Cell Distribution Width 12.4 % (11.6-14.8) Platelet Count 157 K/UL (150-450) Mean Platelet Volume 11.0 FL (6.5-10.1) H Neutrophils (%) (Auto) 58.0 % (45.0-75.0) Lymphocytes (%) (Auto) 17.8 % (20.0-45.0) L Monocytes (%) (Auto) 15.9 % (1.0-10.0) H Eosinophils (%) (Auto) 4.3 % (0.0-3.0) H Basophils (%) (Auto) 3.9 % (0.0-2.0) H Sodium Level 137 MMOL/L (136-145) Potassium Level 3.7 MMOL/L (3.5-5.1) Chloride Level 103 MMOL/L (98-107) Carbon Dioxide Level 25 MMOL/L (21-32) Anion Gap 9 mmol/L (5-15) Blood Urea Nitrogen 5 mg/dL (7-18) L Creatinine 0.7 MG/DL (0.55-1.30) Estimat Glomerular Filtration Rate > 60 mL/min (>60) Glucose Level 111 MG/DL (74-106) H Calcium Level 7.8 MG/DL (8.5-10.1) L Phosphorus Level 2.9 MG/DL (2.5-4.9) Magnesium Level 1.8 MG/DL (1.8-2.4) Total Bilirubin 3.3 MG/DL (0.2-1.0) H Direct Bilirubin 2.6 MG/DL (0.0-0.3) H Aspartate Amino Transf (AST/SGOT) 96 U/L (15-37) H Alanine Aminotransferase (ALT/SGPT) 48 U/L (12-78) Alkaline Phosphatase 129 U/L (46-116) H C-Reactive Protein, Quantitative 2.7 mg/dL (0.00-0.90) H Total Protein 6.7 G/DL (6.4-8.2) Albumin 2.0 G/DL (3.4-5.0) L Globulin 4.7 g/dL Albumin/Globulin Ratio 0.4 (1.0-2.7) L Intake and Output 08/21/20 08/22/20 19:00 07:00 Intake Total 500 ml 600 ml Output Total 1500 ml 700 ml Balance -1000 ml -100 ml Intake Oral 500 ml 600 ml Output Urine Total 1500 ml 700 ml Objective PHYSICAL EXAMINATION: GENERAL: The patient is well-developed and well-nourished male, who is somnolent but arousable. HEENT: Eyes with crusty discharge bilaterally and conjunctival erythema. NECK: Supple without lymphadenopathy. CHEST: Lungs are clear to auscultation bilaterally without wheezes or rales. CARDIOVASCULAR: Regular rhythm and rate. S1, S2 normal without murmurs, rubs, or gallops. ABDOMEN: Soft, nontender, nondistended. Positive bowel sounds. No evidence of hepatosplenomegaly. Currently, no rebound or guarding noted. EXTREMITIES: Negative for clubbing, cyanosis, or edema. RECTAL/GENITAL: Not performed. NEUROLOGICAL: Cranial nerves II through XII are grossly intact without focal deficits. Motor strength is 5/5 bilaterally. Deep tendon reflexes are 2+ plantar. Assessment/Plan Assessment/Plan ASSESSMENT: This is a 54-year-old male: 1. Alcohol abuse. 2. Acute alcohol withdrawal. 3. Bilateral conjunctivitis. 4. Elevated liver function tests. 5. liver cirrhosis TREATMENT: 1. Alcohol dependence/withdrawal. The patient has been placed on Librium and Ativan as needed for alcohol withdrawal symptoms. Gabapentin has been added for withdrawal seizure precaution. 2. Conjunctivitis. The patient has been started on tobramycin eye drops every 6 hours. 3. Elevated liver function tests is probably secondary to chronic alcoholism. 4. Urine and blood culture = no growth; Continue vanco and ceftriaxone per ID =Dr Rice. 6. Discharge planning-home with family-see soc work note Marquez Trevino MD Aug 22, 2020 12:18
[2020-08-22 16:00] VITALS: BP 146/78
--- NOTE | 2020-08-22 19:30 | NUR ---
NURSE HAND-OFF: Important Events on Shift:Pt ambulated and is scheduled to go home this evening w/FWW; daughter to pick him up Patient Status: Stable Diet: Regular Latest Vital Signs: Temperature 98.9 , Pulse 65 , B/P 146 /78 , Respiratory Rate 16 , O2 SAT 97 , Room Air, O2 Flow Rate . Latest Acosta Fall Score: 60 Fall Risk: High Risk Safety Measures: Call light Within Reach, Bed Alarm Zone 1, Side Rails Side Rails x2, Bed position Low and Locked. Fall Precautions: Yellow Socks Yellow Gown Patient Fall Education Report given to MIGUEL Uribe. Discharge paperwork completed.
--- NOTE | 2020-08-22 19:30 | NUR ---
NURSE NOTES: received report from kait lemos. patient is on bed, awake and verbally responsive. on room air. no sob. with left hand iv access, saline lock. denies any pain or discomfort. per canelo" patient is for discharge tonight at 1930 to home via a private vehicle with philip(daughter) with a standard walker". reiterated to call and ask for assistance. bed locked and in lowest position. call light and light button within easy reach. will continue plan of care.
[2020-08-22] MEDS ORDERED: Tubing IV Secondary IV ONE (19:59)
--- NOTE | 2020-08-22 20:00 | NUR ---
NURSE NOTES: Patient discharged per wheelchair with a private vehicle with philip(daughter). discharge instructions given to the patient by the am nurse. discharge papers was signed by the patient. discharged with a walker. discontinued iv line and name band out. all belongings was taken upon discharge. charge nurse made aware.
--- NOTE | 2020-08-23 20:45 | Discharge Summary ---
Discharge Summary Discharge Summary _ DATE OF ADMISSION: 08/16/2020 DATE OF DISCHARGE: 08/22/2020 ADMITTING MD: Dr. Gentry Marino DISCHARGED BY: Dr. Ty Alexandre CONSULTANTS: Dr. Ty Otero BRIEF HOSPITAL COURSE: Patient is a 54-year-old male who presented to the ED with chief compl aint of acute alcohol intoxication. Patient apparently binge drinks. The patient apparently has a family however has been eating on the streets. He presented to ED complaining of not feeling well. He also complained of drainage from both eyes x2 days. The patient has subjective fevers and chills. Upon evaluation at ED, patient was febrile with temperature of 100.2. Blood pre ssure 152/80, heart rate 111. Blood work showed WBC elevated to 22. Hemoglobin hematocrit were stable. Electrolytes showed sodium level of 127, potassium 3.1. BUN 11 and creatinine 1.0. Lactic acid 2.7. AST 156. ALT 61. Alkaline phosphatase 130. Urine drug screen negative. EKG was in normal sinus rhythm. Chest x-ray did not show any acute disease. He was given IV bolus. He was started empirically on broad-spectrum antibiotics. Rapid COVID-19 testing was negative. He was then admitted for evaluation of sepsis. Patient was given IV banana bag. He was placed on Librium and Ativan for alcohol withdrawal symptoms. Patient was started empirically on ceftriaxone. ID was consulted. He was given IV vancomycin and tobramycin eyedrops. LFTs were elevated. Abdominal ultrasound showed gallbladder sludge. Possible small stones. Negative for dilated bile ducts. Mild hepatic surface nodularity, early cirrhotic changes. Incidental right lobe liver cyst. Blood culture did not isolate any growth. Urine culture with no growth. HIV screening was negative. Patient eventually defervesced. WBC down trended. Patient was cleared for discharge home. FINAL DIAGNOSES: Alcohol abuse with acute alcohol withdrawal Bilateral conjunctivitis Elevated liver function test Liver cirrhosis DISPOSITION: Patient was discharged home with family. DISCHARGE MEDICATIONS: Refer to Discharge Medication List. DISCHARGE INSTRUCTIONS: Follow-up in a week. I have been assigned to complete a discharge summary on this account, I was not involved with the patient's management.--MANE Soliman Jacqueline Robles NP Aug 23, 2020 20:45
--- NOTE | 2020-08-24 06:55 | CDS Physician Query ---
Clarification is required for compliance, coding accuracy, and to reflect severity of illness for this patient. Dear Dr. Marquez Trevino M.D. Date: 08/24/2020 CDI/CDS Name: Deon Wagner Clinical Documentation Statement: "54-year-old male who presents with a chief complaint of acute alcohol intoxication. " [ H& P Marquez Trevino M.D..08/16/20] ASSESSMENT: Alcohol abuse, Acute alcohol withdrawal, Bilateral conjunctivitis, Elevated liver function tests. NUTRITION DIAGNOSIS: Altered nutrition related lab values r/t clinical status, h/o alcohol abuse, as evidenced by A1C 6.7, elev T bili (3.3) and elev LFT's. [Virginia Laura, MARY 08/22] Clinical Finding Show: BMI: 23.1 kg/m2 LAB (08/16) : Chem: Albumin 3.1 [3.4-5.0], Calcium 8.1 [ 8.5-10.1] Medication: Dextrose 50ml IV Please select the most appropriate option: [ X] Protein/Calorie Malnutrition [ ] Mild [ X] Moderate [ ] Severe [] Other [] Unable to determine [] Not Applicable Present on Admission: [X] Yes [] No [] Clinically Undetermined Physician signature Date Please also document in your Progress Notes and/or Discharge Summary and indicate if the condition was present on admission. MTDD
--- NOTE | 2020-08-24 07:00 | CDS Physician Query ---
Dear Dr. Marquez Trevino M.D. Date: 08/24/2020 CDI/CDS Name: Deon Wagner Clinical Documentation Statement: "54-year-old male who presents with a chief complaint of acute alcohol intoxication. " [ H& P Marquez Trevino M.D..08/16/20] ASSESSMENT: Alcohol abuse, Acute alcohol withdrawal, Bilateral conjunctivitis, Elevated liver function tests. NUTRITION DIAGNOSIS: Altered nutrition related lab values r/t clinical status, h/o alcohol abuse, as evidenced by A1C 6.7, elev T bili (3.3) and elev LFT's. [Virginia Laura, RD 08/22] Clinical Finding Show: LAB (08/16) : Calcium 8.1 [ 8.5-10.1] Sodium level 127 [136-145] MMOL/L Chloride Level 88 [98-107] MMOL/L Please Clarify the diagnosis associated with this finding: [ X] Hyponatremia [X ] Hypochloremia [ X] Hypocalcemia [ ] Finding no significant [ ] Other: Present on Admission: [X] Yes [] No [] Clinically Undetermined Physician signature Date Please also document in your Progress Notes and/or Discharge Summary and indicate if the condition was present on admission. MTDD
--- NOTE | 2020-08-24 07:56 | CDS Physician Query ---
Clarification is required for compliance, coding accuracy, and to reflect severity of illness for this patient. Dear Dr. Marquez Trevino M.D. Date: 08/24/2020 CDI/CDS Name: Deon Wagner Clinical Documentation Statement: "54-year-old male who presents with a chief complaint of acute alcohol intoxication. " [ H& P Marquez Trevino M.D..08/16/20] ASSESSMENT: Alcohol abuse, Acute alcohol withdrawal, Bilateral conjunctivitis, Elevated liver function tests. ASSESSMENT:B/L Conjuntivitits - EOMI intact no vision problems no significant pain Viral Vs bacterial Sepsis, Fever, Leukocytosis [ ID PN Aden Rice MD 08/18] Clinical Finding Show: Vitals (08/16): T100.2F, Pulse 111, RR 23. LAB (08/16) : Hemat; WBC 22.4, Neut% 81 Chem: Sodium 127, Gluc 177. Urines(08/16): Ur.Bacteria "Occasional", Ur. Leuk Paulette 1+ Medication: Vancomycin IV, Ceftriaxone IV A possible diagnosis of "SEPSIS' was made in the medical record on Infection disease PNs but was not included in Discharge Summary. Upon review, it is difficult to determine whether this diagnosis has been ruled in, ruled out, or is still being worked up. Please indicate below the status of the aforementioned diagnosis: [] Treated and resolve [X] Presumed and treated [] Currently under treatment [] Still being worked-up [] Ruled out Present on Admission: [X] Yes [] No [] Clinically Undetermined Physician signature Date Please also document in your Progress Notes and/or Discharge Summary and indicate if the condition was present on admission. MTDD
== END 2020-08-22 20:00 | disposition home or self-care (01) | DRG 720 ==
LOC: EMR 09:06 → 2W 10:48 → EDBEDREQ 12:08 → 2W 18:15 → 2E 20:09 → 3E 08-18 11:40
DX: A41.9 Sepsis, unspecified organism (principal); F10.239 Alcohol dependence with withdrawal, unspecified; K70.30 Alcoholic cirrhosis of liver without ascites; H10.9 Unspecified conjunctivitis; K70.9 Alcoholic liver disease, unspecified; Z59.0 Homelessness; E87.1 Hypo-osmolality and hyponatremia; E83.51 Hypocalcemia; E44.0 Moderate protein-calorie malnutrition; Z68.23 Body mass index [BMI] 23.0-23.9, adult
CPT/HCPCS: 36415; 71045; 76700; 80048; 80053; 80061; 80202; 80307; 81003; 82140; 82248; 82607; 82728; 82746; 82962; 82977; 83036; 83540; 83550; 83605; 83735; 83880; 84100; 84443; 84550; 85007; 85025; 86140; 86703; 86705; 86709; 86710; 86803; 87040; 87081; 87086; 87340; 93005; 96361; 96365; 99291; G0480; J7030; J8499; U0002